=== PATIENT | male | born 1980 | race Caucasian/White ===

== ENCOUNTER 2023-12-12 05:04 | Inpatient (IN) ==
--- OUTSIDE RECORDS SUMMARY | 2023-12-12 05:11 | External Medical Summary | Continuity of Care Document ---
Author Name Unknown Organization [facility] Edyta Mendez [address] [facility] [address] [place] [phone] Care Team Providers Care Credit Adjuster Name Role Phone Carri Pacheco Primary Care Physician [phone] [id number]/23 [facility] [address] [facility] 30 [facility], [address]tr[address] [place] [phone] Encounter Diagnosis C7 cervical fracture(Discharge Diagnosis) - 06/24/23 Cervical stenosis of spine(Discharge Diagnosis) - 06/24/23 Arm weakness(Discharge Diagnosis) - 06/24/23 Discharge Disposition: Home or Self Care Attending Physician: SENG Morales Joshua P Allergies, Adverse Reactions, Alerts Substance Reaction Severity Status amoxicillin patient stated he was a baby does not kno w Active Immunizations Given and Recorded Vaccine Date Status Refusal Reason influenza virus vaccine, inactivated 09/22/21 Give n SARS-CoV-2 (COVID-19) mRNA BNT-162b2 vax 1 02/05/21 Recorded SARS-CoV-2 (COVID-19) mRNA BNT-162b2 vax 2 01/13/21 Recorded 1Result Comment: 2021-09-22: Historical information-source unspecified 2Result Comment: 2021-09-22: Historical information-source unspecified Medications Flexeril 10 mg oral tablet Start: 04/23/23 15:35:00 EDT, 1 tab, PO, tid, Disp# 21 tab, Refills: 0, PRN: as needed for spasm, Pharmacy: [facility] Start Date: 04/23/23 Status: Ordered oxyCODONE 5 mg oral tablet Start: 04/23/23 15:35:00 EDT, 1 tab, PO, q6h, Disp# 15 tab, Refills: 0, PRN: as needed for pain, Pharmacy: [facility] Start Date: 04/23/23 Stop Date: 04/28/23 Status: Ordered Mental Status 06/24/23 Barriers to Learning one year None evide nt Mandatory Health Literacy Documentation Yes Health Literacy Communication Barriers N ever Primary Language Hungarian Problem List Condition Confirmation Course Effective Dates Status Health St [facility] Informant Right ankle pain Confirmed Active Gout Confirmed Active Right knee pain Confirmed Active Diagnosis Diagnosis Type Effective Dates Health Status Cl inical Service Informant Cervical stenosis of spine Discharge Diagnosis 06/24/23 Non-Specified C7 cervical fracture Discharge Diagnosis 06/24/23 Non-Specified Arm weakness Discharge Diagnosis 06/24/23 Non-Specified Procedures Procedure Date Related Diagnosis Body Site Status LASIK 09/30/22 Completed Tear of anterior cruciate li gament of right knee 11/01/14 Completed Appendectomy Completed Bursectomy 1 Completed 1R knee Social History Social History Type Response Smoking Status Never smoked cigaret nilsa Sex Patient Care team information Care Team Personnel Name: MD Junior, Carri Olmedo Position: Physician Member Role: Primary Care Provider Address: Address: [address] [place] [address] [place]
--- OUTSIDE RECORDS SUMMARY | 2023-12-12 05:11 | External Medical Summary | Continuity of Care Document ---
Author Name Unknown Organization [id number] Address [address] [place] [phone] Care Team Providers Care Beck Tender Name Role Phone Carri Pacheco Primary Care Physician [phone] [id number] Date(s): 06/22/23 - 06/22/23 [facility] [address] [place] [id number] [facility] [address] [place] [address] Discharge Disposition: Home or Self Care Attending Physician: MD Pacheco Ravishankar E Referring Physician: MD Godwin Jesse E Allergies, Adverse Reactions, Alerts Substance Reaction Severity [...] 0, PRN: as needed for spasm, Pharmacy: [facility] Start Date: 04/23/23 Status: Ordered oxyCODONE 5 mg oral tablet Start: 04/23/23 15:35:00 EDT, 1 tab, PO, q6h, Disp# 15 tab, Refills: 0, PRN: as needed for pain, Pharmacy: [facility] Start Date: 04/23/23 Stop Date: 04/28/23 Status: Ordered Problem List Condition Confirmation Course Effective Dates Status Health St [facility] Informant Right ankle pain Confirmed Active Gout Confirmed Active Right knee pain Confirmed Active Procedures Procedure Date Related Diagnosis Body Site Status LASIK 09/30/22 Completed Tear of anterior cruciate li gament of right knee 11/01/14 Completed Appendectomy Completed Bursectomy 1 Completed 1R knee Social History Social History Type Response Smoking Status Never smoked cigaret nilsa Sex Patient Care team information Care Team Personnel Name: MD Junior, Carri Olmedo Position: Physician Member Role: Primary Care Provider Address: Address: [address] [place] [address], [place] [address] [place]
--- OUTSIDE RECORDS SUMMARY | 2023-12-12 05:11 | External Medical Summary | Continuity of Care Document ---
Author Name Unknown Organization [id number] Address [address] [place] [phone] Care Team Providers Care Bariatric Coordinator Name Role Phone Carri Pacheco Primary Care Physician [phone] [id number] Date(s[facility] - [facility]/22/23 [facility] [address] [place] [id number] [facility] [address] [place] [address] Discharge Disposition: Home or Self Care Attending [...] 0, PRN: as needed for spasm, Pharmacy: [facility] Start Date: 04/23/23 Status: Ordered oxyCODONE 5 mg oral tablet Start: 04/23/23 15:35:00 EDT, 1 tab, PO, q6h, Disp# 15 tab, Refills: 0, PRN: as needed for pain, Pharmacy: [facility] Start Date: 04/23/23 Stop Date: 04/28/23 Status: [...] Member Role: Primary Care Provider Address: Address: [address] [place] [address], [place] [address] [place]
[2023-12-12] MEDS: SODIUM CHLORIDE 0.9% 1,000 ML IV SCH ×2 (05:39→05:58)
[2023-12-12] MEDS ORDERED: VANCOMYCIN CONSULT ACTIVE PRN (05:53)
[2023-12-12] MEDS: KETOROLAC 30 MG/ML VIAL IV STA (05:57)
[2023-12-12] MEDS: ACETAMINOPHEN 1,000 MG/100 ML VIAL IV STA (05:57)
[2023-12-12 06:12] LABS: Appearance Urine Turbid (Clear); Bilirubin Urine Negative (Negative); Blood Urine 2+ (Negative); Color Urine Orange; Epithelial Cell Urine Auto >30 /lpf (0-5); Glucose Urine UA Negative (Negative); Ketones Urine Negative (Negative); Leukocyte Esterase Urine Negative (Negative); Nitrite Urine Negative (Negative); Protein Urine 2+ (Negative); RBC Urine Automated 0-4 /hpf (0-4); Urobilinogen Urine Negative (Negative)
[2023-12-12] MEDS: VANCOMYCIN HCL 2,000 MG in SODIUM CHLORIDE 0.9% 500 ML IV ONE (06:16)
[2023-12-12] MEDS: CEFEPIME 2,000 MG in SYRINGE 0 ML IV STA (06:16)
[2023-12-12 06:21] LABS: BUN Creatinine Ratio 21.3 (10-20); Bilirubin Direct 0.6 mg/dl (0-0.2); Bilirubin,Total 1.9 mg/dl (0.2-1.0); Creatinine Clr Calc Pharmacy 77.3 ml/min; Est GFR (African American) 65.2 ml/min; Est GFR (Non-African American) 56.2 ml/min; Magnesium 1.4 mg/dl (1.7-2.4); Potassium 3.5 mmol/L (3.5-5.1); Total Protein 7.5 gm/dl (6.0-8.3)
[2023-12-12 06:26] LABS: Troponin I High Sensitivity 16.3 pg/ml (0-20)
[2023-12-12 06:40] LABS: Hematocrit (blood only) 46.7 % (42.0-52.0); Hemoglobin 16.8 g/dl (14.0-18.0); Mean Corpuscular Hemoglobin 29.9 pg (25.0-34.0); Mean Corpuscular Volume 83.1 fL (80.0-100.0); Mean Platelet Volume 10.4 fL (9.4-12.4); Platelet Count 134 K/uL (130-400); RDW Coefficient of Variation 12.4 % (11.5-14.5); RDW Standard Deviation 37.8 fL (36.4-46.3); Red Blood Count 5.62 M/uL (4.70-6.10); White Blood Count 9.75 K/ul (4.8-10.8)
[2023-12-12] MEDS: OPTIRAY 320 500ml IV ONE (06:48)
[2023-12-12 06:58] LABS: Basophils # (auto) 0.03 K/uL (0.00-0.20); Basophils % (auto) 0.3 %; Echinocytes 1+; Eosinophils # (auto) 0.02 K/uL (0.00-0.50); Eosinophils % (auto) 0.2 %; Immature Granulocytes # (auto) 0.04 K/uL (0.01-0.20); Immature Granulocytes % (auto) 0.4 %; Lymphocytes # (auto) 0.24 K/uL (1.20-3.40); Lymphocytes % (auto) 2.5 %; Monocytes # (auto) 0.27 K/uL (0.11-0.59); Monocytes % (auto) 2.8 %; Neutrophils # (auto) 9.15 K/uL (1.40-6.50); Neutrophils % (auto) 93.8 %
[2023-12-12 07:02] LABS: Bacteria Urine Automated 1+ (Negative)
--- NOTE | 2023-12-12 07:04 | Emergency Department Note ---
History of Present Illness General Chief complaint: Fever Stated complaint: FEVER,SWELLING Time Seen by Provider: 12/12/23 05:50 History of Present Illness Maximum Pain Intensity: 10 This is a 43-year-old male presenting to the emergency department for evaluation of fever and left side armpit swelling for the past 2 days. The patient is usually healthy and does not take medication on a regular basis. He states that some of his kids have been ill with flulike symptoms, however he developed pain into his armpit. He noticed redness and swelling in this area, and the pain is increased to a 10/10. He has had a fever at home. Home Medications Medication Instructions Recorded Confirmed Type ondansetron 8 mg disintegrating 8 mg PO TID PRN Nausea And Vomiting 12/12/23 12/12/23 History tablet Allergies Allergy/AdvReac Type Severity Reaction Status Date / Time amoxicillin Allergy Unknown HAPPENED Verified 12/12/23 08:10 AN INFANT Penicillins Allergy Unknown HAPPENED Verified 12/12/23 08:10 AN INFANT Past Med/Surg History Medical History No pertinent past medical history No pertinent family history Surgical History No pertinent past surgical history Social History Smoking Status: Never smoker Preferred Language: Citizen Of [place] Feels Safe at Home: Yes Review of Systems A total of 10 systems reviewed and were otherwise negative Physical Exam Vital Signs Vital Signs - 24 hr 12/12/23 05:09 12/12/23 05:29 12/12/23 05:46 Temperature 36.9 C 38.6 C H Temperature Source Oral Oral Pulse Rate 132 H 115 H Pulse Rate [Finger] 118 H Pulse Rate from SpO2 Sensor Respiratory Rate 18 28 H Respiratory Effort / Characteristics Non-Labored Spontaneous Non-Labored Respiratory Depth Normal Normal Respiratory Pattern Regular Regular Blood Pressure 90/65 L Blood Pressure [Right Arm] 120/80 Blood Pressure Mean 73 Blood Pressure Mean [Right Arm] 93 Blood Pressure Position Sitting Pulse Oximetry 98 97 Oxygen Delivery Method Room Air Sepsis Recent Fever Within 48 Hours Yes Sepsis New/Unexplained Change in Mental Status N/A Sepsis Action Taken by Nursing Adv Provider Notified 12/12/23 05:46 12/12/23 07:05 12/12/23 07:15 Temperature Temperature Source Pulse Rate 110 H 105 H Pulse Rate [Finger] Pulse Rate from SpO2 Sensor 110 H 105 H Respiratory Rate 17 24 Respiratory Effort / Characteristics Respiratory Depth Respiratory Pattern Blood Pressure 113/71 121/77 Blood Pressure [Right Arm] Blood Pressure Mean 85 91 Blood Pressure Mean [Right Arm] Blood Pressure Position Pulse Oximetry 96 98 Oxygen Delivery Method Room Air Room Air Room Air Sepsis Recent Fever Within 48 Hours Sepsis New/Unexplained Change in Mental Status Sepsis Action Taken by Nursing 12/12/23 07:28 12/12/23 07:30 12/12/23 08:00 Temperature 37.5 C Temperature Source Oral Pulse Rate 103 H 98 H Pulse Rate [Finger] Pulse Rate from SpO2 Sensor 100 H 96 H Respiratory Rate 23 19 Respiratory Effort / Characteristics Respiratory Depth Respiratory Pattern Blood Pressure 110/71 106/58 L Blood Pressure [Right Arm] Blood Pressure Mean 84 74 Blood Pressure Mean [Right Arm] Blood Pressure Position Pulse Oximetry 96 96 Oxygen Delivery Method Room Air Room Air Sepsis Recent Fever Within 48 Hours Sepsis New/Unexplained Change in Mental Status Sepsis Action Taken by Nursing 12/12/23 08:21 12/12/23 08:30 12/12/23 09:35 Temperature Temperature Source Pulse Rate 100 H 97 H 114 H Pulse Rate [Finger] Pulse Rate from SpO2 Sensor 100 H 98 H 114 H Respiratory Rate 13 23 24 Respiratory Effort / Characteristics Respiratory Depth Respiratory Pattern Blood Pressure 111/71 96/72 L 103/74 Blood Pressure [Right Arm] Blood Pressure Mean 84 80 83 Blood Pressure Mean [Right Arm] Blood Pressure Position Pulse Oximetry 97 96 97 Oxygen Delivery Method Room Air Room Air Room Air Sepsis Recent Fever Within 48 Hours Sepsis New/Unexplained Change in Mental Status Sepsis Action Taken by Nursing 12/12/23 10:00 12/12/23 10:11 12/12/23 10:31 Temperature Temperature Source Pulse Rate 109 H 107 H 109 H Pulse Rate [Finger] Pulse Rate from SpO2 Sensor 109 H Respiratory Rate 28 H 21 Respiratory Effort / Characteristics Respiratory Depth Respiratory Pattern Blood Pressure 119/76 113/72 Blood Pressure [Right Arm] Blood Pressure Mean 90 85 Blood Pressure Mean [Right Arm] Blood Pressure Position Pulse Oximetry 98 98 Oxygen Delivery Method Room Air Room Air Sepsis Recent Fever Within 48 Hours Sepsis New/Unexplained Change in Mental Status Sepsis Action Taken by Nursing 12/12/23 10:45 12/12/23 11:02 12/12/23 11:59 Temperature 37.1 C 38.8 C H Temperature Source Oral Oral Pulse Rate Pulse Rate [Finger] 110 H Pulse Rate from SpO2 Sensor Respiratory Rate 18 Respiratory Effort / Characteristics Respiratory Depth Respiratory Pattern Blood Pressure Blood Pressure [Right Arm] 113/72 Blood Pressure Mean Blood Pressure Mean [Right Arm] 85 Blood Pressure Position Pulse Oximetry 98 Oxygen Delivery Method Sepsis Recent Fever Within 48 Hours Sepsis New/Unexplained Change in Mental Status Sepsis Action Taken by Nursing 12/12/23 13:00 12/12/23 13:55 Temperature 38.7 C H Temperature Source Oral Pulse Rate 123 H Pulse Rate [Finger] 128 H Pulse Rate from SpO2 Sensor Respiratory Rate 16 Respiratory Effort / Characteristics Respiratory Depth Respiratory Pattern Blood Pressure Blood Pressure [Right Arm] 97/70 L Blood Pressure Mean Blood Pressure Mean [Right Arm] 79 Blood Pressure Position Pulse Oximetry 96 Oxygen Delivery Method Sepsis Recent Fever Within 48 Hours Sepsis New/Unexplained Change in Mental Status Sepsis Action Taken by Nursing VITALS: Vitals are noted on the nurse's note and reviewed by myself. Vital signs with fever, tachycardia, and hypotension GENERAL: Well-developed, well-nourished, white male who appears ill on presentation. HEAD: Normocephalic atraumatic. EARS: External ear normal. External auditory canals clear, tympanic membranes pearly barnard without erythema or effusion bilaterally. EYES: Pupils equal round and reactive to light and accommodation. Conjunctivae without injection, sclerae without icterus. Extraocular movements intact. NOSE: Patent, turbinates without inflammation or discharge. MOUTH: Mucous membranes moist. Tonsils are not enlarged. Pharynx without erythema, blood, or exudate. Uvula midline. Airway patent. NECK: Supple without nuchal rigidity. No lymphadenopathy. No thyromegaly. Cervical spine is nontender. HEART: Tachycardic rate with regular rhythm. LUNGS: Clear to auscultation bilaterally without wheezes, rales or rhonchi. No retractions or accessory muscle use. CHEST WALL: There is an erythematous patch roughly 5 to 6 cm in diameter along the left side lateral chest wall into the axilla. No obvious palpable abscess identified. The area is warm on palpation. No crepitus. ABDOMEN: Positive normal bowel sounds x 4. Soft, nontender, without masses or organomegaly. No guarding or rebound tenderness. MUSCULOSKELETAL: No muscle atrophy, erythema, or edema noted. Full range of motion in all extremities. NEURO: Patient was alert and oriented to person place and time. CN II through XII grossly intact. Course Administered Medications Acetaminophen (Acetaminophen 325 Mg Tab) 650 mg PO [id number] KELLIE Stop: 01/11/24 18:59 Last Admin: 12/12/23 22:50 Dose: 650 mg Documented By: Admin: 12/12/23 18:09 Dose: 650 mg Documented By: RO Heparin Sodium (Porcine) (Heparin Sod 5,000 Unit/0.5 Ml Vial) 5,000 units SQ Q12 KELLIE Stop: 01/11/24 20:59 Last Admin: 12/12/23 22:50 Dose: 5,000 units Documented By: RICH Cefepime HCl 2,000 mg/ Syringe 20 mls @ 5 mls/min IV Q8H KELLIE; Protocol Stop: 12/19/23 16:59 Last Admin: 12/12/23 16:28 Dose: 5 mls/min Documented By: FIONA Clindamycin Phosphate (Cleocin/D5w) 600 mg in 50 mls @ 100 mls/hr IV Q8H KELLIE Stop: 12/19/23 18:29 Last Infusion: 12/12/23 18:43 Dose: Infused Documented By: Admin: 12/12/23 18:09 Dose: 100 mls/hr Documented By: RO Daptomycin 300 mg/ Syringe 6 mls @ 3 mls/min IV Q24H KELLIE; Protocol Stop: 12/19/23 17:59 Last Admin: 12/12/23 18:27 Dose: 3 mls/min Documented By: RO Parenteral Electrolytes (Plasma-Lyte A Ph 7.4) 1,000 mls @ 125 mls/hr IV .Q8H KELLIE Stop: 12/13/23 15:35 Last Admin: 12/12/23 21:15 Dose: 125 mls/hr Documented By: Infusion: 12/12/23 21:08 Dose: Infused Documented By: Admin: 12/12/23 16:27 Dose: 125 mls/hr Documented By: FIONA Discontinued Medications Cefepime HCl (Cefepime 2,000 Mg/20 Ml Vial) Confirm Administered Dose 2,000 mg .ROUTE .STK-MED ONE Stop: 12/12/23 16:27 Last Admin: 12/12/23 16:28 Dose: Not Given Documented By: FIONA Diphenhydramine HCl (Diphenhydramine 50 Mg/Ml Vial) 25 mg IV NOW STA Stop: 12/12/23 07:10 Last Admin: 12/12/23 07:12 Dose: 25 mg Documented By: DEANNA Sodium Chloride (Nss) 1,000 mls @ 999 mls/hr IV .Q1H1M KELLIE Stop: 12/12/23 06:30 Last Infusion: 12/12/23 06:25 Dose: Infused Documented By: Admin: 12/12/23 05:39 Dose: 999 mls/hr Documented By: JARAD Acetaminophen (Ofirmev) 1,000 mg in 100 mls @ 400 mls/hr IV NOW STA Stop: 12/12/23 06:04 Last Infusion: 12/12/23 08:02 Dose: Infused Documented By: Admin: 12/12/23 05:57 Dose: 400 mls/hr Documented By: JARAD Sodium Chloride (Nss) 1,000 mls @ 999 mls/hr IV .Q1H1M KELLIE Stop: 12/12/23 07:52 Last Infusion: 12/12/23 08:02 Dose: Infused Documented By: Admin: 12/12/23 06:25 Dose: 999 mls/hr Documented By: Infusion: 12/12/23 06:25 Dose: Infused Documented By: Admin: 12/12/23 05:58 Dose: 999 mls/hr Documented By: JARAD Vancomycin HCl 2,000 mg/ (Sodium Chloride) 540 mls @ 200 mls/hr IV NOW ONE Stop: 12/12/23 08:34 Last Infusion: 12/12/23 12:41 Dose: Infused Documented By: Infusion: 12/12/23 07:22 Dose: 100 mls/hr Documented By: Admin: 12/12/23 06:16 Dose: 200 mls/hr Documented By: JARAD Cefepime HCl 2,000 mg/ Syringe 20 mls @ 5 mls/min IV NOW STA; Protocol Stop: 12/12/23 05:56 Last Admin: 12/12/23 06:16 Dose: 5 mls/min Documented By: JARAD Magnesium Sulfate/Dextrose (Magnesium Sulfate / D5w) 1 gm in 100 mls @ 200 mls/hr IV Q30M [facility] Stop: 12/12/23 07:29 Last Infusion: 12/12/23 09:43 Dose: Infused Documented By: Admin: 12/12/23 08:01 Dose: 200 mls/hr Documented By: Infusion: 12/12/23 07:56 Dose: Infused Documented By: Admin: 12/12/23 07:26 Dose: 200 mls/hr Documented By: DEANNA Parenteral Electrolytes (Plasma-Lyte A Ph 7.4) 1,000 mls @ 999 mls/hr IV .Q1H1M ONE Stop: 12/12/23 07:28 Last Infusion: 12/12/23 10:47 Dose: Infused Documented By: Admin: 12/12/23 08:01 Dose: 999 mls/hr Documented By: DEANNA Clindamycin Phosphate (Cleocin/D5w) 600 mg in 50 mls @ 100 mls/hr IV NOW ONE Stop: 12/12/23 09:44 Last Infusion: 12/12/23 10:46 Dose: Infused Documented By: Admin: 12/12/23 09:31 Dose: 100 mls/hr Documented By: DEANNA Potassium Chloride/Sodium Chloride (Normal Saline W/20 Meq Kcl) 20 meq in 1,000 mls @ 125 mls/hr IV .Q8H [facility]; Protocol Stop: 12/12/23 22:14 Last Admin: 12/12/23 16:27 Dose: 125 mls/hr Documented By: FIONA Parenteral Electrolytes (Plasma-Lyte A Ph 7.4) 500 mls @ 999 mls/hr IV .Q31M ONE Stop: 12/12/23 15:26 Last Infusion: 12/12/23 17:26 Dose: Infused Documented By: Admin: 12/12/23 15:20 Dose: 999 mls/hr Documented By: RO Ioversol (Optiray 320 500ml) 93 ml IV ONCE ONE Stop: 12/12/23 06:51 Last Admin: 12/12/23 06:48 Dose: 93 ml Documented By: ALVAREZ Ketorolac Tromethamine (Ketorolac 30 Mg/Ml Vial) 30 mg IV NOW STA Stop: 12/12/23 05:51 Last Admin: 12/12/23 05:57 Dose: 30 mg Documented By: JARAD Ketorolac Tromethamine (Ketorolac Tromethamine 15 Mg/Ml Vial) 15 mg IV NOW ONE Stop: 12/12/23 12:09 Last Admin: 12/12/23 12:37 Dose: 15 mg Documented By: RO Medical Decision Making Differential Diagnosis Differential diagnosis includes: Etiologies such as sepsis, cellulitis, abscess, osteomyelitis, MRSA infection, DVT, necrotizing fasciitis, dermatitis, drug eruption, as well as others were entertained Laboratory Data 12/12/23 05:38 12/12/23 15:17 Lab Results 12/12/23 12/12/23 12/12/23 Range/Units 05:38 05:39 07:34 WBC 9.75 (4.8-10.8) K/ul RBC 5.62 (4.70-6.10) M/uL Hgb 16.8 (14.0-18.0) g/dl Hct 46.7 (42.0-52.0) % MCV 83.1 (80.0-100.0) fL MCH 29.9 (25.0-34.0) pg MCHC 36.0 (32.0-36.0) g/dL RDW Std Deviation 37.8 (36.4-46.3) fL RDW Coeff of Thony 12.4 (11.5-14.5) % Plt Count 134 (130-400) K/uL MPV 10.4 (9.4-12.4) fL Immature Gran % (Auto) 0.4 % Neut % (Auto) 93.8 % Lymph % (Auto) 2.5 % [place] % (Auto) 2.8 % Eos % (Auto) 0.2 % Baso % (Auto) 0.3 % Neut # (Auto) 9.15 H (1.40-6.50) K/uL Lymph # (Auto) 0.24 L (1.20-3.40) K/uL [place] # (Auto) 0.27 (0.11-0.59) K/uL Eos # (Auto) 0.02 (0.00-0.50) K/uL Baso # (Auto) 0.03 (0.00-0.20) K/uL Immature Gran # (Auto) 0.04 (0.01-0.20) K/uL Echinocytes 1+ Sodium 126 L (136-145) mmol/L Potassium 3.5 (3.5-5.1) mmol/L Chloride 90 L (98-107) mmol/L Carbon Dioxide 21 (21-32) mmol/L Anion Gap 15 H (3-11) BUN 32 H (6-23) mg/dl Creatinine 1.50 H (0.6-1.4) mg/dl Est Cr Clr Drug Dosing 77.3 ml/min Est GFR ( Amer) 65.2 ml/min Est GFR (Non-Af Amer) 56.2 ml/min BUN/Creatinine Ratio 21.3 H (10-20) Glucose 138 H (70-99(Fasting)) mg/dl Lactate 4.9 H* 3.2 H* (0.4-2.0) mmol/L Calcium 9.0 (8.6-10.3) mg/dl Magnesium 1.4 L (1.7-2.4) mg/dl Total Bilirubin 1.9 H (0.2-1.0) mg/dl Direct Bilirubin 0.6 H (0-0.2) mg/dl AST 18 (13-39) U/L ALT 26 (7-52) U/L Alkaline Phosphatase 53 (34-104) U/L Troponin I High Sens 16.3 (0-20) pg/ml Total Protein 7.5 (6.0-8.3) gm/dl Albumin 4.0 (3.4-5.0) gm/dl Procalcitonin 25.60 H (0-0.5) ng/ml Urine Color [place] Urine Appearance Turbid A (Clear) Urine pH 5.0 (4.5-7.5) Ur Specific [place] 1.030 (1.000-1.030) Urine Protein 2+ H (Negative) Urine Glucose (UA) Negative (Negative) Urine Ketones Negative (Negative) Urine Blood 2+ H (Negative) Urine Nitrite Negative (Negative) Urine Bilirubin Negative (Negative) Urine Urobilinogen Negative (Negative) Ur Leukocyte Esterase Negative (Negative) Urine WBC (Auto) 10-30 H (0-5) /hpf Urine RBC (Auto) 0-4 (0-4) /hpf U Hyaline Cast (Auto) 1-5 (0-5) /lpf U Epithel Cells (Auto) >30 H (0-5) /lpf Urine Bacteria (Auto) 1+ H (Negative) Ur Renal Epithelial Cell Not Reportable Granular Casts 1-5 H (0) /lpf Urine Yeast Not Reportable Adenovirus (PCR) Not Detected (NotDetected) B. pertussis DNA (PCR) Not Detected (NotDetected) B.parapertussis DNA PCR Not Detected (NotDetected) Lyme Disease Screen Negative (Negative) C. pneumoniae DNA (PCR) Not Detected (NotDetected) Coronavirus OC43 (PCR) Not Detected (NotDetected) Coronavirus HKU1 (PCR) Not Detected (NotDetected) Coronavirus 229E (PCR) Not Detected (NotDetected) SARS-CoV-2 (PCR) Not Detected (NotDetected) Coronavirus NL63 (PCR) Not Detected (NotDetected) Human Metapneumovir PCR Not Detected (NotDetected) Influenza Type A (PCR) Not Detected (NotDetected) Influenza Type B (PCR) Not Detected (NotDetected) M. pneumoniae (PCR) Not Detected (NotDetected) Parainfluenza 1 (PCR) Not Detected (NotDetected) Parainfluenza 2 (PCR) Not Detected (NotDetected) Parainfluenza 3 (PCR) Not Detected (NotDetected) Parainfluenza 4 (PCR) Not Detected (NotDetected) RSV (PCR) Not Detected (NotDetected) Entero/Rhino (PCR) Not Detected (NotDetected) Streptococcus sp PCR DETECTED A (NotDetected) Group A Strep (PCR) (NotDetected) S. pyogenes (PCR) DETECTED A (NotDetected) Bld Cult ID Panel PCR See PCR Comment (NotDetected) 12/12/23 Range/Units 09:29 WBC (4.8-10.8) K/ul RBC (4.70-6.10) M/uL Hgb (14.0-18.0) g/dl Hct (42.0-52.0) % MCV (80.0-100.0) fL MCH (25.0-34.0) pg MCHC (32.0-36.0) g/dL RDW Std Deviation (36.4-46.3) fL RDW Coeff of Thony (11.5-14.5) % Plt Count (130-400) K/uL MPV (9.4-12.4) fL Immature Gran % (Auto) % Neut % (Auto) % Lymph % (Auto) % [place] % (Auto) % Eos % (Auto) % Baso % (Auto) % Neut # (Auto) (1.40-6.50) K/uL Lymph # (Auto) (1.20-3.40) K/uL [place] # (Auto) (0.11-0.59) K/uL Eos # (Auto) (0.00-0.50) K/uL Baso # (Auto) (0.00-0.20) K/uL Immature Gran # (Auto) (0.01-0.20) K/uL Echinocytes Sodium (136-145) mmol/L Potassium (3.5-5.1) mmol/L Chloride (98-107) mmol/L Carbon Dioxide (21-32) mmol/L Anion Gap (3-11) BUN (6-23) mg/dl Creatinine (0.6-1.4) mg/dl Est Cr Clr Drug Dosing ml/min Est GFR ( Amer) ml/min Est GFR (Non-Af Amer) ml/min BUN/Creatinine Ratio (10-20) Glucose (70-99(Fasting)) mg/dl Lactate (0.4-2.0) mmol/L Calcium (8.6-10.3) mg/dl Magnesium (1.7-2.4) mg/dl Total Bilirubin (0.2-1.0) mg/dl Direct Bilirubin (0-0.2) mg/dl AST (13-39) U/L ALT (7-52) U/L Alkaline Phosphatase (34-104) U/L Troponin I High Sens (0-20) pg/ml Total Protein (6.0-8.3) gm/dl Albumin (3.4-5.0) gm/dl Procalcitonin (0-0.5) ng/ml Urine Color Urine Appearance (Clear) Urine pH (4.5-7.5) Ur Specific [place] (1.000-1.030) Urine Protein (Negative) Urine Glucose (UA) (Negative) Urine Ketones (Negative) Urine Blood (Negative) Urine Nitrite (Negative) Urine Bilirubin (Negative) Urine Urobilinogen (Negative) Ur Leukocyte Esterase (Negative) Urine WBC (Auto) (0-5) /hpf Urine RBC (Auto) (0-4) /hpf U Hyaline Cast (Auto) (0-5) /lpf U Epithel Cells (Auto) (0-5) /lpf Urine Bacteria (Auto) (Negative) Ur Renal Epithelial Cell Granular Casts (0) /lpf Urine Yeast Adenovirus (PCR) (NotDetected) B. pertussis DNA (PCR) (NotDetected) B.parapertussis DNA PCR (NotDetected) Lyme Disease Screen (Negative) C. pneumoniae DNA (PCR) (NotDetected) Coronavirus OC43 (PCR) (NotDetected) Coronavirus HKU1 (PCR) (NotDetected) Coronavirus 229E (PCR) (NotDetected) SARS-CoV-2 (PCR) (NotDetected) Coronavirus NL63 (PCR) (NotDetected) Human Metapneumovir PCR (NotDetected) Influenza Type A (PCR) (NotDetected) Influenza Type B (PCR) (NotDetected) M. pneumoniae (PCR) (NotDetected) Parainfluenza 1 (PCR) (NotDetected) Parainfluenza 2 (PCR) (NotDetected) Parainfluenza 3 (PCR) (NotDetected) Parainfluenza 4 (PCR) (NotDetected) RSV (PCR) (NotDetected) Entero/Rhino (PCR) (NotDetected) Streptococcus sp PCR (NotDetected) Group A Strep (PCR) NOT DETECTED (NotDetected) S. pyogenes (PCR) (NotDetected) Bld Cult ID Panel PCR (NotDetected) MDM Narrative Physical exam and history were performed. Nursing notes, EMR, and Medication List were personally reviewed. No social concerns were identified as barriers to patients care. Patient appears to have fever, tachycardia, and hypotension on presentation to the ER. He appears ill and may have a left side chest wall cellulitis. IV access was established and labs were obtained. Patient was hydrated with a sepsis fluid bolus based on actual body weight. He was started on vancomycin and cefepime here in the ER as he is penicillin allergic. Due to his possible infection he was sent to CT scan for further imaging of the chest wall. Case was discussed with my attending, who remained closely involved in patient care and decision making. Patient's blood work is as above and was reviewed. He does not have a significantly elevated white blood cell count or gross anemia. His lactic is markedly elevated at 4.9. Procalcitonin is also over 25. Magnesium is low. Transaminases are not diagnostic. Bio fire is negative. He was given additional electrolyte solution. Patient was reevaluated multiple times throughout the course of his stay. He does appear septic. I did give him Toradol and Tylenol here in the ER. He may have started to have some reaction to the vancomycin, and we did slow his rate and give him a dose of Benadryl. Overall the patient is not well for discharge. CT scan is pending, however with the patient's status I did not wish to delay involving the hospitalist team. The case was discussed with the hospitalist team for admission. They agreed to evaluate the patient here in the ER. Please see their dictation for further patient course, plan, and disposition. The chart was completed utilizing [employer] Voice Recognition Software. Grammatical errors, random word insertions, pronoun errors, and incomplete sentences are an occasional consequence of this system due to software limitations, ambient noise, and hardware issues. Any formal questions or concerns about the content, text, or information contained within the body of this dictation should be directly addressed to the provider for clarification. . Impression & Plan Sepsis Discharge Plan Visit Data Chief Complaint: Fever Stated Complaint: FEVER,SWELLING ED Provider: Agapito Baca ED Midlevel Provider: Gil Robles Discharge Problem: Sepsis Discharge Instructions Interventions: ED Discharge Assessment Last Done: 12/12/23 15:36
[2023-12-12] MEDS: diphenhydrAMINE 50 MG/ML VIAL IV STA (07:12)
[2023-12-12] MEDS: MAGNESIUM SULFATE / D5W 1 GM/100 ML BAG IV SCH (07:26)
[2023-12-12 07:45] LABS: Adenovirus PCR Not Detected (NotDetected); Bordetella parapertussis PCR Not Detected (NotDetected); Bordetella pertussis PCR Not Detected (NotDetected); Chlamydia pneumoniae PCR Not Detected (NotDetected); Coronavirus 229E PCR Not Detected (NotDetected); Coronavirus CoV-2 (COVID19)PCR Not Detected (NotDetected); Coronavirus HKU1 PCR Not Detected (NotDetected); Coronavirus NL63 PCR Not Detected (NotDetected); Coronavirus OC43PCR Not Detected (NotDetected); Human Metapneumovirus PCR Not Detected (NotDetected); Influenza A PCR Not Detected (NotDetected); Influenza B PCR Not Detected (NotDetected); Mycoplasma pneumoniae PCR Not Detected (NotDetected); Parainfluenza Virus 1 PCR Not Detected (NotDetected); Parainfluenza Virus 2 PCR Not Detected (NotDetected); Parainfluenza Virus 3 PCR Not Detected (NotDetected); Parainfluenza Virus 4 PCR Not Detected (NotDetected); Respiratory Syncytial VirusPCR Not Detected (NotDetected); Rhinovirus/Enterovirus PCR Not Detected (NotDetected)
[2023-12-12] MEDS: PLASMA-LYTE A 1,000 ML IV ONE (08:01)
--- NOTE | 2023-12-12 08:15 | CT Scan Report ---
CT OF THE CHEST WITH IV CONTRAST CLINICAL HISTORY: Left chest wall cellulitis into left axilla COMPARISON STUDY: Chest radiographs March 13, 2023 and December 12, 2023. TECHNIQUE: Following IV administration of 93 mL of Optiray, helical axial images of the chest were o btained. Sagittal and coronal reconstructions were viewed as well as maximal intensity projections o n an independent 3-D workstation. Automated exposure control was utilized for the study. A dose low ering technique was utilized adhering to the principles of ALARA. CT DOSE: 1053.98 mGy.cm FINDINGS: Note is made of extensive fluid and stranding within the left lower neck, supraclavicular region, left axillar and left chest wall. This extends into the left superior mediastinum. Multiple m ildly enlarged lymph nodes are probably reactive. A left level 4 cervical lymph node on image 17 of 2 73 measures 2 x 0.8 cm. A left axillary node measures 1.3 x 1.3 cm. There is asymmetric enlargement o f the left pectoralis major and minor muscles as well as the left shoulder and left lower cervical mu sculature. This also involves the lateral chest wall musculature. No soft tissue gas. No rim-enhancin g fluid collection is present. Size of the heart is normal. There is no pericardial effusion. Trace l eft pleural effusion is present. There is no consolidation to suggest pneumonia. No areas of bony linden truction are present. Visualized portions of the upper abdomen demonstrate mild splenomegaly. There i s possible hepatic steatosis. Mild symmetric bilateral perinephric stranding. IMPRESSION: 1. Extensive inflammation within the left lower neck, supraclavicular region, left axilla and chest w all, extending into the mediastinum. The etiology is not clear however the findings favor an extensi ve infectious process with cellulitis. Although no soft tissue gas, infectious fasciitis cannot be ex cluded. Associated asymmetric enlargement of multiple left-sided muscles, as described above, could r epresent an infectious myositis. No soft tissue gas. No rim-enhancing fluid collections. 2. Left lower cervical and axillary lymphadenopathy, likely reactive. 3. Trace left pleural effusion. 4. Mild splenomegaly. ACT 112: Negative or not required by law. Electronically signed by: Rubens Becker M.D. 12/12/2023 8:13 AM
--- NOTE | 2023-12-12 08:23 | XRay Report ---
XR chest 1V portable CLINICAL HISTORY: Sepsis COMPARISON STUDY: Chest radiograph March 13, 2023. FINDINGS: Lung volumes are normal. Lungs are clear. There is no pneumothorax or pleural effusion. Car diac size is normal. Mediastinal contours are normal. There is no evidence for pulmonary edema. Left lower cervical, axillary and chest wall soft tissue swelling is present. No soft tissue gas is identi fied. IMPRESSION: 1. No acute cardiopulmonary findings. 2. Nonspecific left lower cervical, axillary and chest wall soft tissue swelling. ACT 112: Negative or not required by law. Electronically signed by: Rubens Becker M.D. 12/12/2023 8:22 AM
--- NOTE | 2023-12-12 09:24 | History & Physical Report ---
Date of Service December 12, 2023 Assessment & Plan (1) Cellulitis of arm, left: Plan: 43 year old male admitted for cellulitis. Cellulitis: -Tmax 38.5, tachycardic, hypotensive on arrival. -Physical exam with cellulitis without fluctuance. -WBC 9.75 w/ increased neutrophil count. -Lactate 4.9, repeat 3.2. Procal 25.60, creat 1.50 (baseline unknown). -CT chest w/ evidence for cellulitis extending to myositis, w/o soft tissue gas. -Given Cefepime and vancomycin in ER with red man syndrome reaction. -Will switch to daptomycin q24h, continue cefepime 2g q8h, and add clindamycin 600mg q8h. -Received 1L NSS in ER, continue mIVF w/ NSS@125ml/hr. -Tylenol PRN for pain and fever, Zofran PRN nausea. -Will obtain echo for possible source as well as HIV. -Trend daily CBC and renal function. Infected Urinalysis: -U/A with protein, blood, WBC, Bacteria, epithelial cells. -No urinary symptoms, may be acute cystitis vs contaminant. -On broad spectrum abx coverage. -Can obtain repeat U/A in 4-5 days to check for resolution of proteinuria and hematuria. Hyponatremia: -Na 126 on arrival. -Patient with emesis [id number], likely related. -Will obtain urine Na, urine osm, serum osm with AM CMP. -On NSS@80ml/hr F/E/N/GI: Regular diet. DVT PPx: Heparin SQ q12h Code: Full Dispo:PCU History of Present Illness Chief Complaint: Left axilla pain Primary Care Provider: Stanislaw Pacheco MD Uri is a 43 year old male with no discernable past medical history coming in for left axilla pain x2 days. Patient states that he had developed soreness below the L armpit around 2 days ago and developed fevers up to 103 and 104 to go with it. He had nausea and vomiting during the first 24 hours as well as some diarrhea. He noticed he had some pain when taking a deep breath. Him and his went to urgent care yesterday but conservative treatment was advised. The area below the armpit became more red and swollen and so he decided to come to the ER to be evaluated. Their son had a recent upper respiratory infection with sore throat earlier in the week. Patient has not history of previous skin or soft tissue infection. Patient is not a smoker. Patient denies chest pain or urinary symptoms. Patient states he had an accident a year or so ago which caused a spinal compression fracture and he was treated nonsurgically at the time without issue. The pain does not go to the midline spine and is more focused at the left axilla and anterior chest. In the ER CBC unremarkable except for Neutrophil count of 9.15. CMP showed Na 126, creatinine 1.50, lactate of 4.9 followed by 3.2, T. bili 1.9, D bili 0.6, procal 25.60. UA with blood, protein, WBC, bacteria, epithelial cells. Viral PCR negative. CXR negative for cardiopulmonary findings, CT chest w/ extensive inflammation w/in L lower neck, supraclavicular region, L axilla and chest wall extending into mediastinum; etiology not clear, findings favor extensive infectious process with cellulitis; no soft tissue gas, infectious fasciitis cannot be excluded; associated asymmetric enlargement of multiple left sided muscles could represent infectious myositis. Allergies Allergy/AdvReac Type Severity Reaction Status Date / Time amoxicillin Allergy Unknown HAPPENED Verified 12/12/23 08:10 AN Penicillins Allergy Unknown HAPPENED Verified 12/12/23 08:10 AN Home Medications Medication Instructions Recorded Confirmed Type ondansetron 8 mg disintegrating 8 mg PO TID PRN Nausea And Vomiting 12/12/23 12/12/23 History tablet Past Med/Surg History Medical History No pertinent past medical history No pertinent family history Surgical History No pertinent past surgical history Social History Smoking Status: Never smoker Preferred Language: Slovenian Feels Safe at Home: Yes Review of Systems Review of Systems: As per HPI. Physical Exam Constitutional: WD/WN, vitals as above Eyes: PERRL, conjunctivae normal, anicteric sclerae ENMT: erythema of posterior oropharynx without swelling. Respiratory: normal respiratory effort, lungs clear to auscultation Cardiovascular: RRR, no murmur, no edema Chest (Breasts): Additional Comments: Normal appearance aside from erythema on anterior chest. Gastrointestinal (Abdomen): normal bowel sounds, soft, nontender, no hepatosplenomegaly Skin: Area of swelling and erythema without fluctuance of papules around 6-7cm in diameter at the L axilla. Pain elicited with palpation at the left axilla. scattered pinpoints of erythema on upper extremities and chest. Psychiatric: A+Ox3, euthymic affect Lymphatic: No increased cervical or axillary lymphadenopathy noted bilaterally. Results & Data Results & Data Vital Signs (Past 12 Hours) Vital Signs Temp Pulse Pulse Resp BP BP Pulse Ox 12/12/23 08:30 97 H 23 96/72 L 96 12/12/23 08:21 100 H 13 111/71 97 12/12/23 08:00 98 H 19 106/58 L 96 12/12/23 07:30 103 H 23 110/71 96 12/12/23 07:28 37.5 C 12/12/23 07:15 105 H 24 121/77 98 12/12/23 07:05 110 H 17 113/71 96 12/12/23 05:46 12/12/23 05:46 38.6 C H 118 H 28 H 120/80 97 12/12/23 05:29 115 H 12/12/23 05:09 36.9 C 132 H 18 90/65 L 98 O2 Del Method 12/12/23 08:30 Room Air 12/12/23 08:21 Room Air 12/12/23 08:00 Room Air 12/12/23 07:30 Room Air 12/12/23 07:28 12/12/23 07:15 Room Air 12/12/23 07:05 Room Air 12/12/23 05:46 Room Air 12/12/23 05:46 12/12/23 05:29 12/12/23 05:09 Room Air Supervising Physician Co-Signing Physician Notes Attending Physician Supervision Note: I independently interviewed and examined the patient and verified the de paz history and physical, reviewed labs and image studies and agree with findings and care plan noted above. left axilla pain x2 days. developed soreness below the L armpit 2 days ago and developed fevers up to 103 and 104. nausea and vomiting during the first 24 hours and some loose stools. Son had URI recently. No h/o trauma. vitals noted nad heent nc at mmm breathing unlabored no accessory muscles good effort skin no rashes no pallor or icterus neuro no focal deficits. in distress and worried, left shoulder/neck/left upper chest extending into the axilla area with fullness and redness. pain with any movement. Severe Sepsis d/t Infectious soft tissue infection, myositis and cellulitis left shoulder and arm- predisposing factor could be aggressive exercise. no h/o injury. not immunosuppressed. -s/p 3L IVF. Systolic BP improved but still tachycardic. Febrile, WBC normal. -started on cefepime and vancomycin in ED. Add clindamycin. -Follow cultures -Shouldn't have concern of compartment syndrome considering the location -surgical phone consult done with physician retail zone specialist - recommend continuing current treatment. -check TTE in am. consider KIMO once hemodynamically stable. MICHEAL - sec to Sepsis. IV hydration and management as above. Hypontremia - likely from acute infectious process Abnormal UA - cultures sent. Abx as above Low risk for DVT Resident Activity Tracking Resident Involvement: Resident Care Provided Care Provided: [facility]
[2023-12-12] MEDS: CLINDAMYCIN/D5W 600 MG/50 ML BAG IV ONE (09:31)
[2023-12-12] MEDS: KETOROLAC TROMETHAMINE 15 MG/ML VIAL IV ONE (12:37)
[2023-12-12] MEDS: PLASMA-LYTE A 500 ML IV ONE (15:20)
[2023-12-12] MEDS ORDERED: ACETAMINOPHEN 325 MG TAB PO PRN (15:36)
[2023-12-12] MEDS ORDERED: POLYETHYLENE (MIRALAX) 17 GM PACK PO PRN (15:36)
[2023-12-12 15:48] LABS: BUN Creatinine Ratio 22.2 (10-20); Calcium 7.7 mg/dl (8.6-10.3); Est GFR (African American) 80.4 ml/min; Est GFR (Non-African American) 69.4 ml/min; Potassium 3.5 mmol/L (3.5-5.1)
[2023-12-12] MEDS: NSS + 20MEQ KCL 20 MEQ/1,000 ML BAG IV SCH (16:27)
[2023-12-12] MEDS: PLASMA-LYTE A 1,000 ML IV SCH (16:27)
[2023-12-12] MEDS: CEFEPIME 2,000 MG in SYRINGE 0 ML IV SCH (16:28)
[2023-12-12] MEDS: CEFEPIME 2,000 MG/20 ML VIAL ONE (16:28)
--- NOTE | 2023-12-12 16:55 | Electrocardiogram Report ---
Test Reason : Blood Pressure : / mmHG Vent. Rate : 113 BPM Atrial Rate : 113 BPM P-R Int : 158 ms QRS Dur : 096 ms QT Int : 318 ms P-R-T Axes : 053 059 -34 degrees QTc Int : 436 ms Sinus tachycardia Possible Left atrial enlargement T wave abnormality, consider inferior ischemia Abnormal ECG No previous ECGs available Confirmed by Uri Gallegos ([id number]) on 12/12/2023 4:55:02 PM Referred By: REFERRED SELF Confirmed By:Elias Gallegos
[2023-12-12] MEDS: CLINDAMYCIN/D5W 600 MG/50 ML BAG IV SCH (18:09)
[2023-12-12] MEDS: ACETAMINOPHEN 325 MG TAB PO SCH (18:09)
[2023-12-12] MEDS: DAPTOmycin 300 MG in SYRINGE 0 ML IV SCH (18:27)
[2023-12-12 18:46] LABS: A calco-baum cmplx NotReported Not Detected (NotDetected); Bact fragilis Not Reported Not Detected (NotDetected); Blood Culture Id Panel See PCR Comment (NotDetected); C auris Not Reported Not Detected (NotDetected); Calbicans Not Reported Not Detected (NotDetected); Candida glabrata Not Reported Not Detected (NotDetected); Candida krusei Not Reported Not Detected (NotDetected); Cneoformans/gatti Not Reported Not Detected (NotDetected); Cparapsilosis Not Reported Not Detected (NotDetected); E cloacae compx Not Reported Not Detected (NotDetected); Efaecalis Not Reported Not Detected (NotDetected); Efaecium Not Reported Not Detected (NotDetected); Enterobacterales Not Reported Not Detected (NotDetected); Escherichia coli Not Reported Not Detected (NotDetected); H influenzae Not Reported Not Detected (NotDetected); K aerogenes Not Reported Not Detected (NotDetected); Koxytoca Not Reported Not Detected (NotDetected); Kpneumoniae grp Not Reported Not Detected (NotDetected); Lmonocyt Not Reported Not Detected (NotDetected); N meningitidis Not Reported Not Detected (NotDetected); P aeruginosa Not Reported Not Detected (NotDetected); Proteus spp Not Reported Not Detected (NotDetected); Salmonella spp Not Reported Not Detected (NotDetected); Smarcescens Not Reported Not Detected (NotDetected); Staph lugdunensis Not Reported Not Detected (NotDetected); Staph spp. Not Reported Not Detected (NotDetected); Staphaureus Not Reported Not Detected (NotDetected); Staphepi Not Reported Not Detected (NotDetected); Stenmaltophilia Not Reported Not Detected (NotDetected); Strep agal(GrpB) Not Reported Not Detected (NotDetected); Strep pneum Not Reported Not Detected (NotDetected); Strep pyog (GrpA) Not Reported DETECTED (NotDetected); Strep spp Not Reported DETECTED (NotDetected)
[2023-12-12 19:46] LABS: Streptococcus pyogenes (GrpA) DETECTED (NotDetected); Streptococcus spp DETECTED (NotDetected)
[2023-12-12] MEDS: HEPARIN SOD 5,000 UNIT/0.5 ML VIAL SQ SCH (22:50)
--- NOTE | 2023-12-13 06:53 | Hospitalist Progress Note ---
Date of Service December 13, 2023 Assessment & Plan (1) Cellulitis of arm, left: Plan: 43 year old male admitted for management of moderate to severe sepsis and likely lymphangitis. Lymphangitis: SIRs criteria - febrile, tachypneic, tachycardia, hypotension. CT chest with evidence of cellulitis vs lymphangitis. CT C-Spine without signs of abscess. Patient with red man reaction to vanc. Now on cefepime, daptomycin, and clindamycin. Blood cultures growing gram positive GAS. f/u blood cx sensitivities continue abx as is for now - cefepime, daptomycin, and clindamycin (started 12/12) continue fluid resuscitation and maintenance IVF @ 125mL/hr as patient with continued tachycardia Tylenol 650 mg scheduled Q4H HIV pending ECHO pending repeat blood cultures Infected Urinalysis: U/A with protein, blood, WBC, bacteria, epithelial cells. No urinary symptoms, may be acute cystitis vs contaminant. -On broad spectrum abx coverage. -Can obtain repeat U/A in 4-5 days to check for resolution of proteinuria and hematuria. Hyponatremia: Na 126 on arrival. Improving. Patient with emesis [id number], likely related. F/E/N/GI: Regular diet. DVT PPx: Heparin SQ q12h Code: Full Dispo: PCU Admission and Anticipated Discharge Date Admission Date: December 12, 2023 Supervising Physician Co-Signing Physician Notes I personally examined the patient and verified all de paz points of history and exam, discussed case, and agree with decision making with Dr Teixeira Feeling very fatigued. Left axilla pain probably slightly betterstill feels a good bit of pain but notes that his range of motion is improved. Pain across his chest as wella "twinge" does not seem to be worsening. Vitals noted, in general he is in no distress although he does appear quite fatigued. HEENT normocephalic atraumatic mucous membranes moist. Breathing is unlabored no accessory muscle use good effort. Skin shows erythema that appears to be somewhat deep in his axilla and down his left flank immediately distal to his axillafortunately no crepitus it is really not that tender and I can feel no discrete fluctuant areas. Severe sepsisstrepI suspect lymphangitis and subsequent secondary bacteremia is the main cause; have to assume infectious myositis, but may also be reactive inflammation given that the bulk of the lymphangitis is right next to the potentially involved musclesat this point the difference is largely immaterial given that we need to continue antibiotic coveragecontinue broad pending sensitivities. Echocardiogram reassuring, CT C-spine reassuring, follow-up blood cultures were sent this morning. Will ask infectious disease to see by tomorrow. No surgical interventions appear to be warranted. I suspect he will get better with antibiotics, supportive care, and time. MICHEAL - sec to Sepsis. Improving with IV fluids Hypontremia - improving DVT proph - heparin SQ otherwise as above Subjective Patient with continued fevers, arm swelling/pain, exhaustion. Has improved since prior to admission, but still feels poorly. Does have more range of motion in the left shoulder. Review of Systems 2 Review of Systems: as per HPI Physical Exam 2 Physical Exam: Gen: ill and fatigued appearing male with an elevated respiratory rate HEENT: AT NC MMM Resp: CTAB no wheezing, no increased work of breathing CV: tachycardic, no m/r/g clinically well perfused, no edema Abd: non-distended Skin area of swelling and erythema at the left axilla, left flank and left upper arm, tender to palpation in the axilla, decreased range of motion, generally reddened skin, swelling and pain in the left neck as well Psych: appropriate mood and affect Neuro: alert and oriented Results & Data Results & Data Laboratory Results 12/13/23 06:12 12/13/23 06:[address] OF THE CHEST WITH IV CONTRAST FINDINGS: Note is made of extensive fluid and stranding within the left lower neck, supraclavicular region, left axillar and left chest wall. This extends into the left superior mediastinum. Multiple mildly enlarged lymph nodes are probably reactive. A left level 4 cervical lymph node on image 17 of 273 measures 2 x 0.8 cm. A left axillary node measures 1.3 x 1.3 cm. There is asymmetric enlargement of the left pectoralis major and minor muscles as well as the left shoulder and left lower cervical musculature. This also involves the lateral chest wall musculature. No soft tissue gas. No rim-enhancing fluid collection is present. Size of the heart is normal. There is no pericardial effusion. Trace left pleural effusion is present. There is no consolidation to suggest pneumonia. No areas of bony destruction are present. Visualized portions of the upper abdomen demonstrate mild splenomegaly. There is possible hepatic steatosis. Mild symmetric bilateral perinephric stranding. IMPRESSION: 1. Extensive inflammation within the left lower neck, supraclavicular region, left axilla and chest wall, extending into the mediastinum. The etiology is not clear however the findings favor an extensive infectious process with cellulitis. Although no soft tissue gas, infectious fasciitis cannot be excluded. Associated asymmetric enlargement of multiple left-sided muscles, as described above, could represent an infectious myositis. No soft tissue gas. No rim-enhancing fluid collections. 2. Left lower cervical and axillary lymphadenopathy, likely reactive. 3. Trace left pleural effusion. 4. Mild splenomegaly. Chest X-Ray 12/13/23 11:19 FINDINGS: Left-sided chest wall soft tissue thickening again noted. This is similar to the prior study. There is a small left and trace right pleural effusion. These have slightly progressed. No pneumothorax. The heart is mildly enlarged. No focal lung consolidations to suggest a pneumonia. There is mild central pulmonary vascular congestion without overt edema. No acute fractures identified. IMPRESSION: 1. Left chest wall soft tissue swelling again noted 2. Mild cardiomegaly, mild congestive change, and bilateral pleural effusions have slightly progressed. Cervical Spine CT 12/13/23 11:30 FINDINGS: There is an old, healed left C7 transverse process fracture. No acute fractures. No subluxation. Prevertebral soft tissues and the C1-C2 interval are intact. No pneumothorax. Left lower neck soft tissue edema is again noted and better appreciated on the recent chest CT. No loculated fluid collections on this noncontrast study to suggest an abscess. The prevertebral soft tissues appear intact. Evaluation for an epidural abnormality is essentially nondiagnostic by CT. Mild left lower cervical lymphadenopathy is again noted. IMPRESSION: 1. No acute fractures within the cervical spine. 2. Redemonstration of the left lower neck soft tissue edema with mild left lower cervical lymphadenopathy. This is similar to the prior CT examination. This could represent an infectious or inflammatory process. 3. The prevertebral soft tissues are intact. 4. No CT evidence for discitis/osteomyelitis within the cervical spine. Resident Activity Tracking Resident Involvement: Resident Care Provided Care Provided: [facility]
[2023-12-13 07:40] LABS: Bilirubin,Total 1.3 mg/dl (0.2-1.0); Calcium 7.7 mg/dl (8.6-10.3); Creatinine Clr Calc Pharmacy 102.8 ml/min; Globulin 2.7 gm/dl (2.5-4.0)
[2023-12-13 07:47] LABS: Basophils # (auto) 0.01 K/uL (0.00-0.20); Basophils % (auto) 0.1 %; Dohle Bodies 1+; Echinocytes 1+; Eosinophils % (auto) 2.5 %; Hematocrit (blood only) 38.1 % (42.0-52.0); Hemoglobin 13.1 g/dl (14.0-18.0); Immature Granulocytes # (auto) 0.19 K/uL (0.01-0.20); Immature Granulocytes % (auto) 2.4 %; Lymphocytes % (auto) 2.5 %; Mean Corpuscular Hemoglobin 29.4 pg (25.0-34.0); Mean Corpuscular Hgb Conc 34.4 g/dL (32.0-36.0); Mean Corpuscular Volume 85.6 fL (80.0-100.0); Mean Platelet Volume 10.5 fL (9.4-12.4); Monocytes # (auto) 0.22 K/uL (0.11-0.59); Monocytes % (auto) 2.7 %; Neutrophils # (auto) 7.21 K/uL (1.40-6.50); Neutrophils % (auto) 89.8 %; Platelet Count 117 K/uL (130-400); Polychromasia 1+; RDW Coefficient of Variation 12.9 % (11.5-14.5); RDW Standard Deviation 39.9 fL (36.4-46.3); Red Blood Count 4.45 M/uL (4.70-6.10); White Blood Count 8.03 K/ul (4.8-10.8)
--- NOTE | 2023-12-13 12:28 | CT Scan Report ---
CERVICAL SPINE CT CT DOSE: HISTORY: Neck pain. Abnormal chest CT with lower neck inflammatory change. r/o abscess TECHNIQUE: Multiaxial CT images of the cervical spine were performed and reformatted in the sagittal and coronal plane without the use of contrast. A dose lowering technique was utilized adhering to th e principles of ALARA. COMPARISON: Cervical spine CT 03/13/2023. FINDINGS: There is an old, healed left C7 transverse process fracture. No acute fractures. No subluxa tion. Prevertebral soft tissues and the C1-C2 interval are intact. No pneumothorax. Left lower neck s oft tissue edema is again noted and better appreciated on the recent chest CT. No loculated fluid col lections on this noncontrast study to suggest an abscess. The prevertebral soft tissues appear intact . Evaluation for an epidural abnormality is essentially nondiagnostic by CT. Mild left lower cervical lymphadenopathy is again noted. IMPRESSION: 1. No acute fractures within the cervical spine. 2. Redemonstration of the left lower neck soft tissue edema with mild left lower cervical lymphadenop athy. This is similar to the prior CT examination. This could represent an infectious or inflammatory process. 3. The prevertebral soft tissues are intact. 4. No CT evidence for discitis/osteomyelitis within the cervical spine. ACT 112: Negative or not required by law. Electronically signed by: Keshawn Johnson M.D. 12/13/2023 12:26 PM
--- NOTE | 2023-12-13 14:14 | XRay Report ---
XR chest 2V PA/lateral HISTORY: Inspiratory chest pain. COMPARISON: Chest CT 12/12/2023. FINDINGS: Left-sided chest wall soft tissue thickening again noted. This is similar to the prior stud y. There is a small left and trace right pleural effusion. These have slightly progressed. No pneumot horax. The heart is mildly enlarged. No focal lung consolidations to suggest a pneumonia. There is mi ld central pulmonary vascular congestion without overt edema. No acute fractures identified. IMPRESSION: 1. Left chest wall soft tissue swelling again noted 2. Mild cardiomegaly, mild congestive change, and bilateral pleural effusions have slightly progresse d. ACT 112: Negative or not required by law. Electronically signed by: Keshawn Johnson M.D. 12/13/2023 2:12 PM
[2023-12-13] MEDS: LACTATED RINGER'S 1,000 ML IV ONE ×2 (15:08→18:10)
--- NOTE | 2023-12-13 16:53 | XCELERA ---
[id number]
[2023-12-13] MEDS: LACTATED RINGER'S 1,000 ML IV SCH (19:13)
--- NOTE | 2023-12-13 19:35 | Billing Data ---
Date of Service December 13, 2023 Coding Level of Care Code 21337 SUB INP/OBS CARE MIN
[2023-12-14 00:20] LABS: Albumin Level 2.8 gm/dl (3.4-5.0); BUN Creatinine Ratio 21.8 (10-20); Est GFR (African American) 94.8 ml/min; Est GFR (Non-African American) 81.8 ml/min; Potassium 3.6 mmol/L (3.5-5.1); Total Protein 5.5 gm/dl (6.0-8.3)
[2023-12-14] MEDS: KETOROLAC TROMETHAMINE 15 MG/ML VIAL IV PRN (02:38)
--- NOTE | 2023-12-14 06:32 | Hospitalist Progress Note ---
Date of Service December 14, 2023 Assessment & Plan (1) Cellulitis of arm, left: Plan: 43 year old male admitted for management of moderate to severe sepsis and likely lymphangitis. Lymphangitis; SIRS SIRs criteria - febrile, tachypneic, tachycardia, hypotension. CT chest with evidence of cellulitis vs lymphangitis. CT C-Spine without signs of abscess. Patient with red man reaction to vanc. Now on cefepime, daptomycin, and clindamycin. Blood cultures growing pansensitive gram positive GAS. Repeat cx NGTD x24H. TTE negative for vegetations. HIV negative. ID rec penicillin challenge - allergy consulted will do this on an outpatient basis and avoid penicillins for now. Repeat CT Chest largely unchanged. Surgery on board - rec repeat imaging later in the week, hold off on surgery for now. Blood culture 12/12 - GAS bacteremia, pansensitive Blood cultures 12/13 NGTD x 24H Antibiotics Cefepime, daptomycin, and clindamycin (anti-toxin) start 12/12 Added metronidazole 12/14 Continue maintenance IVF @ 125mL/hr Tylenol 650 mg scheduled Q4H Surg and ID on board - appreciate recs Allergy to f/u outpatient for penicillin challenge Infected Urinalysis: U/A with protein, blood, WBC, bacteria, epithelial cells. No urinary symptoms, may be acute cystitis vs contaminant. Current abx will cover regardless. Repeat UA outpatient as there was proteinuria and hematuria. Hyponatremia: Na 126 on arrival. Improving. Patient with emesis [id number], likely related. F/E/N/GI: Regular diet. DVT PPx: Heparin SQ q12h Code: Full Dispo: PCU Admission and Anticipated Discharge Date Admission Date: December 12, 2023 Supervising Physician Co-Signing Physician Notes I personally examined the patient and verified all de paz points of history and exam, discussed case, and agree with decision making with Dr Teixeira Feeling better overall. Still somewhat fatigued but improved. Appetite improving. Pain much better. Does have a bit more swelling down the side and back, chest and shoulder and armpit pain all better. Range of motion in his armpit has improved a good bit as well. Revisited 3 separate times today, continue to look somewhere between the same or progressively better throughout the day. Does have a little bit of a cough, no significant shortness of breath. Vitals noted, in general he is in no distress and mildly fatigued. HEENT normocephalic atraumatic mucous membranes moist. Breathing is unlabored no accessory muscle use good effort. Erythema far more patchy and dull than yesterday, it has expanded down his left flank some, but seems to be tracking along the fascial plane particularly given that it is more blotchy and less red. Nontender even to deep palpation, across his neck, shoulder,'s flank and chest. No crepitus. Neuro shows cranial nerves II through XII are grossly intact gross motor and sensory intact Severe sepsisstrepI suspect lymphangitis and subsequent secondary bacteremia is the main cause; have to assume infectious myositis, but may also be reactive inflammation given that the bulk of the lymphangitis is right next to the potentially involved muscles clinically does appear to be improving nicely. Mediastinitis seems to mostly be extension of lymphangitis at this point - ongoing abx. Obviously ongoing vigilance. His CT scan repeat today did show worsening of soft tissue edemabut given how reassuring his exam is, I suspect this is now reactive/residual inflammation tracking along fascial planes. His white count did go up some, but his procalcitonin has dropped precipitously (I also checked a CRP to be able to start to trend that as well). In discussion with radiology, his mediastinal inflammation appears unchanged/definitely not worse/nothing that appears to be a localized abscess. Discussed with general surgery and input appreciated as well. Infectious disease input appreciatedcontinue with broad antibiotics given that he is showing strep, but high possibility of polymicrobial, obviously continuing clindamycin for antitoxin effect as well. MICHEAL - sec to Sepsis. Improved. Hypontremia - ongoing improvement DVT proph - heparin SQ otherwise as above Subjective Patient with clinical improvement over the last 24 hours. Continued exhaustion and swelling. Does have some pain with deep inspiration and a developing cough. Redness has spread, but lessened. Review of Systems 2 Review of Systems: as per HPI Physical Exam 2 Physical Exam: Gen: fatigued appearing male in NAD HEENT: AT NC MMM Resp: CTAB no wheezing, no increased work of breathing, respiratory rate has slowed to a normal rate CV: RRR, no m/r/g clinically well perfused, no edema Abd: non-distended Skin area of swelling and erythema at the left axilla, left lateral abdomen, and left upper arm. Erythema has spread but decreased in tenderness and intensity, left neck pain and swelling has improved significantly Psych: appropriate mood and affect Neuro: alert and oriented Results & Data Results & Data Vital Signs (Past 12 Hours) Vital Signs Temp Pulse Pulse Resp BP Pulse Ox O2 Del Method 12/14/23 02:34 37.2 C 114 H 16 125/74 93 Room Air 12/13/23 23:01 103 H 12/13/23 23:00 37.1 C 102 H 16 118/73 94 Room Air 12/13/23 20:15 37.9 C H 12/13/23 19:44 38.3 C H 115 H 16 122/69 95 Room Air Laboratory Results 12/14/23 07:23 12/14/23 07:[address] 12/14/23 09:30 FINDINGS: Thyroid: Imaged portions of the thyroid gland are normal in size and attenuation. Thoracic aorta: The thoracic aorta is normal in caliber and demonstrates standard 3-vessel arch anatomy. No dissection is seen. Pulmonary vasculature: The pulmonary trunk is normal in caliber. There are no filling defects identified in the central pulmonary vessels to indicate pulmonary embolus. Note that this examination was not protocoled for evaluation of the pulmonary arteries. Heart: The heart is normal in size and without pericardial effusion. Lungs and pleural spaces: Evaluation of the lung parenchyma is significantly degraded by motion artifact. There is a small left pleural effusion with dependent consolidation. This has increased from previous. A trace right pleural effusion is new from 12/12/2023. There is dependent atelectasis in the right lung base. The upper lobe lung parenchyma appears clear. The trachea and central airways are patent. Lower neck: There are numerous prominent left supraclavicular nodes which measure up to 11 mm in short axis. Mediastinum: There is mild infiltration throughout the mediastinum, greatest superiorly and in the prevascular space. There are prominent subcentimeter mediastinal lymph nodes. Angelina: Clear. Axillae: There are mildly enlarged left axillary and subpectoral lymph nodes which measure up to 12 mm in short axis. No right axillary lymphadenopathy is identified. Upper abdomen: A small hiatal hernia is noted. The liver appears steatotic. Skeletal structures: No lytic or blastic bony lesions are seen. Soft tissues: Again seen is significant superficial and deep inflammation and fluid involving the soft tissues in the left lower neck, the left chest wall, and extending into the left flank/upper abdomen. This has modestly increased from previous, as there is now mild inflammation in the right anterior upper chest wall which was not seen on 12/12/2023. No soft tissue gas is identified. There is no organized fluid collection to suggest abscess. There is mild edema within the pectoralis and chest wall musculature suggesting myositis. The left axillary vessels appear patent. IMPRESSION: 1. Significantly motion compromised examination. 2. Again seen is extensive inflammatory change and fluid within the superficial and deep soft tissues of the left lower neck, axilla, chest wall, and left flank. This has somewhat increased from 12/12/2023, with inflammatory change now seen in the right anterior/upper chest wall. This is pathologically indeterminant, and almost certainly infectious in etiology. This likely represents cellulitis. A fasciitis is not excluded. No soft tissue gas is seen and no organized/drainable fluid collection is identified. 3. Inflammation extends into the mediastinum, likely representing mediastinitis. There is also myositis of the left chest wall musculature. 4. Mildly enlarged left supraclavicular, axillary, and mediastinal lymph nodes are likely reactive. 5. Left larger than right pleural effusions with dependent consolidation. These have increased in size from previous. 6. Mild splenomegaly. 7. Additional findings as above. Resident Activity Tracking Resident Involvement: Resident Care Provided Care Provided: Adult [facility] Medicine
[2023-12-14 08:02] LABS: Hematocrit (blood only) 32.7 % (42.0-52.0); Hemoglobin 11.8 g/dl (14.0-18.0); Mean Corpuscular Hemoglobin 29.9 pg (25.0-34.0); Mean Corpuscular Hgb Conc 36.1 g/dL (32.0-36.0); Mean Corpuscular Volume 82.8 fL (80.0-100.0); Mean Platelet Volume 10.2 fL (9.4-12.4); Platelet Count 131 K/uL (130-400); RDW Coefficient of Variation 12.8 % (11.5-14.5); RDW Standard Deviation 38.8 fL (36.4-46.3); Red Blood Count 3.95 M/uL (4.70-6.10); White Blood Count 14.92 K/ul (4.8-10.8)
[2023-12-14 08:03] LABS: Basophils # (auto) 0.11 K/uL (0.00-0.20); Basophils % (auto) 0.7 %; Dohle Bodies 3+; Eosinophils # (auto) 0.41 K/uL (0.00-0.50); Eosinophils % (auto) 2.7 %; Immature Granulocytes # (auto) 1.22 K/uL (0.01-0.20); Immature Granulocytes % (auto) 8.2 %; Lymphocytes # (auto) 0.84 K/uL (1.20-3.40); Lymphocytes % (auto) 5.6 %; Monocytes # (auto) 0.53 K/uL (0.11-0.59); Monocytes % (auto) 3.6 %; Neutrophils # (auto) 11.81 K/uL (1.40-6.50); Neutrophils % (auto) 79.2 %; Toxic Granulation 2+; Toxic Vacuolation 2+
[2023-12-14 08:15] LABS: Albumin Level 2.6 gm/dl (3.4-5.0); BUN Creatinine Ratio 22.7 (10-20); Bilirubin,Total 1.2 mg/dl (0.2-1.0); Calcium 7.9 mg/dl (8.6-10.3); Creatinine Clr Calc Pharmacy 156.7 ml/min; Est GFR (African American) 130.2 ml/min; Est GFR (Non-African American) 112.4 ml/min; Globulin 2.7 gm/dl (2.5-4.0); Potassium 3.1 mmol/L (3.5-5.1); Total Protein 5.3 gm/dl (6.0-8.3)
--- NOTE | 2023-12-14 10:08 | Infectious Disease Consult ---
Date of Consultation December 14, 2023 Assessment & Plan (1) Group A streptococcal infection: (2) Necrotizing fasciitis due to Streptococcus pyogenes: (3) Acute mediastinitis: (4) Streptococcal bacteremia: Plan Uri Barrientos is a 43-year-old man with no significant PMH who presents to [facility] on 12/12/23 with left axillary pain, redness, swelling, and fevers, with CT chest showing extensive inflammation in L neck, supraclavicular region, L axilla, chest wall, and with extension into mediastinum. Found to have GAS bacteremia. ID is consulted for L axillary and chest wall SSTI c/f NSTI, mediastinitis, and GAS bacteremia. Imaging is highly concerning for invasive GAS infection, SSTI with c/f necrotizing soft tissue infection (NSTI). CT also concerning given extension into mediastinum, consistent with mediastinitis. Also with GAS bacteremia, thus far repeat BCx from 12/13 are NGTD and 12/13 TTE without evidence of valvular vegetations. Appears to have started in L axillary region, rather than pharyngeal source although spread into mediastinum is similar to deep neck space infection; concern that necrotizing mediastinitis can rapidly spread. Pt reports that his L trunk/flank area is becoming more red and indurated. Would recommend repeat CT imaging to reevaluate mediastinum, chest wall, L trunk, and reevaluate pleural effusions from CXR. Patient also with worsening cough and increasing leukocytosis. Pt with hypotension to 80s/50s in the ED though improved with resuscitation. Also with signs of multiorgan involvement including MICHEAL, worsening plt count, and mildly elevated bilirubin. Together, these could indicative a component of possible GAS-related toxic shock syndrome. Also with pyuria and mild perinephric stranding b/l on CT, UA also with granular casts. Although GAS likely driving pathogen, given spreading infection for now, would continue broad therapy with daptomycin, cefepime, metronidazole, and clindamycin (anti-toxin). Of note, pts penicillin reaction (rash when baby) is unlikely to be severe and pt very likely to tolerate penicillin per PEN-FAST. Will discuss with pharmacy about possible penicillin challenge, perhaps can change to linezolid/Unasyn in coming days to target GAS while maintaining anti-toxin effect. ID Problem List: 1.L axillary and L chest wall SSTI c/f NSTI, mediastinitis 2.GAS bacteremia with c/f GAS-related toxic shock syndrome 3.Acute kidney injury Recommendations: - Continue broad-spectrum antimicrobial therapy with daptomycin, cefepime, and clindamycin (anti-toxin). Will add metronidazole. ---Will discuss with pharmacy about possible penicillin challenge, perhaps can change to linezolid/Unasyn in coming days to target GAS while maintaining anti- toxin effect - Would involve surgery given c/f NSTI and mediastinitis - Would recommend repeat CT imaging to reevaluate mediastinum, chest wall, L trunk, and reevaluate pleural effusions from CXR. If any increased effusions and worsening mediastinitis would consider thoracentesis and/or thoracic surgery evaluation. - Have demarcated area on L trunk/flank to monitor carefully for spread. ID will continue to follow. Juanita Nicholson MD, S Infectious Diseases [facility] direct line: [phone] Consultation Information Consultation was provided via telemedicine using two-way real-time interactive telecommunication between the patient and the telemedicine provider. For the duration of the visit, the provider was performing the assessment from a different facility than the patient. This includesuse of bluetooth stethoscope forauscultationperformed by the telepresenter that the telemedicine provider can hear if described in the physical exam. Pediatric Pathologist contact information: Please call [facility] Call Center . (Phone Number For Physician Use Only) After establishing a telemedicine visit, patient was: Patient was verified with two unique identifiers, Patient/authorized rep acknowledged consent and understanding and Gave permission to continue telehealth session Time Spent with Patient: Initial => 75 min History of Present Illness Reason for Consultation: L axillary and chest wall SSTI c/f NSTI, mediastinitis, and GAS bacteremia. Attending Physician: Pato Kline DO History of Present Illness Uri Barrientos is a 43-year-old man with no significant PMH who presents to [facility] on 12/12/23 with left axillary pain, redness, swelling, and fevers, with CT chest showing extensive inflammation in L neck, supraclavicular region, L axilla, chest wall, and with extension into mediastinum. Found to have GAS bacteremia. ID is consulted for L axillary and chest wall SSTI c/f NSTI, mediastinitis, and GAS bacteremia. Patient developed soreness below the L armpit around 12/09 which progressed to swelling of the neck, armpit, and pec area on 12/10 and Sat 12/11. He had nausea and vomiting during the first 24 hours as well as some diarrhea. He noticed he had some pain when taking deep breaths. Him and his went to urgent care on 12/11 (tested for mono, flu, Covid) and no abx were started. He later developed fevers up to 103F-104F. The area below the armpit became more red and swollen, to the point he was unable to move his arm and so he decided to come to the [facility] ED on 12/12 to be evaluated. The pt also reported that he had an accident a year or so ago which caused a spinal compression fracture and he was treated nonsurgically at the time without issue. The pain does not go to the mid line spine and is more focused at the left axilla and anterior chest. Of note, a few days before, the pt developed a cut on his L medial index finger when he opened a can. He reports this was a superficial and clean cut. He reports that his tetanus booster is up to date as he works in construction (chart review: Tdap 03/2023). The patient then cleaned the gutters out on 12/09 and got a lot of dirt in the cut in the L finger. He said then L finger then became very infected looking with a swelling and a lot of pus, so he started soaking the L finger and cleaning it. He reports the L finger since resolved. Pt without recent pharyngitis symptoms, has not been recently sick. No joint pain. Pt with hx of ACL repair in R knee and has hardware in the knee; no other hardware/valves. Their son had a recent upper respiratory infection with sore throat earlier in the week, which self-resolved in ~2 days. He reports a reaction to penicillin, reported to be a rash when he was a baby. N o other known abx allergies though reports sensitive skin to soap/lotion. In the ED, febrile to TMax 38.8. Hypotensive to 80s/50s which improved to 110s/70s. WBC 9.75. Na 126 Cr 1.50 lactate 4.9 -> 3.2, tbili 1.9, dibili 0.6. UA with 10-30 WBCs, 0-4 RBCs, >30 epis, 1-[address] chest w/ extensive inflammation w/in L lower neck, supraclavicular region, L axilla and chest wall extending into mediastinum; etiology not clear, findings favor extensive infectious process with cellulitis; no soft tissue gas, infectious fasciitis cannot be excluded; associated asymmetric enlargement of multiple left sided muscles could represent infectious myositis. Initially received IV vancomycin and became red (felt to be red man vancomycin infusion reaction), changed to daptomycin, and also received cefepime and clindamycin. At the time of evaluation, pt reports that his L trunk/flank area is becoming more red and indurated. Still with some redness of his face/skin (he thinks could be from vancomycin still) but also more red on his bilateral palms. Started having more chest discomfort resulting in shallow breathing, and began having a cough yesterday evening. Allergies Allergy/AdvReac Type Severity Reaction Status Date / Time amoxicillin Allergy Unknown HAPPENED Verified 12/12/23 08:10 AN Penicillins Allergy Unknown HAPPENED Verified 12/12/23 08:10 AN Home Medications Medication Instructions Recorded Confirmed Type ondansetron 8 mg disintegrating 8 mg PO TID PRN Nausea And Vomiting 12/12/23 12/12/23 History tablet Patient History Medical History No pertinent past medical history No pertinent family history Surgical History No pertinent past surgical history Social History Smoking Status: Never smoker Do You Dip or Chew Tobacco: No; Hx Alcohol Use: No Hx Substance Use: No Preferred Language: Yoruba Communication Ability: Effective Spin Tank Tender Required: No Beliefs That Will Affect Care: None Current Living Situation: Spouse Other Information That Helps Us Care for You: No Feels Safe at Home: Yes Safety Concerns: Feels Safe At This Time Assistive Devices: Glasses Physical Exam Physical Exam: Exam obtained with aid of in-person telepresenter. General: Well-appearing, no acute distress HEENT: Conjunctivae non-injected, sclerae anicteric, MMM, OP clear. Tongue slightly red. CV: RRR, faint systolic murmur Resp: CTAB; no wheezes, rales, or rhonchi. Respirations nonlabored though pt reports L chest discomfort with deep breathing. Abd: Soft, nontender, nondistended. Normal bowel sounds throughout. No masses or organomegaly. Back: No tenderness to palpation along spine or back of neck Ext: Warm and well-perfused, no edema. No joint warmth or effusions noted. L 2nd finger medial aspect with small healing puncture wound, no swelling or erythema, full ROM. Erythema of bilateral palms without desquamation. Skin: Diffuse blotchy erythema of L neck, L trapezius muscles, L shoulder, L axilla, and large confluent erythema on L trunk extending from axilla all the way down and spreading into flanks; warm, tender, and indurated. Few petechial macules on R thigh and ankles. Neuro: Alert & interactive. Grossly non-focal. Psych: Pleasant, appropriate. Results & Data Vital Signs (Past 12 Hours) Vital Signs Temp Pulse Pulse Resp BP Pulse Ox O2 Del Method 12/14/23 07:55 Room Air 12/14/23 07:37 36.7 C 93 H 17 117/73 96 Room Air 12/14/23 02:34 37.2 C 114 H 16 125/74 93 Room Air 12/13/23 23:01 103 H 12/13/23 23:00 37.1 C 102 H 16 118/73 94 Room Air Diagnostic Findings Diagnostics: 12/13 TTE: Normal LV size and function, no WMA. No significant valvular abnormalities. 12/13/23 CT C-spine 1. No acute fractures within the cervical spine. 2. Redemonstration of the left lower neck soft tissue edema with mild left lower cervical lymphadenopathy. This is similar to the prior CT examination. This could represent an infectious or inflammatory process. 3. The prevertebral soft tissues are intact. 4. No CT evidence for discitis/osteomyelitis within the cervical spine. 12/12 CXR 1. Left chest wall soft tissue swelling again noted 2. Mild cardiomegaly, mild congestive change, and bilateral pleural effusions have slightly progressed. 12/12/23 CT Chest FINDINGS: Note is made of extensive fluid and stranding within the left lower neck, supraclavicular region, left axillar and left chest wall. This extends into the left superior mediastinum. Multiple mildly enlarged lymph nodes are probably reactive. A left level 4 cervical lymph node on image 17 of 273 measures 2 x 0.8 cm. A left axillary node measures 1.3 x 1.3 cm. There is asymmetric enlargement of the left pectoralis major and minor muscles as well as the left shoulder and left lower cervical musculature. This also involves the lateral chest wall musculature. No soft tissue gas. No rim-enhancing fluid collection is present. Size of the heart is normal. There is no pericardial effusion. Trace left pleural effusion is present. There is no consolidation to suggest pneumonia. No areas of bony destruction are present. Visualized portions of the upper abdomen demonstrate mild splenomegaly. There is possible hepatic steatosis. Mild symmetric bilateral perinephric stranding. 1. Extensive inflammation within the left lower neck, supraclavicular region, left axilla and chest wall, extending into the mediastinum. The etiology is not clear however the findings favor an extensive infectious process with cellulitis. Although no soft tissue gas, infectious fasciitis cannot be excluded. Associated asymmetric enlargement of multiple left-sided muscles, as described above, could represent an infectious myositis. No soft tissue gas. No rim-enhancing fluid collections. 2. Left lower cervical and axillary lymphadenopathy, likely reactive. 3. Trace left pleural effusion. 4.Mild splenomegaly. Micro Summary: 12/13 HIV pending 12/13 BCx x2: NGTD 12/12 UCx: <1k 12/12 BCx x2: 4/4 Group A Strep 12/12 respiratory biofire panel neg 12/12 Lyme screen neg 12/12 UA: 10-30 WBCs, 0-4 RBcs, >30 epis, 1-5 granular casts. Antibiotic Summary: daptomycin (12/12 present) cefepime (12/12 present) clindamycin (12/12 present) prior vancomycin (12/12)
[2023-12-14] MEDS: OPTIRAY 320 500ml IV ONE (10:18)
[2023-12-14] MEDS: metroNIDAZOLE 500 MG/100 ML BAG IV SCH (10:33)
--- NOTE | 2023-12-14 11:09 | CT Scan Report ---
CT SCAN OF THE CHEST WITH IV CONTRAST CLINICAL HISTORY: Mediastinitis. COMPARISON STUDY: Chest CT due 12/12/2023. Chest x-ray dated 12/13/2023 appear TECHNIQUE: Following the IV administration of 90 cc of Optiray 320, CT scan of the thorax was perform ed from the thoracic inlet to the upper abdomen. Images are reviewed in the axial, sagittal, and mame nal planes. IV contrast was administered without complication. A dose lowering technique was utilize d adhering to the principles of ALARA. The examination is significantly compromised by motion artifac t. CT DOSE: 926.73 mGy.cm FINDINGS: Thyroid: Imaged portions of the thyroid gland are normal in size and attenuation. Thoracic aorta: The thoracic aorta is normal in caliber and demonstrates standard 3-vessel arch anato my. No dissection is seen. Pulmonary vasculature: The pulmonary trunk is normal in caliber. There are no filling defects identif ied in the central pulmonary vessels to indicate pulmonary embolus. Note that this examination was no t protocoled for evaluation of the pulmonary arteries. Heart: The heart is normal in size and without pericardial effusion. Lungs and pleural spaces: Evaluation of the lung parenchyma is significantly degraded by motion artif act. There is a small left pleural effusion with dependent consolidation. This has increased from pre vious. A trace right pleural effusion is new from 12/12/2023. There is dependent atelectasis in the [facility] lung base. The upper lobe lung parenchyma appears clear. The trachea and central airways are waterman nt. Lower neck: There are numerous prominent left supraclavicular nodes which measure up to 11 mm in shor t axis. Mediastinum: There is mild infiltration throughout the mediastinum, greatest superiorly and in the pr evascular space. There are prominent subcentimeter mediastinal lymph nodes. Angelina: Clear. Axillae: There are mildly enlarged left axillary and subpectoral lymph nodes which measure up to 12 m m in short axis. No right axillary lymphadenopathy is identified. Upper abdomen: A small hiatal hernia is noted. The liver appears steatotic. Skeletal structures: No lytic or blastic bony lesions are seen. Soft tissues: Again seen is significant superficial and deep inflammation and fluid involving the sof t tissues in the left lower neck, the left chest wall, and extending into the left flank/upper abdome n. This has modestly increased from previous, as there is now mild inflammation in the right anterior upper chest wall which was not seen on 12/12/2023. No soft tissue gas is identified. There is no orga nized fluid collection to suggest abscess. There is mild edema within the pectoralis and chest wall m usculature suggesting myositis. The left axillary vessels appear patent. IMPRESSION: 1. Significantly motion compromised examination. 2. Again seen is extensive inflammatory change and fluid within the superficial and deep soft tissues of the left lower neck, axilla, chest wall, and left flank. This has somewhat increased from 12/12/19 24, with inflammatory change now seen in the right anterior/upper chest wall. This is pathologically indeterminant, and almost certainly infectious in etiology. This likely represents cellulitis. A fasc iitis is not excluded. No soft tissue gas is seen and no organized/drainable fluid collection is [place] ntified. 3. Inflammation extends into the mediastinum, likely representing mediastinitis. There is also myosit is of the left chest wall musculature. 4. Mildly enlarged left supraclavicular, axillary, and mediastinal lymph nodes are likely reactive. 5. Left larger than right pleural effusions with dependent consolidation. These have increased in siz e from previous. 6. Mild splenomegaly. 7. Additional findings as above. ACT 112: Negative or not required by law. Electronically signed by: Tito Figueroa M.D. 12/14/2023 11:07 AM
[2023-12-14] MEDS: POTASSIUM CHLORIDE CRTAB 20 MEQ TABCR PO STA (11:51)
[2023-12-14 14:14] LABS: C Reactive Protein 23.51 mg/dl (0-0.5)
[2023-12-14] MEDS: CEFEPIME 2,000 MG in SYRINGE 0 ML IV SCH (14:26)
--- NOTE | 2023-12-14 15:27 | Surgery Consultation ---
Date of Consultation December 14, 2023 Assessment & Plan (1) Streptococcal bacteremia: Clinically improving which is clearly supporting her pain. There are no precautions to drain or tissue to debride. I will continue with the current regimen and consider reimaging on . will monitor closely for any d etioration. (2) Acute mediastinitis: (3) Cellulitis of arm, left: History of Present Illness Attending Physician: Pato Kline DO History of Present Illness 43-year-old soft tissue infection. Began earlier in the week and sometimes cold. His left index finger complete. This is chronic. He was seen in urgent center and had some testing done and sent home. He subsequent developed worsening left axillary and upper extremity pain with erythema as well as a high fever. He has had imaging which shows extensive soft tissue cellulitis as well as mediastinitis. There is no gas-forming organisms or fluid collections at this point. First time today he is starting to feel better. He has less pain and better range of motion in his left upper extremity. Allergies Allergy/AdvReac Type Severity Reaction Status Date / Time amoxicillin Allergy Unknown HAPPENED Verified 12/12/23 08:10 AN Penicillins Allergy Unknown HAPPENED Verified 12/12/23 08:10 AN INFANT Home Medications Medication Instructions Recorded Confirmed Type ondansetron 8 mg disintegrating 8 mg PO TID PRN Nausea And Vomiting 12/12/23 12/12/23 History tablet Patient History Medical History No pertinent past medical history No pertinent family history Surgical History No pertinent past surgical history Social History Smoking Status: Never smoker Do You Dip or Chew Tobacco: No; Hx Alcohol Use: No Hx Substance Use: No Preferred Language: [place] Citizen Communication Ability: Effective Study Manager Required: No Beliefs That Will Affect Care: None Current Living Situation: Spouse Other Information That Helps Us Care for You: No Feels Safe at Home: Yes Safety Concerns: Feels Safe At This Time Assistive Devices: Glasses Physical Exam Constitutional: WD/WN, vitals as above no acute distress and not ill appearing Eyes: PERRL, conjunctivae normal, anicteric sclerae EOM intact bilaterally ENMT: external ear and nose normal, oropharynx normal Ears: no hearing impairment Neck: trachea midline, no thyromegaly Respiratory: normal respiratory effort; no respiratory distress and does not use accessory muscles Cardiovascular: Rate/Rhythm: regular rate and regular rhythm Gastrointestinal (Abdomen): normal bowel sounds, soft, nontender, no hepatosplenomegaly Skin: Diffuse erythema from his left flank up to his axilla left upper extremity his chest wall and up into the base of his neck. It is warm to the touch. There is no fluctuance. Psychiatric: Orientation: alert, oriented x 3 and cooperative Results & Data Vital Signs (Past 12 Hours) Vital Signs Temp Pulse Pulse Resp BP Pulse Ox O2 Del Method 12/14/23 14:34 37.8 C H 111 H 22 132/75 95 Room Air 12/14/23 13:34 97 H 12/14/23 10:51 37.2 C 102 H 20 119/76 98 Room Air 12/14/23 07:55 Room Air 12/14/23 07:37 36.7 C 93 H 17 117/73 96 Room Air PG Care Time/CCT Total # of Minutes Spent Total Time Spent with Patient: Total time spent is greater than 50% in coordination of care (as documented) at patient's floor/unit and/or counseling patient: Coding Level of Care Code 03907 IN/OBS CONSULT LVL 3,45M Diagnoses Streptococcal bacteremia R78.81; B95.5 Acute mediastinitis J98.51 Cellulitis of arm, left L03.114
--- NOTE | 2023-12-14 17:32 | Allergy & Immunology Consult ---
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 Unfortunately, the details of this possible reaction are entirely unclear though it appears the patient was hospitalized around the time of his reaction. For this reason, given the lack of clarity of what the patient's reaction might have been as well as the potential severity of his previous reaction (having been in a healthcare setting) and his current tenuous health status, it was explained that a more conservative approach to the evaluation of a possible penicillin allergy would be warranted (even though it is the natural history tendency for penicillin allergy to be outgrown, presuming the true presence of an IgE mediated allergic reaction to penicillin to begin with). From an Allergy/Immunology standpoint, the patient should continue on his existing antibiotic coverage to treat his current infection until he is better. His penicillin allergy status will be assessed with skin testing and subsequent challenge on an outpatient basis. -Deferring patient's penicillin allergy evaluation for an outpatient basis (given patient's unclear, though potentially severe, past reaction history and current tenuous health status) -Will arrange for outpatient follow-up in around 1-2 months for further penicillin allergy evaluation -Continue previously tolerated acceptable antibiotic coverage and other management as clinically indicated History of Present Illness Reason for Consultation: evaluate penicillin allergy status Attending Physician: Pato Kline, History of Present Illness The patient is a 43-year-old man who is currently inpatient for continued management of left arm cellulitis, necrotizing fasciitis, bacteremia, and mediastinitis. The patient explains that he was in his usual health until around 5 days ago or so when he started to develop fever and left arm/axillary pain and redness. He eventually presented to the Emergency Room on 12/12/23 at which point he was admitted for IV antibiotic therapy. In the early stages of his hospitalization he was treated with vancomycin and reportedly developed "red man" syndrome. His vancomycin has since been discontinued (although it was discussed at the time of consultation that "red man" syndrome does not count as an IgE mediated drug allergy, but rather an infusion reaction which simply requires a slow rate of infusion +/- pretreatment with acetaminophen and H1- blocking antihistamine medications). Nevertheless, thus far he has been managed with broad-spectrum antibiotics, and after input from Infectious Disease he has been continued on a regimen of daptomycin, cefepime, metronidazole, and clindamycin. However, it is Infectious Disease's hope that his antibiotic coverage can be narrowed further to linezolid and Unasyn if possible. However, the patient has a penicillin allergy status (thus prompting consultation of Allergy/Immunology). Unfortunately, the patient explains that his penicillin allergy history occurred when he was an infant and hospitalized for some unclear reason. He is not sure of what infection he might have received a penicillin antibiotic for, and is entirely unclear what his symptoms and subsequent management might have been. His parents were reportedly advised to say that he is allergic to penicillin, and the patient has also continued to endorse this penicillin allergy status ever since. Allergies Allergy/AdvReac Type Severity Reaction Status Date / Time amoxicillin Allergy Unknown HAPPENED Verified 12/12/23 08:10 AN INFANT Penicillins Allergy Unknown HAPPENED Verified 12/12/23 08:10 AN Home Medications Medication Instructions Recorded Confirmed Type ondansetron 8 mg disintegrating 8 mg PO TID PRN Nausea And Vomiting 12/12/23 12/12/23 History tablet Patient History Medical History (Updated 12/14/23 @ 17:46 by Silas Garcia MD) Penicillin allergy No pertinent past medical history No pertinent family history Surgical History No pertinent past surgical history Social History Smoking Status: Never smoker Do You Dip or Chew Tobacco: No; Hx Alcohol Use: No Hx Substance Use: No Preferred Language: Armenian Communication Ability: Effective Custom Designer Required: No Beliefs That Will Affect Care: None Current Living Situation: Spouse Other Information That Helps Us Care for You: No Feels Safe at Home: Yes Safety Concerns: Feels Safe At This Time Assistive Devices: Glasses Review of Systems Review of Systems: I reviewed the history of the following medical systems: constitutional, eyes, ears/nose/mouth/throat, respiratory, cardiovascular, gastrointestinal, genitourinary, musculoskeletal, integumentary, neurologic, psychiatric, endocrinologic, hematologic/lymphatic, and allergic/immunologic. Positive and/or significant negative findings are as above, otherwise, ROS was normal. Physical Exam Physical Exam: General: NAD, well-appearing man resting in hospital bed, pleasant and cooperative, engaged in interview and exam HEENT: NC/AT, MMM, no tonsillar swelling/erythema, no conjunctival injection, no nasal discharge Neck: supple, FROM, no LAD Cardiac: normal S1 and S2, RRR, no M/R/G, brisk cap refill < 2 seconds Lungs: CTAB, no W/R/R, normal work of breathing Abdomen: normal BS, soft, NT/ND, no hepatosplenomegaly, no masses Extremities: 3+ pulses, no gross deformities, no cyanosis/edema Neuro: no focal deficits, appropriate muscle strength and tone Skin: diffuse blotchy patch of erythema involving the left side of the patient's trunk/torso and extending to the left arm, otherwise clean/dry/intact Results & Data Vital Signs (Past 12 Hours) Vital Signs Temp Pulse Pulse Resp BP Pulse Ox O2 Del Method 12/14/23 16:33 97 H 12/14/23 15:53 37.1 C 12/14/23 14:34 37.8 C H 111 H 22 132/75 95 Room Air 12/14/23 13:34 97 H 12/14/23 10:51 37.2 C 102 H 20 119/76 98 Room Air 12/14/23 07:55 Room Air 12/14/23 07:37 36.7 C 93 H 17 117/73 96 Room Air [place] [address] IN/OBS CONSULT LVL 4,60M Patient Type New History Detailed Exam Detailed Medical Decision Making Moderate Complexity Diagnoses Penicillin allergy Z88.0
--- NOTE | 2023-12-14 18:26 | Billing Data ---
Date of Service December 14, 2023 Coding Level of Care Code 27423 SUB INP/OBS CARE MIN
--- NOTE | 2023-12-15 06:48 | Hospitalist Progress Note ---
Date of Service December 15, 2023 Assessment & Plan (1) Cellulitis of arm, left: Plan: 43 year old male admitted for management of moderate to severe sepsis and lymphangitis with ?mediastinitis ?myositis. Lymphangitis; SIRS SIRs criteria - febrile, tachypneic, tachycardia, hypotension. CT chest with evidence of cellulitis vs lymphangitis vs . CT C-Spine without signs of abscess. Patient with red man reaction to vanc. Blood cultures growing pansensitive gram positive GAS. Repeat cx NGTD x48H. TTE negative for vegetations. HIV negative. ID rec penicillin challenge - allergy consulted will do this on an outpatient basis and avoid penicillins for now. Repeat CT Chest largely unchanged. Surgery on board - rec repeat imaging later in the week, hold off on surgery for now. Patient continues to make obvious clinical improvement. Most likely delayed leukocytosis and appropriate lymphatic drainage to clear the infection presenting as spreading erythema. Spreading erythema, increasing leukocytosis, and increased pleural effusion could be indicative of exudative effusion. Patient with third spacing likely from fluid resuscitation. Would d/c mIVF. Third spacing would likely self resolve, but will tap pleural effusion to r/o developing empyema/exudative effusion. Patient afebrile on scheduled Tylenol - transition to PRN and monitor for fever. Blood culture 12/12 - GAS bacteremia, pansensitive Blood cultures 12/13 NGTD x 48H Urine cx 12/12 NGTD Sputum culture 12/15 - pending Antibiotics cefepime, daptomycin, and clindamycin (anti-toxin) 12/12 - 12/15 added metronidazole 12/14 start linezolid and ceftriaxone 12/15 Thoracentesis today - f/u fluid studies Tylenol 650 mg PRN - monitor for fevers ABX adjusted as above Surg and ID on board - appreciate recs Allergy to f/u outpatient for penicillin challenge Infected Urinalysis: U/A with protein, blood, WBC, bacteria, epithelial cells. No urinary symptoms, may be acute cystitis vs contaminant. Current abx will cover regardless. Repeat UA outpatient as there was proteinuria and hematuria. Hyponatremia: Na 126 on arrival. Improving. Patient with emesis [id number], likely related. F/E/N/GI: Regular diet. DVT PPx: Heparin SQ q12h Code: Full Dispo: PCU Admission and Anticipated Discharge Date Admission Date: December 12, 2023 Supervising Physician Co-Signing Physician Notes I personally examined the patient and verified all de paz points of history and exam, discussed case, and agree with decision making with Dr Teixeira A little bit of vomiting todaynotes that there was 2 episodes, coughing and then he notes whenever he coughs a lot he gags and then vomits. His breathing feels a bit heavier. Infectious disease and pulmonary as well as surgery input appreciated. Extensive discussion and update with patient and family, answered all questions to the best my ability and to their satisfaction. Vitals noted, in general he is in no distress and mildly fatigued. HEENT normocephalic atraumatic mucous membranes moist. Lungs show faint but coarse rhonchi bilaterally and diminished breath sounds bibasilar. Erythema appears to be clearing and tracking along fascial planes, the edema is a little bit worsestill not tender no crepitus, no tenderness in his axilla no tenderness in his neck or supraclavicular region. Severe sepsisstrepI suspect lymphangitis and subsequent secondary bacteremia is the main cause; have to assume infectious myositis, but may also be reactive inflammation given that the bulk of the lymphangitis is right next to the potentially involved muscles clinically does appear to be improving nicely. Mediastinitis seems to mostly be extension of lymphangitis at this point - ongoing abx. Obviously ongoing vigilance. Continue antibiotics. I suspect his pulmonary findings are from volume overload from the fluid management required for his septic hemodynamics earlier in his hospital stayhe is now stable enough to tolerate a dose of Lasix, although also time and mobility should help with that. Agree with infectious disease that a thoracentesis is warranted to ensure that the effusions are transudative from fluid overload not exudative from strep. MICHEAL - sec to Sepsis. Improved. Hypontremia - ongoing improvement DVT proph - heparin SQ otherwise as above Subjective Seen at bedside this AM. Reports feeling significantly better. Re-evaluated later in the morning. Patient with post-tussive emesis, which was physically exhausting. Overall range of motion and pain improving. Deep breaths less painful. Continued cough. Review of Systems 2 Review of Systems: as per HPI Physical Exam 2 Physical Exam: Gen: fatigued but improved appearing male in NAD HEENT: AT NC MMM Resp: CTAB no wheezing, no increased work of breathing, respiratory rate has slowed to a normal rate CV: RRR, no m/r/g clinically well perfused, no edema Abd: non-distended Skin area of swelling and erythema at the left axilla, left lateral abdomen into the groin/stomach, and left upper arm. Erythema has spread - tracking in a lymphatic pattern. Pain nearly gone. Range of motion significantly improved. Previous left neck pain/swelling has resolved, swelling more consistent with third spacing Psych: appropriate mood and affect Neuro: alert and oriented Results & Data Results & Data Vital Signs (Past 12 Hours) Vital Signs Temp Pulse Pulse Resp BP BP Pulse Ox 12/15/23 02:38 37.2 C 81 20 118/69 95 12/15/23 00:00 93 H 12/14/23 23:25 37.2 C 84 21 125/70 95 12/14/23 20:15 12/14/23 19:31 37.5 C 104 H 20 130/78 95 O2 Del Method 12/15/23 02:38 Room Air 12/15/23 00:00 12/14/23 23:25 Room Air 12/14/23 20:15 Room Air 12/14/23 19:31 Room Air Laboratory Results 12/15/23 05:55 12/15/23 05:55 Resident Activity Tracking Resident Involvement: Resident Care Provided Care Provided: Adult Hospital Medicine
[2023-12-15 07:16] LABS: Basophils # (auto) 0.02 K/uL (0.00-0.20); Basophils % (auto) 0.1 %; Dohle Bodies 2+; Eosinophils # (auto) 0.54 K/uL (0.00-0.50); Eosinophils % (auto) 2.1 %; Hematocrit (blood only) 34.2 % (42.0-52.0); Hemoglobin 11.8 g/dl (14.0-18.0); Immature Granulocytes # (auto) 1.27 K/uL (0.01-0.20); Lymphocytes # (auto) 2.05 K/uL (1.20-3.40); Lymphocytes % (auto) 8.1 %; Mean Corpuscular Hemoglobin 29.6 pg (25.0-34.0); Mean Corpuscular Hgb Conc 34.5 g/dL (32.0-36.0); Mean Corpuscular Volume 85.7 fL (80.0-100.0); Mean Platelet Volume 10.3 fL (9.4-12.4); Monocytes # (auto) 1.23 K/uL (0.11-0.59); Monocytes % (auto) 4.8 %; Neutrophils # (auto) 20.28 K/uL (1.40-6.50); Neutrophils % (auto) 79.9 %; Platelet Count 180 K/uL (130-400); RDW Standard Deviation 40.6 fL (36.4-46.3); Red Blood Count 3.99 M/uL (4.70-6.10); Target Cells 1+; Toxic Granulation 2+; White Blood Count 25.39 K/ul (4.8-10.8)
[2023-12-15 07:18] LABS: Albumin Globulin Ratio 0.9 (0.9-2); Albumin Level 2.6 gm/dl (3.4-5.0); BUN Creatinine Ratio 25.7 (10-20); Bilirubin,Total 1.2 mg/dl (0.2-1.0); C Reactive Protein 14.93 mg/dl (0-0.5); Calcium 7.8 mg/dl (8.6-10.3); Creatinine Clr Calc Pharmacy 169.9 ml/min; Est GFR (Non-African American) 115.6 ml/min; Globulin 2.9 gm/dl (2.5-4.0); Potassium 2.8 mmol/L (3.5-5.1); Total Protein 5.5 gm/dl (6.0-8.3)
[2023-12-15] MEDS: POTASSIUM CHLORIDE / WTR 10 MEQ/100 ML PLCT IV SCH (08:03)
[2023-12-15] MEDS: POTASSIUM CHLORIDE CRTAB 20 MEQ TABCR PO STA ×2 (08:15→14:58)
--- NOTE | 2023-12-15 10:10 | Surgery Progress Note ---
Date of Service December 15, 2023 Assessment & Plan (1) Acute mediastinitis: Plan: Patient feeling a little bit better than yesterday WBC did bump to 25. vitals been stable, temp 100F at 2pm yesterday, afebrile since Erythema stable to maybe mildly improving continues on IV abx, Infectious disease is following closely as well possible re-imaging in the near future as above. continues to slowly improve. he has no new complaints. afebrile but wbc increased today. he is having thoracentesis today which I think is good. if evidence of empyema might need transferred to tertiary facility with thoracic surgery. clinically stable. will continue to follow while here. (2) Streptococcal bacteremia: Admission and Anticipated Discharge Date Admission Date: December 12, 2023 Subjective patient reports some mild improvement. can move his L arm a little more than he previously could. no fevers/chills, CP or SOB. has been coughing a bit. Physical Exam Physical Exam: awake/alert Respiratory: normal respiratory effort Skin: L sided erythema from base of L neck/some L chest wall, down axilla and flank Results & Data Vital Signs (Past 12 Hours) Vital Signs Temp Pulse Pulse Resp BP BP Pulse Ox 12/15/23 07:45 12/15/23 07:26 99.3 F 82 17 129/80 97 12/15/23 02:38 99.0 F 81 20 118/69 95 12/15/23 00:00 93 H 12/14/23 23:25 99.0 F 84 21 125/70 95 O2 Del Method 12/15/23 07:45 Room Air 12/15/23 07:26 Room Air 12/15/23 02:38 Room Air 12/15/23 00:00 12/14/23 23:25 Room Air PG Care Time/CCT Total # of Minutes Spent Total Time Spent with Patient: Total time spent is greater than 50% in coordination of care (as documented) at patient's floor/unit and/or counseling patient: Coding Level of Care Code 27929 SUB INP/OBS CARE 11/25MIN Diagnoses Acute mediastinitis J98.51 Streptococcal bacteremia R78.81; B95.5
[2023-12-15] MEDS: ONDANSETRON INJ 2 MG/ML 2 ML VIAL IV PRN (10:52)
--- NOTE | 2023-12-15 10:56 | Infectious Disease Progress Nt ---
Date of Service December 15, 2023 Assessment & Plan (1) Group A streptococcal infection: (2) Necrotizing fasciitis due to Streptococcus pyogenes: (3) Acute mediastinitis: (4) Streptococcal bacteremia: Plan Uri Barrientos is a 43-year-old man with no significant PMH who presents to [facility] on 12/12/23 with left axillary pain, redness, swelling, and fevers, with CT chest showing extensive inflammation in L neck, supraclavicular region, L axilla, chest wall, and with extension into mediastinum. Found to have GAS bacteremia. ID is consulted for L axillary and chest wall SSTI and necrotizing fasciitis, mediastinitis, and GAS bacteremia. 12/14 CT showing increased pleural effusions and somewhat increasing spread of infection through chest wall, as well as mediastinitis. With increasing leukocytosis to 25 on 12/15 and continued spread of erythema into L inguinal region, L trunk, and L flank. With invasive GAS infection c/w necrotizing soft tissue infection (NSTI), and CT showing mediastinitis and pleural effusions. Appears to have started in L axillary region, rather than pharyngeal source although spread into mediastinum is similar to deep neck space infection with concern that necrotizing mediastinitis can rapidly spread. Appreciate surgery following closely. Regarding pleural effusions, consider thoracentesis for drainage. If pursuing, would send for cell count, chemistries, protein/LDH, and bacterial/fungal cx. Low threshold for repeat CT imaging, would consider doing this in the coming 1-2 days. If continued worsening, consideration of thoracic surgery evaluation, transfer to tertiary care. Also with GAS bacteremia, thus far repeat BCx from 12/13 are NGTD and 12/13 TTE without evidence of valvular vegetations. Original port of entry may be a puncture wound of his L 2nd finger (which became purulent, and has since healed) Pt with hypotension to 80s/50s in the ED though improved with resuscitation. Also with signs of multiorgan involvement including MICHEAL, worsening plt count, and mildly elevated bilirubin. Together, these could indicative a component of possible GAS-related toxic shock syndrome. Also with pyuria and mild perinephric stranding b/l on CT, UA also with granular casts. Although GAS likely driving pathogen, with mediastinitis component and spreading infection will remain slightly broader for time being. Discussed with ID pharmacy. Will change to linezolid (maintain GAS anti-toxin effect), ceftriaxone, and metronidazole. If improving in coming days, can consider changing to cefazolin to target GAS (or Unasyn if able to do graded trial with allergy)Of note, pts penicillin reaction (rash when baby) is unlikely to be severe and pt very likely to tolerate penicillin per PEN-FAST score of 0-1per allergy evaluation will defer PCN testing and evaluation to outpatient setting. ID Problem List: 1.L axillary and L chest wall SSTI c/f necrostizing fasciitis, mediastinitis 2.GAS bacteremia with c/f GAS-related toxic shock syndrome 3.Acute kidney injury Recommendations: - Change to linezolid (antitoxin) 600 mg PO BID, ceftriaxone 2g IV q24h, and metronidazole 500 mg IV TID - If improving in coming days, consider changing to cefazolin to target GAS (or Unasyn if able to do graded trial with allergy) - Appreciate surgery involvement - Consider thoracentesis for drainage of pleural effusions. If pursuing, would send for cell count, chemistries, protein/LDH, and bacterial/fungal cx - Low threshold for repeat CT imaging, would consider doing this in the coming 1-2 days. If continued worsening, consideration of thoracic surgery evaluation, transfer to tertiary care. - Have demarcated area on L trunk/flank to monitor carefully for spread, re- marked on 12/15 - Appreciate allergy evaluation. Pts PEN-FAST score is 0-1 which is reassuring. ID will continue to follow. Juanita Nicholson MD, MHS Infectious Diseases [facility] ID Connect direct line: [phone] Admission and Anticipated Discharge Date Admission Date: December 12, 2023 Subjective Subsequent visit was provided via telemedicine using two-way real-time interactive telecommunication between the patient and the telemedicine provider. For the duration of the visit, the provider was performing the assessment from a different facility than the patient. This includesuse of bluetooth stethoscope forauscultationperformed by the telepresenter that the telemedicine provider can hear if described in the physical exam. Site Inspector contact information: Please call [facility] Call Center . (Phone Number For Physician Use Only) After establishing a telemedicine visit, patient was: Patient was verified with two unique identifiers, Patient/authorized rep acknowledged consent and understanding and Gave permission to continue telehealth session Time Spent with Patient: Subsequent => 35 min - Repeat 12/14 CT with increasing pleural effusions and somewhat increased inflammation of deep soft tissues, mediastinitis - T37.8 last night. Afebrile this am, WBC increased to 25 - Overall, pt reports that he feels better. Less pain in axillary region. Still having a productive cough, says that it is less painful to take deep breaths and that he is able to more effectively cough up sputum. However, still having more spread of L-sided erythema around trunks, inguinal region, and flank. Physical Exam Physical Exam: Exam obtained with aid of in-person telepresenter. General: Well-appearing, no acute distress HEENT: Conjunctivae non-injected, sclerae anicteric, MMM, OP clear Resp: Respirations nonlabored, pt reports improving chest discomfort with deep breaths. Abd: Soft, nontender, nondistended. Back: No tenderness to palpation along spine Ext: Warm and well-perfused, no edema. No joint warmth or effusions noted. L 2nd finger medial aspect with small healing puncture wound, no swelling or erythema, full ROM. Improving erythema of bilateral palms without desquamation. Skin: Diffuse blotchy erythema of L neck, L trapezius, L axilla, and large confluent erythema on L trunk extending from axilla down to inguinal region and into L flank. Spreading beyond demarcated line that was drawn yesterday, with increased spread in the trunk and flank regions, and into the inguinal region. Few erythematous macules on L upper back. Neuro: Alert & interactive. Grossly non-focal. Psych: Pleasant, appropriate. Results & Data Vital Signs (Past 12 Hours) Vital Signs Temp Pulse Pulse Resp BP BP Pulse Ox 12/15/23 10:38 87 12/15/23 07:45 12/15/23 07:26 37.4 C 82 17 129/80 97 12/15/23 02:38 37.2 C 81 20 118/69 95 12/15/23 00:00 93 H 12/14/23 23:25 37.2 C 84 21 125/70 95 O2 Del Method 12/15/23 10:38 12/15/23 07:45 Room Air 12/15/23 07:26 Room Air 12/15/23 02:38 Room Air 12/15/23 00:00 12/14/23 23:25 Room Air
[2023-12-15] MEDS: LINEZOLID 600 MG TAB PO SCH (12:51)
[2023-12-15] MEDS: ACETAMINOPHEN 325 MG TAB PO PRN (12:59)
--- NOTE | 2023-12-15 13:38 | Pulmonary Consultation ---
Date of Consultation December 15, 2023 Assessment & Plan (1) Pleural effusion: (2) Acute mediastinitis: (3) Streptococcal bacteremia: Plan IMPRESSION: 43-year-old male with no significant past medical history who was admitted with group A strep bacteremia in the setting of cellulitis of the LEFT axilla. Findings with pleural effusion in the setting of mediastinitis prompted pulmonary consultation for thoracentesis and evaluation. RECOMMENDATIONS: 1. Pleural Effusion - LEFT greater than right pleural effusion. Certainly a degree of this can be contributed to his volume status as he is currently +15L. Regardless, would agree with proceeding with thoracentesis with fluid interrogation secondary to underlying concerns of mediastinitis. Discussed procedure with patient and . Can be performed by interventional radiology. Appreciate their help with this. 2. Acute mediastinitis - With prior cough as well as some retching vomiting prior to admission. Continue with antibiotic guided management per infectious disease. 3. Streptococcal bacteremia - Second round of blood cultures have seemed to be negative at this point which is encouraging. Continue with antibiotic directed therapy per infectious disease management. Thank you for allowing us to participate in the care of this pleasant patient. Supervising Physician Co-Signing Physician Notes I saw and evaluated the patient with Quintin Jarvis PA-C and agree with findings and plan as documented in the note. 43-year-old male was admitted to the hospital for cellulitis, was found to have group A strep with mediastinitis and necrotizing fasciitis Pulmonary consulted for right-sided pleural effusion At the time of examination patient's was in the room He has been using incentive spirometry. He usually coughs when he takes deep breath in. He walks around with mild shortness of breath. Denies any chest pain, no chest tightness, no wheezing at that time. He was saturating 99% on room air at rest while sitting. Denies any pleuritic chest pain right now Constitutional: No acute distress HEENT: EOMI, PERRLA Respiratory system: Decreased air entry on the right side, no wheeze, rhonchi, mild crackles bilateral lower lobes CVS: S1-S2 positive, no murmurs or gallops, tachycardia Abdomen: Soft, nontender, nondistended, positive bowel sounds x4 Extremities: +2 pulses bilaterally radialis/ dorsalis pedis, no cyanosis, +2 pitting edema bilateral lower extremity Neuro: Awake alert oriented x3 Psych: Normal mood and affect G/U: No Krause Skin: Erythema appreciated around the left axilla, as well as the left abdomen groin and upper arm Plan: Patient is +14 L since coming to the hospital. He does have pitting edema bilateral lower extremity On the CT chest done 12/14/2023 there is small to moderate amount of left-sided pleural effusion with some dependent compressive atelectasis. Given the patient is still spiking fever, history of fasciitis (no subcu gas on the CAT scan) as well as mediastinitis. I think it is reasonable for patient to have thoracentesis done to make sure the fluid is not infected. I do think the probability of fluid overload being the cause of effusion is high. I would recommend aggressive diuresis to keep the patient negative balance. Case was discussed with primary team. Please note the above document was generated using voice recognition software. It may contain grammatical, syntax or spelling errors.Any formal questions or concerns about the content, text or information contained within the body of this dictation should be directly addressed to the provider for clarification. History of Present Illness Reason for Consultation: B/l Pleural effusions Requesting Physician: Dr. Brown Attending Physician: Pato Kline DO History of Present Illness Patient is a 43-year-old male with no significant past medical history who presented to the emergency department on 12/12 with febrile illness in the setting of cellulitis to the LEFT axilla. Patient was found to be bacteremic and had been placed on a combination of broad-spectrum antibiotics which has been directed therapy by infectious disease. During evaluation and chest CT, the patient was noted to have bilateral pleural effusions. Given his bacteremia and ongoing fevers with recent episodes of coughing and vomiting, pulmonary medicine was consulted for thoracentesis for evaluation and interrogation of pleural fluid. Allergies Allergy/AdvReac Type Severity Reaction Status Date / Time amoxicillin Allergy Unknown HAPPENED Verified 12/15/23 11:07 AN Penicillins Allergy Unknown HAPPENED Verified 12/12/23 08:10 AN INFANT vancomycin AdvReac [place] Verified 12/15/23 11:15 Home Medications Medication Instructions Recorded Confirmed Type ondansetron 8 mg disintegrating 8 mg PO TID PRN Nausea And Vomiting 12/12/23 12/12/23 History tablet Patient History Medical History (Updated 12/15/23 @ 15:02 by Quintin Jarvis PA-C) Penicillin allergy No pertinent past medical history No pertinent family history Surgical History No pertinent past surgical history Social History Smoking Status: Never smoker Do You Dip or Chew Tobacco: No; Hx Alcohol Use: No Hx Substance Use: No Preferred Language: Palestinian Communication Ability: Effective Slab Conditioner Supervisor Required: No Beliefs That Will Affect Care: None Current Living Situation: Spouse Feels Safe at Home: Yes Assistive Devices: Glasses Review of Systems 2 Review of Systems: A complete 10 point review of systems was reviewed with the patient with pertinent positives and negatives as per history of present illness. All else were negative. Physical Exam 2 Physical Exam: VITAL SIGNS - Vital signs and nursing notes were reviewed. GENERAL - 43-year-old male appearing his stated age who is in no acute distress. Communicates well with provider and answers questions appropriately. SKIN - Without rashes or lesions. NOSE - Midline and without cyanosis. MOUTH/OROPHARYNX - Without perioral cyanosis. NECK - Neck with FROM. LUNGS - Chest wall evaluation demonstrates a normal chest wall A:P diameter. Auscultation reveals clear breath sounds bilaterally. CARDIAC - RRR with S1/S2. No murmur, rubs, or gallops appreciated. ABDOMEN - Abdominal inspection demonstrates a flat abdomen. BS normoactive all four quadrants. No tenderness, palpable masses, or ascites noted. EXTREMITIES - Nail clubbing not present. No peripheral cyanosis. No pretibial edema present. +3/5 radial palpated throughout. PSYCH - A&Ox3 and cooperates fully with examiner. Pt is very pleasant and interacts well with examiner. Results & Data Results & Data Vital Signs (Past 12 Hours) Vital Signs Temp Pulse Pulse Resp BP BP Pulse Ox 12/15/23 13:00 37.9 C H 91 H 17 124/79 95 12/15/23 10:38 87 12/15/23 07:45 12/15/23 07:26 37.4 C 82 17 129/80 97 12/15/23 02:38 37.2 C 81 20 118/69 95 O2 Del Method 12/15/23 13:00 Room Air 12/15/23 10:38 02/14/24 07:45 Room Air 12/15/23 07:26 Room Air 12/15/23 02:38 Room Air Laboratory Results 12/15/23 05:55 12/15/23 05:55 PG Care Time/CCT Total # of Minutes Spent Total Time Spent with Patient: Total time spent is greater than 50% in coordination of care (as documented) at patient's floor/unit and/or counseling patient: Coding Level of Care Code 12591 INT INP/OBS CARE 3/75MIN Diagnoses Pleural effusion J90 Acute mediastinitis J98.51 Streptococcal bacteremia R78.81; B95.5
[2023-12-15] MEDS: cefTRIAXone SODIUM 2,000 MG in DEXTROSE 5 % MINI-B 50 ML IV SCH (14:53)
[2023-12-15] MEDS: FUROSEMIDE INJ 20 MG/2 ML VIAL IV ONE (14:57)
--- NOTE | 2023-12-15 15:24 | Billing Data ---
Date of Service December 15, 2023 Coding Level of Care Code 03560 SUB INP/OBS CARE 3MIN
--- NOTE | 2023-12-16 06:54 | Hospitalist Progress Note ---
Date of Service December 16, 2023 Assessment & Plan (1) Cellulitis of arm, left: Plan: 43 year old male admitted for management of moderate to severe sepsis and lymphangitis with ?mediastinitis ?myositis. Lymphangitis; SIRS SIRs criteria - febrile, tachypneic, tachycardia, hypotension. CT chest with evidence of cellulitis vs lymphangitis vs mediastinitis vs myositis. CT C-Spine without signs of abscess. Patient with red man reaction to vanc. Blood cultures growing pansensitive gram positive GAS. Repeat cx NGTD x48H. TTE negative for vegetations. HIV negative. Repeat CT Chest largely unchanged. Surgery on board - rec repeat imaging later in the week, hold off on surgery for now. Patient continues to make obvious clinical improvement. Most likely delayed leukocytosis and appropriate lymphatic drainage to clear the infection presenting as spreading erythema. Spreading erythema, increasing leukocytosis, and increased pleural effusion could be indicative of exudative effusion. Patient with third spacing likely from fluid resuscitation. Tap consistent with exudative fluid without signs of empyema or fibrosis. Discussed case with Dr. Wong - continue with abx only. Patient afebrile x 24 hours without antipyretics. Blood culture 12/12 - GAS bacteremia, pansensitive Blood cultures 12/13 NGTD x 48H Urine cx 12/12 NGTD Sputum culture 12/15 - pending Antibiotics cefepime, daptomycin, and clindamycin (anti-toxin) 12/12 - 12/15 added metronidazole 12/14 linezolid and ceftriaxone 12/15 Thoracentesis with exudative fluid no indication for CT placement or VATS, continue with current treatment plan Tylenol 650 mg PRN - monitor for fevers ABX adjusted as above Surg, Pulm, and and ID on board - appreciate recs Allergy to f/u outpatient for penicillin challenge Infected Urinalysis: U/A with protein, blood, WBC, bacteria, epithelial cells. No urinary symptoms, may be acute cystitis vs contaminant. Current abx will cover regardless. Repeat UA outpatient as there was proteinuria and hematuria. Hyponatremia: Na 126 on arrival. Improving. Patient with emesis x24 hours prior to admission - likely related. F/E/N/GI: Regular diet. DVT PPx: Heparin SQ q12h Code: Full Dispo: PCU Admission and Anticipated Discharge Date Admission Date: December 12, 2023 Supervising Physician Co-Signing Physician Notes I personally examined the patient and verified all de paz points of history and exam, discussed case, and agree with decision making with Dr Teixeira Overall feeling better. Nausea is betterappetite poor but no nausea or vomiting. Hiccups are very annoying. Otherwise he is feeling overall better and is starting to get up and move around more. Vitals noted, in general he is in no distress and mildly fatigued. HEENT normocephalic atraumatic mucous membranes moist. Redness in his skin is largely resolving. Normal gait. Severe sepsisstrepI suspect lymphangitis and subsequent secondary bacteremia is the main cause; have to assume infectious myositis, but may also be reactive inflammation given that the bulk of the lymphangitis is right next to the potentially involved muscles clinically does appear to be improving nicely. Mediastinitis seems to mostly be extension of lymphangitis at this point - ongoing abx. Obviously ongoing vigilance. thoracentesis showed exudative fluid, but radiology noted they felt they had a successful drainage, and in discussion with surgery and pulmonary, no further treatment would be needed. Repeat CT chest likely tomorrow versus the next day to ensure no other new loculations etc. have formed, but he looks like he is improving nicely. While I had an extensive discussion with the patient about IV antibiotics, later discussion with infectious disease yields high probability of a successful p.o. regimen. She would like us to revisit penicillin allergy with allergy/immunology now that the patient is more stable. MICHEAL - sec to Sepsis. Improved. Hypontremia - ongoing improvement DVT proph - heparin SQ otherwise as above Subjective Seen today while seated in the chair. Patient able to walk to the chair himself. Overall feeling better. Did have some nausea with coughing this morning. No vomiting. No fevers. Review of Systems 2 Review of Systems: as per HPI Physical Exam 2 Physical Exam: Gen: fatigued but improved appearing male in NAD HEENT: AT NC MMM Resp: no increased work of breathing, respiratory rate has slowed to a normal rate CV: clinically well perfused, no edema Abd: non-distended Psych: appropriate mood and affect Neuro: alert and oriented Results & Data Results & Data Vital Signs (Past 12 Hours) Vital Signs Temp Pulse Pulse Pulse Resp BP BP 12/16/23 02:42 36.9 C 77 16 126/75 02/15/24 00:00 86 12/15/23 23:21 36.7 C 92 H 13 140/81 12/15/23 19:40 12/15/23 19:12 37.1 C 74 20 133/82 Pulse Ox O2 Del Method 12/16/23 02:42 97 Room Air 12/16/23 00:00 12/15/23 23:21 95 Room Air 12/15/23 19:40 Room Air 12/15/23 19:12 97 Room Air Laboratory Results 12/16/23 07:53 12/16/23 07:53 Resident Activity Tracking Resident Involvement: Resident Care Provided Care Provided: Adult Hospital Medicine
--- NOTE | 2023-12-16 08:29 | Pulmonology Progress Note ---
Date of Service December 16, 2023 Assessment & Plan (1) Pleural effusion: (2) Acute mediastinitis: (3) Streptococcal bacteremia: Plan IMPRESSION: 43-year-old male with no significant past medical history who was admitted with group A strep bacteremia in the setting of cellulitis of the LEFT axilla. Findings with pleural effusion in the setting of mediastinitis prompted pulmonary consultation for thoracentesis and evaluation. RECOMMENDATIONS: 1. Pleural Effusion - LEFT greater than right pleural effusion. Certainly a degree of this can be contributed to his volume status as he is currently +15L. Regardless, would agree with proceeding with thoracentesis with fluid interrogation secondary to underlying concerns of mediastinitis. To be performed by interventional radiology today. Appreciate their help with this. Will review pleural fluid results after completion. 2. Acute mediastinitis - With prior cough as well as some retching vomiting prior to admission. Continue with antibiotic guided management per infectious disease. 3. Streptococcal bacteremia - Second round of blood cultures have seemed to be negative at this point which is encouraging. Continue with antibiotic directed therapy per infectious disease management. Thank you for allowing us to participate in the care of this pleasant patient. Admission and Anticipated Discharge Date Admission Date: December 12, 2023 Supervising Physician Co-Signing Physician Notes I saw and evaluated the patient with Quintin Jarvis PA-C and agree with findings and plan as documented in the note. 43-year-old male was admitted to the hospital for cellulitis, was found to have group A strep with mediastinitis and necrotizing fasciitis Pulmonary consulted for right-sided pleural effusion At the time of examination patient had just returned back from thoracentesis. Approximately 300 mL was removed as per patient's understanding. Patient's was also in the room. He was complaining of hiccups and pain whenever he is having hiccups from likely mediastinitis. Did complain of some pain when he takes deep breaths. Denied any headache, no nausea or vomiting Constitutional: No acute distress HEENT: EOMI, PERRLA Respiratory system: Decreased air entry on the right side, no wheeze, rhonchi, mild crackles bilateral lower lobes CVS: S1-S2 positive, no murmurs or gallops, tachycardia Abdomen: Soft, nontender, nondistended, positive bowel sounds x4 Extremities: +2 pulses bilaterally radialis/ dorsalis pedis, no cyanosis, +2 pitting edema bilateral lower extremity Neuro: Awake alert oriented x3 Psych: Normal mood and affect G/U: No Krause Skin: Erythema appreciated around the left axilla, as well as the left abdomen groin and upper arm, no crepitus Plan: In/out: -2 L Would recommend to continue with diuresis. S/p thoracentesis, follow-up culture and cytology Antibiotics as per infectious disease. Will benefit from incentive spirometry Pain management as per primary team, a dose of Maalox for hiccups. If still does not help then prochlorperazine could be thought of No further recommendation from pulmonary perspective, will sign off Please call directly with any questions Please note the above document was generated using voice recognition software. It may contain grammatical, syntax or spelling errors.Any formal questions or concerns about the content, text or information contained within the body of this dictation should be directly addressed to the provider for clarification. Subjective Patient seen and evaluated at bedside. He complains of hiccups throughout the night. He still has a poor appetite. No complaints of respiratory issues otherwise though. Remained afebrile for most of the night. Review of Systems Review of Systems: Unchanged from prior. Physical Exam Physical Exam: VITAL SIGNS - Vital signs and nursing notes were reviewed. GENERAL - 43-year-old male appearing his stated age who is in no acute distress. Communicates well with provider and answers questions appropriately. LUNGS - Chest wall evaluation demonstrates a normal chest wall A:P diameter. Auscultation reveals clear breath sounds bilaterally. CARDIAC - RRR with S1/S2. No murmur, rubs, or gallops appreciated. ABDOMEN - Abdominal inspection demonstrates a flat abdomen. BS normoactive all four quadrants. No tenderness, palpable masses, or ascites noted. EXTREMITIES - Nail clubbing not present. No peripheral cyanosis. No pretibial edema present. +3/5 radial palpated throughout. PSYCH - A&Ox3 and cooperates fully with examiner. Pt is very pleasant and interacts well with examiner. Results & Data Results & Data Vital Signs (Past 12 Hours) Vital Signs Temp Pulse Pulse Pulse Resp BP Pulse Ox 12/16/23 08:14 37.0 C 95 H 16 147/79 H 95 12/16/23 02:42 36.9 C 77 16 126/75 97 12/16/23 00:00 86 12/15/23 23:21 36.7 C 92 H 13 140/81 95 O2 Del Method 12/16/23 08:14 Room Air 12/16/23 02:42 Room Air 12/16/23 00:00 12/15/23 23:21 Room Air PG Care Time/CCT Total # of Minutes Spent Total Time Spent with Patient: Total time spent is greater than 50% in coordination of care (as documented) at patient's floor/unit and/or counseling patient: Coding Level of Care Code 17331 SUB INP/OBS CARE 2/35MIN Diagnoses Pleural effusion J90 Acute mediastinitis J98.51 Streptococcal bacteremia R78.81; B95.5
[2023-12-16 08:34] LABS: Albumin Globulin Ratio 0.9 (0.9-2); Albumin Level 2.8 gm/dl (3.4-5.0); BUN Creatinine Ratio 21.1 (10-20); Bilirubin,Total 0.8 mg/dl (0.2-1.0); Calcium 7.9 mg/dl (8.6-10.3); Creatinine Clr Calc Pharmacy 167.1 ml/min; Est GFR (African American) 133.2 ml/min; Est GFR (Non-African American) 114.9 ml/min; Potassium 3.5 mmol/L (3.5-5.1); Total Protein 5.8 gm/dl (6.0-8.3)
[2023-12-16 08:41] LABS: INR 1.2 (0.9-1.1); Prothrombin Time 12.8 Seconds (9.0-12.0)
[2023-12-16 08:47] LABS: Hemoglobin 12.3 g/dl (14.0-18.0); Mean Corpuscular Hemoglobin 29.3 pg (25.0-34.0); Mean Corpuscular Hgb Conc 34.2 g/dL (32.0-36.0); Mean Corpuscular Volume 85.7 fL (80.0-100.0); Platelet Count 233 K/uL (130-400); RDW Coefficient of Variation 13.5 % (11.5-14.5); RDW Standard Deviation 42.4 fL (36.4-46.3); White Blood Count 37.18 K/ul (4.8-10.8)
[2023-12-16 08:52] LABS: Basophils # (auto) 0.03 K/uL (0.00-0.20); Basophils % (auto) 0.1 %; Dohle Bodies 2+; Eosinophils # (auto) 0.81 K/uL (0.00-0.50); Eosinophils % (auto) 2.2 %; Immature Granulocytes # (auto) 2.24 K/uL (0.01-0.20); Lymphocytes # (auto) 3.69 K/uL (1.20-3.40); Lymphocytes % (auto) 9.9 %; Monocytes # (auto) 1.74 K/uL (0.11-0.59); Monocytes % (auto) 4.7 %; Neutrophils # (auto) 28.67 K/uL (1.40-6.50); Neutrophils % (auto) 77.1 %; Toxic Granulation 2+
[2023-12-16] MEDS ORDERED: FAMOTIDINE 200 MG/20 ML VIAL IV SCH (09:00)
[2023-12-16] MEDS: POTASSIUM CHLORIDE CRTAB 20 MEQ TABCR PO STA (10:12)
[2023-12-16] MEDS: FAMOTIDINE 20 MG in SYRINGE 3 ML IV SCH (10:20)
[2023-12-16] MEDS: PANTOprazole 40 MG TAB PO SCH (10:21)
--- NOTE | 2023-12-16 10:53 | Infectious Disease Progress Nt ---
Date of Service December 16, 2023 Assessment & Plan (1) Group A streptococcal infection: (2) Necrotizing fasciitis due to Streptococcus pyogenes: (3) Acute mediastinitis: (4) Streptococcal bacteremia: Plan Uri Barrientos is a 43-year-old man with no significant PMH who presents to [facility] on 12/12/23 with left axillary pain, redness, swelling, and fevers, with CT chest showing extensive inflammation in L neck, supraclavicular region, L axilla, chest wall, and with extension into mediastinum. Found to have GAS bacteremia. ID is consulted for L axillary and chest wall SSTI and necrotizing fasciitis, mediastinitis, and GAS bacteremia. 12/14 CT showing increased pleural effusions and somewhat increasing spread of infection through chest wall, as well as mediastinitis. With spreading erythema on 12/15, and rising leukocytosis to 37 on 12/16. With invasive GAS infection c/w necrotizing soft tissue infection (NSTI), and CT showing mediastinitis and pleural effusions. Appears to have started in L axillary region, rather than pharyngeal source although spread into mediastinum is similar to deep neck space infection with concern that necrotizing mediastinitis can rapidly spread. Appreciate surgery following closely. Continues to have rising leukocytosis. Recommend thoracentesis for drainage. If pursuing, would send for cell count, chemistries, protein/LDH, pH, and bacterial/fungal cx. Also would repeat CT imaging. If continued worsening, or if empyema is found, consideration of thoracic surgery evaluation, including potential transfer to tertiary care. Also with GAS bacteremia, thus far repeat BCx from 12/13 are NGTD and 12/13 TTE without evidence of valvular vegetations. Original port of entry may be a puncture wound of his L 2nd finger (was cut on a can, pt later cleaned gutters, finger developed a boil which drained purulent fluid and has since healed. Pt with Tdap 03/2023). Pt with hypotension to 80s/50s in the ED though improved with resuscitation. Also with signs of multiorgan involvement including MICHEAL, worsening plt count, and mildly elevated bilirubin. Together, these could indicative a component of possible GAS-related toxic shock syndrome. Also with pyuria and mild perinephric stranding b/l on CT, UA also with granular casts. Also with desquamation from his tongue, as well as desquamation from the head of his penis, which may be manifestations of Strep TSS. Although GAS likely driving pathogen, with mediastinitis component and thus can remain slightly broader for time being. Discussed with ID pharmacy. Will change to linezolid (maintain GAS anti-toxin effect), ceftriaxone, and metronidazole. No esophageal/GI involvement to suggest empiric yeast coverage for mediastinitis especially given known GAS infection. If improving in coming days, can consider changing to cefazolin to target GAS (or Unasyn if able to do graded trial with allergy)Of note, pts penicillin reaction (rash when baby) is unlikely to be severe and pt very likely to tolerate penicillin per PEN-FAST score of 0-1per allergy evaluation will defer PCN testing and evaluation to outpatient setting. ID Problem List: 1.L axillary and L chest wall SSTI c/f necrotizing fasciitis, mediastinitis 2.GAS bacteremia with c/f GAS-related toxic shock syndrome 3.Acute kidney injury Recommendations: - Continue linezolid (antitoxin) 600 mg PO BID, ceftriaxone 2g IV q24h, and metronidazole 500 mg IV TID ---- If improving in coming days, consider changing to cefazolin to target GAS (or Unasyn if able to do graded trial with allergy. Pts PEN-FAST score is 0-1 which is reassuring.) - Recommend thoracentesis for drainage of pleural effusions. If pursuing, would send for pleural fluid cell count, chemistries, protein/LDH, pH and bacterial/fungal cx - Recommend repeat CT imaging - If continued worsening, or empyema, consideration of thoracic surgery evaluation, and potentially transfer to tertiary care. - Appreciate surgery involvement Admission and Anticipated Discharge Date Admission Date: December 12, 2023 Subjective Subsequent visit was provided via telemedicine using two-way real-time interactive telecommunication between the patient and the telemedicine provider. For the duration of the visit, the provider was performing the assessment from a different facility than the patient. This includesuse of bluetooth stethoscope forauscultationperformed by the telepresenter that the telemedicine provider can hear if described in the physical exam. Wire [facility]her contact information: Please call [facility] . (Phone Number For Physician Use Only) After establishing a telemedicine visit, patient was: Patient was verified with two unique identifiers, Patient/authorized rep acknowledged consent and understanding and Gave permission to continue telehealth session Time Spent with Patient: Subsequent => 35 min - Afebrile this am, WBC increasing to 37 - Plan for thoracentesis today - Yesterday with some desquamation on the head of his penis. Also with white plaquing on tongue earlier this admission, tongue now feels very sensitive - Still having a cough but thinks his chest feels more comfortable than before with deep breathing. Also having prolonged hiccups (for a few hours) Physical Exam Physical Exam: Exam obtained with aid of in-person telepresenter. General: Well-appearing, no acute distress HEENT: Conjunctivae non-injected, sclerae anicteric, MMM, OP clear. Tongue red with slight swelling. Resp: Respirations nonlabored, pt reports improving chest discomfort with deep breaths. Abd: Soft, nontender, nondistended. Back: No tenderness to palpation along spine Ext: Warm and well-perfused, no edema. No joint warmth or effusions noted. L 2nd finger medial aspect with small healing puncture wound, no swelling or erythema, full ROM. Improving erythema of bilateral palms without desquamation. Skin: Improving erythema of L neck, L trapezius, L axilla, and large confluent erythema on L trunk extending from axilla down to inguinal region and into L flank. Does not appear to have spread compared with yesterday. Few erythematous macules on L upper back. Desquamated skin on the head of the penis. Neuro: Alert & interactive. Grossly non-focal. Psych: Pleasant, appropriate. Results & Data Vital Signs (Past 12 Hours) Vital Signs Temp Pulse Pulse Pulse Resp BP Pulse Ox 12/16/23 08:14 37.0 C 95 H 16 147/79 H 95 12/16/23 02:42 36.9 C 77 16 126/75 97 12/16/23 00:00 86 12/15/23 23:21 36.7 C 92 H 13 140/81 95 O2 Del Method 12/16/23 08:14 Room Air 12/16/23 02:42 Room Air 12/16/23 00:00 12/15/23 23:21 Room Air Diagnostic Findings Diagnostics: 12/14 CT chest 1. Significantly motion compromised examination. 2. Again seen is extensive inflammatory change and fluid within the superficial and deep soft tissues of the left lower neck, axilla, chest wall, and left flank. This has somewhat increased from 12/12/2023, with inflammatory change now seen in the right anterior/upper chest wall. This is pathologically indeterminant, and almost certainly infectious in etiology. This likely represents cellulitis. A fasciitis is not excluded. No soft tissue gas is seen and no organized/drainable fluid collection is identified. 3. Inflammation extends into the mediastinum, likely representing mediastinitis. There is also myositis of the left chest wall musculature. 4. Mildly enlarged left supraclavicular, axillary, and mediastinal lymph nodes are likely reactive. 5. Left larger than right pleural effusions with dependent consolidation. These have increased in size from previous. 6. Mild splenomegaly. 6.Additional findings as above. 12/13 TTE: Normal LV size and function, no WMA. No significant valvular abnormalities. 12/13/23 CT C-spine 1. No acute fractures within the cervical spine. 2. Redemonstration of the left lower neck soft tissue edema with mild left lower cervical lymphadenopathy. This is similar to the prior CT examination. This could represent an infectious or inflammatory process. 3. The prevertebral soft tissues are intact. 4. No CT evidence for discitis/osteomyelitis within the cervical spine. 12/12/23 CT Chest FINDINGS: Note is made of extensive fluid and stranding within the left lower neck, supraclavicular region, left axillar and left chest wall. This extends into the left superior mediastinum. Multiple mildly enlarged lymph nodes are probably reactive. A left level 4 cervical lymph node on image 17 of 273 measures 2 x 0.8 cm. A left axillary node measures 1.3 x 1.3 cm. There is asymmetric enlargement of the left pectoralis major and minor muscles as well as the left shoulder and left lower cervical musculature. This also involves the lateral chest wall musculature. No soft tissue gas. No rim-enhancing fluid collection is present. Size of the heart is normal. There is no pericardial eff usion. Trace left pleural effusion is present. There is no consolidation to suggest pneumonia. No areas of bony destruction are present. Visualized portions of the upper abdomen demonstrate mild splenomegaly. There is possible hepatic steatosis. Mild symmetric bilateral perinephric stranding. 1. Extensive inflammation within the left lower neck, supraclavicular region, left axilla and chest wall, extending into the mediastinum. The etiology is not clear however the findings favor an extensive infectious process with cellulitis. Although no soft tissue gas, infectious fasciitis cannot be exc luded. Associated asymmetric enlargement of multiple left-sided muscles, as described above, could represent an infectious myositis. No soft tissue gas. No rim-enhancing fluid collections. 2. Left lower cervical and axillary lymphadenopathy, likely reactive. 3. Trace left pleural effusion. 1.Mild splenomegaly. Micro Summary: 12/15 SpCx: prelim light normal tiffany; stainrare epis, many polys, mod yeast 12/13 HIV: neg 12/13 BCx x2: NGTD 12/12 UCx: <1k 12/12 BCx x2: 4/4 Group A Strep 12/12 respiratory biofire panel neg 12/12 Lyme screen neg 12/12 UA: 10-30 WBCs, 0-4 RBcs, >30 epis, 1-5 granular casts. Antibiotic Summary: linezolid (12/15 present) ceftriaxone (12/15 present) metronidazole (12/14 present) prior daptomycin (12/12 12/14) cefepime (12/12 12/15) clindamycin (12/12 12/15) vancomycin (12/12)
--- NOTE | 2023-12-16 12:28 | XRay Report ---
XR chest 1V not portable CLINICAL HISTORY: s/p left thora COMPARISON STUDY: Chest CT December 14, 2023. FINDINGS: There is no pneumothorax following left thoracentesis. No significant residual pleural effu lenore is identified. Basilar opacities again noted. No evidence for pulmonary edema. Cardiomediastinal silhouette is stable. IMPRESSION: 1. No pneumothorax following left thoracentesis. No residual pleural effusion identified. 2. Persistent left basilar opacity which could reflect consolidation or atelectasis. ACT 112: Negative or not required by law. Electronically signed by: Rubens Becker M.D. 12/16/2023 12:24 PM
[2023-12-16] MEDS: HYDROmorphone INJ 0.5 MG/0.5 ML SYR IV STA (12:48)
[2023-12-16] MEDS: FUROSEMIDE 40 MG/4 ML VIAL IV ONE (12:49)
[2023-12-16 13:21] LABS: Amylase Pleural Fluid < 10 U/L
[2023-12-16 13:27] LABS: Glucose Pleural Fluid 93 mg/dl; LDH Pleural Fluid 481 U/L; Total Protein Pleural Fluid < 3.0 gm/dl
[2023-12-16 13:32] LABS: Appearance Pleural Fluid Cloudy; Color Pleural Fluid Red; RBC Pleural Fluid Auto 62000 /uL; Source Pleural Fluid Left Lung; WBC Pleural Fluid Auto 14128 /uL
[2023-12-16 14:12] LABS: Lymphocytes, Fluid 4 %; Mono,Macrophage,Mesothelial 5 %; Neutrophils, Fluid 91 %
--- NOTE | 2023-12-16 15:06 | Ultrasound Report ---
Ultrasound-guided left thoracentesis INDICATION: Small left pleural effusion COMPARISON: CT chest 12/14/2023 PROCEDURE: Procedure and risks were explained. Informed consent was obtained. A final timeout was com pleted. The left posterior thorax was prepped and draped in sterile fashion. 1% buffered lidocaine wa s utilized for skin anesthesia. Utilizing ultrasound guidance, a 5 Indonesian safety centesis catheter was advanced into the small left p leural effusion. Ultrasound images were obtained. Approximately 300 mL of cloudy johana-colored fluid was removed and sent to the lab for analysis. The catheter was removed and Band-Aid applied. The trevor ent tolerated the procedure well. Vital signs will be monitored on the floor and a chest x-ray will b e obtained post procedure. IMPRESSION: Ultrasound-guided left thoracentesis as detailed above. Performed, dictated, and signed by Manas Frank PA-C; to be co-signed by Dr. Rubens Becker. Electronically signed by: Rubens Becker M.D. 12/16/2023 5:59 PM
--- NOTE | 2023-12-16 16:01 | Surgery Progress Note ---
Date of Service December 16, 2023 Assessment & Plan (1) Acute mediastinitis: Plan: Continues to improve. No surgical issues at this point in time. We will follow along peripherally. Please call if we can be of assistance (2) Sepsis: Admission and Anticipated Discharge Date Admission Date: December 12, 2023 Subjective Patient seen. He had thoracentesis today. He is having some hiccups but otherwise is feeling better and better each day. Physical Exam Constitutional: WD/WN, vitals as above no acute distress and not ill appearing Eyes: PERRL, conjunctivae normal, anicteric sclerae EOM intact bilaterally ENMT: external ear and nose normal, oropharynx normal Ears: no hearing impairment Neck: trachea midline, no thyromegaly Respiratory: normal respiratory effort; no respiratory distress and does not use accessory muscles Cardiovascular: Rate/Rhythm: regular rate and regular rhythm Gastrointestinal (Abdomen): normal bowel sounds, soft, nontender, no hepatosplenomegaly Skin: Decreased redness to the left arm flank and abdomen. Still some blanching but remarkably better today Psychiatric: Orientation: alert, oriented x 3 and cooperative Results & Data Vital Signs (Past 12 Hours) Vital Signs Temp Pulse Resp BP Pulse Ox O2 Del Method 12/16/23 11:23 37.0 C 99 H 16 142/83 H 96 Room Air 12/16/23 08:14 37.0 C 95 H 16 147/79 H 95 Room Air PG Care Time/CCT Total # of Minutes Spent Total Time Spent with Patient: Total time spent is greater than 50% in coordination of care (as documented) at patient's floor/unit and/or counseling patient: Coding Level of Care Code 17134 SUB INP/OBS CARE 25MIN Diagnoses Acute mediastinitis J98.51 Sepsis A41.9
[2023-12-16] MEDS: ALUMINUM/MAGNESIUM SUSP 30 ML UDC PO STA (16:49)
--- NOTE | 2023-12-16 18:09 | Billing Data ---
Date of Service December 16, 2023 Coding Level of Care Code 51107 SUB INP/OBS CARE 3MIN
[2023-12-16] MEDS: ALUMINUM/MAGNESIUM SUSP 30 ML UDC ONE (20:17)
[2023-12-16] MEDS: PROCHLORPERAZINE 5 MG in SYRINGE 4 ML IV ONE (21:14)
[2023-12-17 07:17] LABS: Basophils # (auto) 0.04 K/uL (0.00-0.20); Basophils % (auto) 0.1 %; Dohle Bodies 1+; Eosinophils # (auto) 0.76 K/uL (0.00-0.50); Eosinophils % (auto) 2.5 %; Hematocrit (blood only) 34.2 % (42.0-52.0); Hemoglobin 11.5 g/dl (14.0-18.0); Immature Granulocytes # (auto) 2.48 K/uL (0.01-0.20); Immature Granulocytes % (auto) 8.3 %; Lymphocytes # (auto) 3.52 K/uL (1.20-3.40); Lymphocytes % (auto) 11.8 %; Mean Corpuscular Hemoglobin 29.3 pg (25.0-34.0); Mean Corpuscular Hgb Conc 33.6 g/dL (32.0-36.0); Mean Platelet Volume 9.6 fL (9.4-12.4); Monocytes # (auto) 1.46 K/uL (0.11-0.59); Monocytes % (auto) 4.9 %; Neutrophils # (auto) 21.68 K/uL (1.40-6.50); Neutrophils % (auto) 72.4 %; Platelet Count 273 K/uL (130-400); Polychromasia 1+; RDW Coefficient of Variation 13.9 % (11.5-14.5); RDW Standard Deviation 43.9 fL (36.4-46.3); Red Blood Count 3.93 M/uL (4.70-6.10); Toxic Granulation 3+; White Blood Count 29.94 K/ul (4.8-10.8)
[2023-12-17 07:24] LABS: Albumin Level 2.7 gm/dl (3.4-5.0); BUN Creatinine Ratio 23.2 (10-20); Bilirubin,Total 0.6 mg/dl (0.2-1.0); C Reactive Protein 5.57 mg/dl (0-0.5); Calcium 7.7 mg/dl (8.6-10.3); Est GFR (African American) 134.8 ml/min; Est GFR (Non-African American) 116.3 ml/min; Globulin 2.7 gm/dl (2.5-4.0); Potassium 3.7 mmol/L (3.5-5.1); Total Protein 5.4 gm/dl (6.0-8.3)
--- NOTE | 2023-12-17 11:53 | CT Scan Report ---
CT SCAN OF THE CHEST WITHOUT IV CONTRAST CLINICAL HISTORY: Mediastinitis. COMPARISON STUDY: Chest CT scans dated 12/14/2023 and 12/12/2023 TECHNIQUE: Unenhanced CT scan of the thorax was performed from the thoracic inlet to the upper abdome n. Images are reviewed in the axial, sagittal, and coronal planes. IV contrast was not administered f or this examination. Note that the examination is significant with suboptimal without IV contrast. A dose lowering technique was utilized adhering to the principles of ALARA. The examination is modestl y degraded by motion artifact. CT DOSE: 875.17 mGy.cm FINDINGS: Thyroid: Imaged portions of the thyroid gland are normal in size and attenuation. Thoracic aorta: The thoracic aorta is normal in caliber and demonstrates standard 3-vessel arch anato my. Heart: The heart is normal in size and without pericardial effusion. Lungs and pleural spaces: Evaluation of the lung parenchyma is modestly degraded by motion artifact. A small left pleural effusion with left basilar consolidation is not significantly changed from 2023. A trace right pleural effusion persists. The upper lobe lung parenchyma appears clear. The trac hea and central airways are patent. Lower neck: There are numerous prominent left supraclavicular nodes which measure up to 10 mm in shor t axis. Mediastinum: There is mild infiltration throughout the mediastinum, greatest superiorly and in the pr evascular space. There are prominent subcentimeter mediastinal lymph nodes, and these findings are si milar to previous. Angelina: Not well assessed A contra. Axillae: There are mildly enlarged left axillary and subpectoral lymph nodes which measure up to 13 m m in short axis. No right axillary lymphadenopathy is identified. Upper abdomen: A small hiatal hernia is noted. The liver appears steatotic. The spleen is mildly enla rged measuring 14 cm in length. Skeletal structures: No lytic or blastic bony lesions are seen. Soft tissues: Again seen is significant superficial and deep inflammation and fluid involving the sof t tissues in the left lower neck, the left chest wall, and extending into the left flank/upper abdome n. This appears most improved as compared to 12/14/2023. No soft tissue gas is identified. There is no organized fluid collection to suggest abscess identified on this unenhanced examination. There is mi ld edema within the pectoralis and chest wall musculature suggesting myositis. The left axillary vess els appear patent. IMPRESSION: 1. Suboptimal examination without IV contrast. 2. Again seen is extensive inflammatory change and fluid within the superficial and deep soft tissues of the left lower neck, axilla, chest wall, and left flank. This has modestly improved as compared t o 12/14/2023. This is pathologically indeterminant, and almost certainly infectious in etiology. This likely represents cellulitis. A fasciitis is not excluded. No soft tissue gas is seen and no organiz ed/drainable fluid collection is identified on this unenhanced examination. 3. Inflammation extends into the mediastinum, likely representing mediastinitis. There is also myosit is of the left chest wall musculature. 4. Mildly enlarged left supraclavicular, axillary, and mediastinal lymph nodes are likely reactive an d similar to previous. 5. Left larger than right pleural effusions with dependent consolidation. These have not appreciably changed. 6. Mild splenomegaly. 7. Additional findings as above. ACT 112: Negative or not required by law. Electronically signed by: Tito Figueroa M.D. 12/17/2023 11:52 AM
--- NOTE | 2023-12-17 13:44 | Hospitalist Progress Note ---
Date of Service December 17, 2023 Assessment & Plan (1) Cellulitis of arm, left: Plan: 43 year old male admitted for management of moderate to severe sepsis and lymphangitis with ?mediastinitis ?myositis. Lymphangitis; SIRS SIRs criteria - febrile, tachypneic, tachycardia, hypotension. CT chest with evidence of cellulitis vs lymphangitis vs mediastinitis vs myositis. CT C-Spine without signs of abscess. Patient with red man reaction to vanc. Blood cultures growing pansensitive gram positive GAS. Repeat cx NGTD x48H. TTE negative for vegetations. HIV negative. Surgery on board Patient continues to make obvious clinical improvement. Most likely delayed leukocytosis (which is now downtrending) and appropriate lymphatic drainage to clear the infection presenting as spreading erythema. Spreading erythema and increased pleural effusion could be indicative of exudative effusion. Patient with third spacing likely from fluid resuscitation. Tap consistent with exudative fluid without signs of empyema or fibrosis. Discussed case with Dr. Wong - continue with abx only. Patient did have fever today but suspect may be in part due to atelectasis status post thoracentesis yesterday. Continue to monitor. Blood culture 12/12 - GAS bacteremia, pansensitive Blood cultures 12/13 NGTD x 48H Urine cx 12/12 NGTD Sputum culture 12/15 - Stacey albicans Pleural Fluid 12/16- NGTD Previous antibiotics: cefepime, daptomycin, and clindamycin (anti-toxin) 12/12 - 12/15 Current antibiotics: Rocephin 2 g every 24 hours(12/14), linezolid 600 mg p.o. twice daily(12/15), Flagyl 500 mg every 8 hours IV (12/15) Will discuss outpatient oral antibiotic regimen with ID, it seems that patient is recovering well enough that D/C is a real possibilty in the next day or so assuming continued improvement. Thoracentesis with exudative fluid no indication for CT placement or VATS, continue with current treatment plan Tylenol 650 mg PRN - monitor for fevers ABX adjusted as above Surg, Pulm, and and ID on board - appreciate recs Allergy to f/u outpatient for penicillin challenge Infected Urinalysis: U/A with protein, blood, WBC, bacteria, epithelial cells. No urinary symptoms, may be acute cystitis vs contaminant. Current abx will cover regardless. Repeat UA outpatient as there was proteinuria and hematuria. Hyponatremia (resolved): Na 126 on arrival. Improving. Patient with emesis x24 hours prior to admission - likely related. Now 135. F/E/N/GI: Regular diet. DVT PPx: Heparin SQ q12h Code: Full Dispo: PCU Admission and Anticipated Discharge Date Admission Date: December 12, 2023 Supervising Physician Co-Signing Physician Notes I personally examined the patient and verified all de paz points of history and exam, discussed case, and agree with decision making with Dr Teixeira Overall feeling better. Nausea is betterappetite poor but no nausea or vomiting. Hiccups are very annoying. Otherwise he is feeling overall better and is starting to get up and move around more. Vitals noted, in general he is in no distress and mildly fatigued. HEENT normocephalic atraumatic mucous membranes moist. Redness in his skin is largely resolving. Normal gait. Severe sepsisstrepI suspect lymphangitis and subsequent secondary bacteremia is the main cause; have to assume infectious myositis, but may also be reactive inflammation given that the bulk of the lymphangitis is right next to the pot entially involved muscles clinically does appear to be improving nicely. Mediastinitis seems to mostly be extension of lymphangitis at this point - ongoing abx. Overall showing improvement. Reaccumulation of fluid on CT chest seems most likely to be reactive, he did spike a fever thoughand certainly if the fevers persist we may need to pursue repeat thoracentesis. At the same time his white count, CRP, Pro-Andrés are all improving and his clinical picture otherwise is improving. If he goes 24 hours afebrile, hopefully home on cefpodoxime and metronidazole (metronidazole for a total (IV plus p.o.) of 14 days), cefpodoxime for probably at least a months. Close follow-up. Obviously continue to monitor in the hospital until he is 24 hours afebrile or if his fevers continue to spike, a further source is found. MICHEAL - sec to Sepsis. Improved. Hypontremia - ongoing improvement DVT proph - heparin SQ otherwise as above Subjective Patient seen at bedside this morning. No acute events reported overnight. Continues to feel improvement overall with symptoms. Had thoracentesis yesterday with some sequential hiccuping afterwards but seems to have improved with Protonix/Pepcid. Eating and drinking without difficulty. No other complaints at this time. Review of Systems 2 Review of Systems: as per HPI Physical Exam Physical Exam: Gen: fatigued but improved appearing male in NAD HEENT: AT NC MMM Resp: no increased work of breathing, respiratory rate has slowed to a normal rate CV: clinically well perfused, no edema Abd: non-distended Psych: appropriate mood and affect Neuro: alert and oriented Results & Data Results & Data Vital Signs (Past 12 Hours) Vital Signs Temp Pulse Pulse Resp BP Pulse Ox O2 Del Method 12/17/23 12:38 38.7 C H 98 H 16 151/87 H 96 Room Air 12/17/23 09:00 Room Air 12/17/23 09:00 94 H 12/17/23 07:45 37.5 C 98 H 17 142/89 H 95 Room Air 12/17/23 02:37 37.0 C 87 20 130/78 95 Room Air
--- NOTE | 2023-12-17 15:54 | Infectious Disease Progress Nt ---
Date of Service December 17, 2023 Assessment & Plan (1) Group A streptococcal infection: (2) Necrotizing fasciitis due to Streptococcus pyogenes: (3) Acute mediastinitis: (4) Streptococcal bacteremia: Plan Uri Barrientos is a 43-year-old man with no significant PMH who presents to [facility] on 12/12/23 with left axillary pain, redness, swelling, and fevers, with CT chest showing extensive inflammation in L neck, supraclavicular region, L axilla, chest wall, and with extension into mediastinum. Found to have GAS bacteremia. ID is consulted for L axillary and chest wall SSTI and necrotizing fasciitis, mediastinitis, and GAS bacteremia. 12/14 CT showing increased pleural effusions and somewhat increasing spread of infection through chest wall, myositis, and mediastinitis. S/p L-sided thoracentesis on 12/16 yielding exudative fluid. Repeat CT on 12/17 with overall improved soft tissue infection but continued mediastinitis and myositis, small pleural effusions. Pt again febrile on 12/17. With invasive GAS infection, including with SSTI, myositis, and necrotizing soft tissue infection (NSTI) of the L chest and trunk, as well as mediastinitis and pleural effusions. Appears to have started in L axillary region, rather than pharyngeal source although spread into mediastinum is similar to deep neck space infection with concern that necrotizing mediastinitis can rapidly spread. Appreciate surgery following closely. 12/16 L thoracentesis: pH 7.41, exudative, LDH 481 (serum 288, ULN 244), total protein <3, glucose 93, amylase <10. 14k WBC (91% neutrophils, 4% lymphs, 5% mesos/macros/monos), 62k rbc, red/cloudy. If pt continuing to have persistent fevers or without improvement in leukocytosis, then low threshold for repeat thoracentesis, and low threshold for repeat chest imaging. If continued worsening clinically or on imaging, or empyema, consideration of thoracic surgery evaluation, and potentially transfer to tertiary care. Also with GAS bacteremia, thus far repeat BCx from 12/13 are NGTD and 12/13 TTE without evidence of valvular vegetations. Original port of entry may be a puncture wound of his L 2nd finger (was cut on a can, pt later cleaned gutters, finger developed a boil which drained purulent fluid and has since healed. Pt with Tdap 03/2023). Pt with hypotension to 80s/50s in the ED though improved with resuscitation. Also with signs of multiorgan involvement including MICHEAL, worsening plt count, and mildly elevated bilirubin. Together, these could indicative a component of possible GAS-related toxic shock syndrome. Also with pyuria and mild perinephric stranding b/l on CT, UA also with granular casts. Also with desquamation from his tongue, as well as desquamation from the head of his penis, which may be manifestations of Strep TSS. Although GAS likely driving pathogen, with mediastinitis component and thus can remain slightly broader for time being. Discussed with ID pharmacy. Would continue linezolid (maintain GAS anti-toxin effect), ceftriaxone, and metronidazole. No esophageal/GI involvement to suggest empiric yeast coverage for mediastinitis especially given known GAS infection. 12/15 SpCx with Stacey but would not treat this, as this is likely colonization; no evidence of deeper yeast involvement. If full resolution of fevers and significant improvement of leukocytosis, then may consider a cautious transition to high-dose PO cefpodoxime for a tentative minimum 4-week course. Of note, pts penicillin reaction (rash when baby) is unlikely to be severe and pt very likely to tolerate penicillin per PEN-FAST score of 0-1per allergy evaluation will defer PCN testing and evaluation to outpatient setting. ID Problem List: 1.L axillary and L chest wall SSTI c/f necrotizing fasciitis, mediastinitis 2.GAS bacteremia with c/f GAS-related toxic shock syndrome 3.Acute kidney injury Recommendations: - Continue linezolid (antitoxin) 600 mg PO BID, ceftriaxone 2g IV q24h, and metronidazole 500 mg IV TID. Would favor continuing IV abx for at least 1 week. If fevers resolve, then can stop linezolid but continue ceftriaxone and metronidazole. - If pt continuing to have persistent fevers or without improvement in leukocyt osis, then low threshold for repeat thoracentesis, and low threshold for repeat chest imaging. If continued worsening clinically or on imaging, or empyema, consideration of thoracic surgery evaluation, and potentially transfer to tertiary care. - If continued improvement in the coming days including full resolution of fevers and significant improvement of leukocytosis, and will be discharging, then: ---- Change abx to cefpodoxime 400 mg PO BID to complete a tentative 4-week minimum course (12/1201/08/24), with low threshold to extend duration ---- Would recommend close follow-up with PCP, and consider weekly labs, and a CT chest in ~2 weeks, with consideration of CT chest in ~4 weeks prior to tentative EOT. ----Close return precautions counseling to return for worsening fevers, chest pain, or any concerning new symptoms. Low threshold to return to hospital and restart IV abx if having worsening labs or radiographic findings. - Appreciate surgery involvement - Pt to follow with allergy for outpatient PCN testing - F/u 12/16 pleural fluid Cx ID will continue to follow, but does not monitor the chart or round over the weekend; covering physician can be contacted at [phone] ([facility]) for telephonic consultation if needed. Dr. Evelin Frank will resume care of the ID service on Wednesday. Juanita Nicholson MD, S Infectious Diseases Admission and Anticipated Discharge Date Admission Date: December 12, 2023 Subjective Subsequent visit was provided via telemedicine using two-way real-time interactive telecommunication between the patient and the telemedicine provider. For the duration of the visit, the provider was performing the assessment from a different facility than the patient. This includesuse of bluetooth stethoscope forauscultationperformed by the telepresenter that the telemedicine provider can hear if described in the physical exam. Compensation And Benefits Advisor contact information: Please call [facility] [phone]. (Phone Number For Physician Use Only) After establishing a telemedicine visit, patient was: Patient was verified with two unique identifiers, Patient/authorized rep acknowledged consent and understanding and Gave permission to continue telehealth session Time Spent with Patient: Subsequent => 55 min - Afebrile, this AM, WBC slightly improved to 30 - Underwent L thoracentesis yesterday: pH 7.41, exudative, LDH 481 (serum 288, ULN 244), total protein <3, glucose 93, amylase <10. 14k WBC (91% neutrophils, 4% lymphs, 5% mesos/macros/monos), 62k rbc, red/cloudy. TGs and cholesterol pending. Pleural fluid Cx: pending; Gram stain: many polys, no organisms. - CT chest from 12/17 with slightly improved soft tissue swelling, continuing to show small L pleural effusion, myositis and mediastinitis - In afternoon, fever to T38.7 Physical Exam Physical Exam: Exam obtained with aid of in-person telepresenter. General: Well-appearing, no acute distress HEENT: Conjunctivae non-injected, sclerae anicteric, MMM, OP clear. Resp: Respirations nonlabored. Abd: Soft, nontender, nondistended. Ext: No joint warmth or effusions noted. L 2nd finger medial aspect with small healing puncture wound, no swelling or erythema, full ROM. Improving erythema of bilateral palms without desquamation. Skin: Improving erythema of L neck, L trapezius, L axilla, and large confluent erythema on L trunk extending from axilla down to inguinal region and into L flank. Does not appear to have spread. Few erythematous macules on L upper back. Neuro: Alert & interactive. Grossly non-focal. Psych: Pleasant, appropriate. Results & Data Vital Signs (Past 12 Hours) Vital Signs Temp Pulse Pulse Resp BP Pulse Ox O2 Del Method 12/17/23 15:23 37.8 C H 109 H 18 133/83 94 Room Air 12/17/23 12:38 38.7 C H 98 H 16 151/87 H 96 Room Air 12/17/23 09:00 Room Air 12/17/23 09:00 94 H 12/17/23 07:45 37.5 C 98 H 17 142/89 H 95 Room Air Diagnostic Findings Diagnostics: 12/17 CT Chest 1. Suboptimal examination without IV contrast. 2. Again seen is extensive inflammatory change and fluid within the superficial and deep soft tissues of the left lower neck, axilla, chest wall, and left flank. This has modestly improved as compared to 12/14/2023. This is pathologically indeterminant, and almost certainly infectious in etiology. This likely represents cellulitis. A fasciitis is not excluded. No soft tissue gas is seen and no organized/drainable fluid collection is identified on this unenhanced examination. 3. Inflammation extends into the mediastinum, likely representing mediastinitis. There is also myositis of the left chest wall musculature. 4. Mildly enlarged left supraclavicular, axillary, and mediastinal lymph nodes are likely reactive and similar to previous. 5. Left larger than right pleural effusions with dependent consolidation. These have not appreciably changed. 6. Mild splenomegaly. 7. Additional findings as above. 12/16 CXR 2.No pneumothorax following left thoracentesis. No residual pleural effusion identified. 3.Persistent left basilar opacity which could reflect consolidation or atelecta sis. 12/14 CT chest 1. Significantly motion compromised examination. 2. Again seen is extensive inflammatory change and fluid within the superficial and deep soft tissues of the left lower neck, axilla, chest wall, and left flank. This has somewhat increased from 12/12/2023, with inflammatory change now seen in the right anterior/upper chest wall. This is pathologically indeterminant, and almost certainly infectious in etiology. This likely represents cellulitis. A fasciitis is not excluded. No soft tissue gas is seen and no organized/drainable fluid collection is identified. 3. Inflammation extends into the mediastinum, likely representing mediastinitis. There is also myositis of the left chest wall musculature. 4. Mildly enlarged left supraclavicular, axillary, and mediastinal lymph nodes are likely reactive. 5. Left larger than right pleural effusions with dependent consolidation. These have increased in size from previous. 6. Mild splenomegaly. 5.Additional findings as above. 12/13 TTE: Normal LV size and function, no WMA. No significant valvular abnormalities. 12/13/23 CT C-spine 1. No acute fractures within the cervical spine. 2. Redemonstration of the left lower neck soft tissue edema with mild left lower cervical lymphadenopathy. This is similar to the prior CT examination. This could represent an infectious or inflammatory process. 3. The prevertebral soft tissues are intact. 4. No CT evidence for discitis/osteomyelitis within the cervical spine. 12/12/23 CT Chest FINDINGS: Note is made of extensive fluid and stranding within the left lower neck, supraclavicular region, left axillar and left chest wall. This extends into the left superior mediastinum. Multiple mildly enlarged lymph nodes are probably reactive. A left level 4 cervical lymph node on image 17 of 273 measures 2 x 0.8 cm. A left axillary node measures 1.3 x 1.3 cm. There is asymmetric enlargement of the left pectoralis major and minor muscles as well as the left shoulder and left lower cervical musculature. This also involves the lateral chest wall musculature. No soft tissue gas. No rim-enhancing fluid collection is present. Size of the heart is normal. There is no pericardial effusion. Trace left pleural effusion is present. There is no consolidation to suggest pneumonia. No areas of bony destruction are present. Visualized portions of the upper abdomen demonstrate mild splenomegaly. There is possible hepatic steatosis. Mild symmetric bilateral perinephric stranding. 1. Extensive inflammation within the left lower neck, supraclavicular region, left axilla and chest wall, extending into the mediastinum. The etiology is not clear however the findings favor an extensive infectious process with cellulitis. Although no soft tissue gas, infectious fasciitis cannot be exclude d. Associated asymmetric enlargement of multiple left-sided muscles, as described above, could represent an infectious myositis. No soft tissue gas. No rim-enhancing fluid collections. 2. Left lower cervical and axillary lymphadenopathy, likely reactive. 3. Trace left pleural effusion. 1.Mild splenomegaly. Micro Summary: 2/15 L thoracentesis: pH 7.41, exudative, LDH 481 (serum 288, ULN 244), total protein <3, glucose 93, amylase <10. 14k WBC (91% neutrophils, 4% lymphs, 5% mesos/macros/monos), 62k rbc, red/cloudy. TGs and cholesterol pending. - Pleural fluid Cx: pending; Gram stain: many polys, no organisms. 12/15 SpCx: prelim light normal tiffany, C. albicans/dubliniensis; stainrare epis, many polys, mod yeast 12/13 HIV: neg 12/13 BCx x2: NGTD 12/12 UCx: <1k 12/12 BCx x2: 4/4 Group A Strep 12/12 respiratory biofire panel neg 12/12 Lyme screen neg 12/12 UA: 10-30 WBCs, 0-4 RBcs, >30 epis, 1-5 granular casts. Antibiotic Summary: linezolid (12/15 present) ceftriaxone (12/15 present) metronidazole (12/14 present) prior daptomycin (12/12 12/14) cefepime (12/12 12/15) clindamycin (12/12 12/15) vancomycin (12/12)
--- NOTE | 2023-12-17 18:28 | Billing Data ---
Date of Service December 17, 2023 Coding Level of Care Code 72593 SUB INP/OBS CARE MIN
--- NOTE | 2023-12-17 18:28 | Billing Data ---
Date of Service December 17, 2023 Coding Level of Care Code 95729 SUB INP/OBS CARE MIN
[2023-12-17] MEDS: FUROSEMIDE INJ 20 MG/2 ML VIAL IV ONE (19:54)
--- NOTE | 2023-12-18 08:49 | Hospitalist Progress Note ---
Date of Service December 18, 2023 Assessment & Plan (1) Cellulitis of arm, left: Plan: 43 year old male admitted for management of moderate to severe sepsis and lymphangitis with ?mediastinitis ?myositis. Sepsis secondary to lymphangitis/myositis with bacteremia -CT chest with evidence of cellulitis vs lymphangitis vs mediastinitis vs myositis -CT C-Spine without signs of abscess -Blood cultures growing pansensitive gram positive GAS. Repeat BCx NGTD x48h -UCx NGTD -Sputum Cx 12/15 growing no albicans -Thoracentesis 12/16 -Pleural Cx NGTD -Exudative fluid w/o signs of empyema -TTE negative for vegetations -Antibiotic regimen -Previous abx- cefepime, daptomycin, and clindamycin (anti-toxin) 12/12 - 12/15 -Currently Rocephin 2g IV daily (12/14), linezolid 600 mg BID (12/15), Flagyl 500 mg IV TID (12/15) -Tylenol PRN fever -Noted increase in leukocytosis 27 -> 33, CRP 5 -> 9 and 2x fevers in <12 hours overnight. Likely indicates worsening infection with suspected source as cellulitis/lymphangitis containing possible abscess -Repeat imaging to be ordered- US vs CT, will discuss with radiology. May need surgical intervention for source control -Repeat BCx ordered. If positive, will need KIMO for endocarditis evaluation -Deferring pseudomonal coverage for now Infected Urinalysis U/A with protein, blood, WBC, bacteria, epithelial cells. No urinary symptoms, may be acute cystitis vs contaminant. Current abx will cover regardless Hyponatremia -Na 126 on arrival -Improved to 135 and now down to 131 -Monitor BMP F/E/N/GI: Regular diet. DVT PPx: Heparin SQ q12h Code: Full Dispo: PCU Admission and Anticipated Discharge Date Admission Date: December 12, 2023 Supervising Physician Co-Signing Physician Notes I personally examined the patient and verified all de paz points of history and exam, discussed case, and agree with decision making with Dr Alvarado left armpit a little bit more swollen and painful. Left shoulder/area above his shoulder in between his neck good bit more full a good bit more swollen and painful. Had more fevers. Vitals noted, in general he is awake and alert pleasant no distress. HEENT normocephalic atraumatic mucous membranes moist. He has a new significantly larger fullness sort of in his left supraclavicular region, almost where his lateral portion of the trapezius muscle runs, its mildly erythematous it is not very hot, it is reasonably tender. His left axilla is also about as firm as yesterday, may be slightly more firm, but is more tender, and somewhat tender across his lateral upper chest wall. There is no fluctuance or crepitus anywhere and no discretely palpable fluid collection. Severe sepsisstrepI suspect lymphangitis and subsequent secondary bacteremia is the main cause; have to assume infectious myositis, but may also be reactive inflammation given that the bulk of the lymphangitis is right next to the potentially involved muscles clinically does appear to be improving nicely. Mediastinitis seems to mostly be extension of lymphangitis at this point - ongoing abx. Was showing improvement. Fortunately clinically still very stable, but his fever curve, white count, and CRP are now headed back in the wrong direction. It does not appear that he has a new problem, I am much more suspicious of "fall out" from the strep infection that may require source controlmain differential for this being the soft tissue that is more full and tender in his left supraclavicular/axillary region, but certainly also have to be suspicious of his pleural fluid, far less likely but repeating blood cultures to ensure there is no late findings more consistent with endocarditis (which thus far he has not shown evidence of), and of course vigilance for any other areas that could have become a secondary site of infectionbut he shows no other new symptoms. Discussed with radiology and general surgeryGeneral surgery evaluated, ultrasound ordered. Continue current antibiotics for now. MICHEAL - sec to Sepsis. Improved. Hypontremia - ongoing improvement DVT proph - heparin SQ otherwise as above Subjective Acute events overnight- none. Pt examined at bedside. Did have fevers to 38.0 C and 38.1 C at 8 PM last night and around 8 AM this morning for which he received Tylenol and they resolved. Reports feeling better aside from some moderate L chest/axillary pain and neck/supraclavicular pain. He notes these areas are more tender than before. Review of Systems Review of Systems: as per HPI Physical Exam Physical Exam: Gen: well appearing male in NAD HEENT: AT OR MMM Resp: CTAB, no increased work of breathing, no crackles or wheezes CV: RRR, normal S1 and S2, clinically well perfused, no edema Abd: non-distended, nontender Psych: appropriate mood and affect Neuro: alert and oriented MSK: indurated skin with faint erythema of L axilla + lateral border of L pectoral muscle, also seen along L SCM to deltoid along supraclavicular space. Areas are warm to touch, edematous and tender. Results & Data Results & Data Vital Signs (Past 12 Hours) Vital Signs Temp Pulse Pulse Pulse Resp BP Pulse Ox 12/18/23 07:21 38.0 C H 99 H 17 127/83 95 12/18/23 02:55 37.2 C 95 H 18 133/86 96 12/18/23 00:46 37.1 C 94 H 18 115/79 95 12/17/23 23:00 37 C 79 18 109/67 92 12/17/23 22:07 12/17/23 22:05 98 H O2 Del Method 12/18/23 07:21 Room Air 12/18/23 02:55 Room Air 12/18/23 00:46 Room Air 12/17/23 23:00 Room Air 12/17/23 22:07 Room Air 12/17/23 22:05 Resident Activity Tracking Resident Involvement: Resident Care Provided Care Provided: Adult Hospital Medicine
[2023-12-18 09:56] LABS: Hematocrit (blood only) 34.1 % (42.0-52.0); Hemoglobin 11.4 g/dl (14.0-18.0); Mean Corpuscular Hgb Conc 33.4 g/dL (32.0-36.0); Mean Corpuscular Volume 86.8 fL (80.0-100.0); Mean Platelet Volume 9.6 fL (9.4-12.4); Platelet Count 330 K/uL (130-400); Red Blood Count 3.93 M/uL (4.70-6.10); White Blood Count 32.94 K/ul (4.8-10.8)
[2023-12-18 10:07] LABS: Albumin Globulin Ratio 0.9 (0.9-2); Albumin Level 2.7 gm/dl (3.4-5.0); BUN Creatinine Ratio 20.8 (10-20); Bilirubin,Total 0.6 mg/dl (0.2-1.0); C Reactive Protein 9.38 mg/dl (0-0.5); Calcium 7.5 mg/dl (8.6-10.3); Creatinine Clr Calc Pharmacy 161.4 ml/min; Est GFR (African American) 132.4 ml/min; Est GFR (Non-African American) 114.3 ml/min; Potassium 3.6 mmol/L (3.5-5.1); Total Protein 5.7 gm/dl (6.0-8.3)
[2023-12-18 10:15] LABS: Basophils # (auto) 0.05 K/uL (0.00-0.20); Basophils % (auto) 0.2 %; Eosinophils # (auto) 0.18 K/uL (0.00-0.50); Eosinophils % (auto) 0.5 %; Immature Granulocytes # (auto) 2.81 K/uL (0.01-0.20); Immature Granulocytes % (auto) 8.5 %; Lymphocytes # (auto) 2.57 K/uL (1.20-3.40); Lymphocytes % (auto) 7.8 %; Monocytes % (auto) 5.5 %; Neutrophils # (auto) 25.53 K/uL (1.40-6.50); Neutrophils % (auto) 77.5 %; Polychromasia 1+; Toxic Granulation 1+
--- NOTE | 2023-12-18 14:43 | Billing Data ---
Date of Service December 18, 2023 Coding Level of Care Code 63868 SUB INP/OBS CARE MIN
--- NOTE | 2023-12-18 15:09 | Surgery Progress Note ---
Date of Service December 18, 2023 Assessment & Plan (1) Group A streptococcal infection: Plan: . He appears to have developed a severe group A strep infection with bacteremia, mediastinitis, and extensive cellulitis. While the cellulitis does appear to be improving, he now has increasing swelling in his left supraclavicular and left anterior axillary line regions. Yesterday CT scan did not show any evidence of gas producing organisms. There was no drainable fluid. Clinically there is no evidence of crepitus. As the erythema is overall improving, I do not think that this is necrotizing fasciitis. Given the extensive amount of cellulitic change, we discussed that it would be difficult to know where to make an incision where we did plan on some type of operative intervention. For the left supraclavicular and left axillary fullness, I would recommend an ultrasound to be done in order to ensure that there is no drainable fluid and that what is being felt is adenopathy. Should there be drainable fluid, then he and I can discuss incision and drainage. This was discussed with Dr. Kline. Thank you Admission and Anticipated Discharge Date Admission Date: December 12, 2023 Subjective We were asked to see this 43-year-old gentleman who has been admitted with cellulitis and mediastinitis from group a strep. He was improving significantly but overnight has noted and slight increase in leukocytosis. In addition to this, he has developed more left supraclavicular swelling and some muscle soreness or tightness with movements. He did have a CT scan on December 17 which showed extensive inflammation of the muscle layer. There was subcutaneous edema consistent with cellulitis. There was no evidence of any gas. Within the muscle or above the muscle. There was no evidence of any drainable fluid. It did show adenopathy in the supraclavicular and axillary regions. He notes that his trunk cellulitis does appear to be slowly improving. The redness has lessened significantly since admission. He was about to be discharged yesterday but then developed these slightly increased symptoms. Physical Exam Constitutional: WD/WN, vitals as above Skin: no drainable fluid, no crepitus. Left flank cellulitis/ erythema is fading and receding from the drawn lines. Left supraclavicular fullness with a 4 cm rounded area, ? enlarged node. 2-3 cm of firmness along the left anterior axillary line - no fluctuance. Neurologic: awake; no focal motor deficits Psychiatric: A+Ox3, euthymic affect Results & Data Vital Signs (Past 12 Hours) Vital Signs Temp Pulse Pulse Resp BP Pulse Ox O2 Del Method 12/18/23 12:55 36.9 C 97 H 18 120/72 97 Room Air 12/18/23 10:00 Room Air 12/18/23 07:21 38.0 C H 99 H 17 127/83 95 Room Air Laboratory Results blood cultures had grown group A strep Diagnostic Findings CT SCAN OF THE CHEST WITHOUT IV CONTRAST CLINICAL HISTORY: Mediastinitis. COMPARISON STUDY: Chest CT scans dated 12/14/2023 and 12/12/2023 TECHNIQUE: Unenhanced CT scan of the thorax was performed from the thoracic inlet to the upper abdomen. Images are reviewed in the axial, sagittal, and coronal planes. IV contrast was not administered for this examination. Note that the examination is significant with suboptimal without IV contrast. A dose lowering technique was utilized adhering to the principles of ALARA. The examination is modestly degraded by motion artifact. CT DOSE: 875.17 mGy.cm FINDINGS: Thyroid: Imaged portions of the thyroid gland are normal in size and attenuation. Thoracic aorta: The thoracic aorta is normal in caliber and demonstrates standard 3-vessel arch anatomy. Heart: The heart is normal in size and without pericardial effusion. Lungs and pleural spaces: Evaluation of the lung parenchyma is modestly degraded by motion artifact. A small left pleural effusion with left basilar consolidation is not significantly changed from 12/16/2023. A trace right pleural effusion persists. The upper lobe lung parenchyma appears clear. The trachea and central airways are patent. Lower neck: There are numerous prominent left supraclavicular nodes which measure up to 10 mm in short axis. Mediastinum: There is mild infiltration throughout the mediastinum, greatest superiorly and in the prevascular space. There are prominent subcentimeter mediastinal lymph nodes, and these findings are similar to previous. Angelina: Not well assessed A contra. Axillae: There are mildly enlarged left axillary and subpectoral lymph nodes which measure up to 13 mm in short axis. No right axillary lymphadenopathy is identified. Upper abdomen: A small hiatal hernia is noted. The liver appears steatotic. The spleen is mildly enlarged measuring 14 cm in length. Skeletal structures: No lytic or blastic bony lesions are seen. Soft tissues: Again seen is significant superficial and deep inflammation and fluid involving the soft tissues in the left lower neck, the left chest wall, and extending into the left flank/upper abdomen. This appears most improved as compared to 12/14/2023. No soft tissue gas is identified. There is no organized fluid collection to suggest abscess identified on this unenhanced examination. There is mild edema within the pectoralis and chest wall musculature suggesting myositis. The left axillary vessels appear patent. IMPRESSION: 1. Suboptimal examination without IV contrast. 2. Again seen is extensive inflammatory change and fluid within the superficial and deep soft tissues of the left lower neck, axilla, chest wall, and left flank. This has modestly improved as compared to 12/14/2023. This is pathologically indeterminant, and almost certainly infectious in etiology. This likely represents cellulitis. A fasciitis is not excluded. No soft tissue gas is seen and no organized/drainable fluid collection is identified on this unenhanced examination. 3. Inflammation extends into the mediastinum, likely representing mediastinitis. There is also myositis of the left chest wall musculature. 4. Mildly enlarged left supraclavicular, axillary, and mediastinal lymph nodes are likely reactive and similar to previous. 5. Left larger than right pleural effusions with dependent consolidation. These have not appreciably changed. 6. Mild splenomegaly. 7. Additional findings as above.
--- NOTE | 2023-12-18 15:10 | Ultrasound Report ---
US axilla LT HISTORY: 43 years-old Male sepsis, swelling acute pain and swelling of the left axilla COMPARISON: Chest CT 12/17/2023 TECHNIQUE: Multiple real-time sonographic images of the left axilla soft tissues were obtained assess ing grayscale appearance and color flow FINDINGS/IMPRESSION: There is persistent intramuscular, subcutaneous and deep tissue edema within the left axilla. No drai nable fluid collections and no pathologically enlarged lymph nodes identified by ultrasound. ACT 112: Negative or not required by law. The above report was generated using voice recognition software. It may contain grammatical, syntax o r spelling errors. Electronically signed by: Milo Davis M.D. 12/18/2023 3:09 PM
--- NOTE | 2023-12-18 15:23 | Ultrasound Report ---
US soft tissue neck HISTORY: 43 years-old Male supraclavicular region dx sepsis, swelling acute left-sided chest pain COMPARISON: Axillary ultrasound the same day, chest CT 12/17/2023 TECHNIQUE: Multiple real-time sonographic images of the left axillary supraclavicular tissues were ob tained assessing grayscale appearance and color flow. FINDINGS/IMPRESSION: There is persistent extensive subcutaneous, and deep tissue edema within the imaged tissues of the le ft chest/supraclavicular tissues along with supraclavicular lymphadenopathy measuring up to 1.4 x 0.8 x 1.1 cm. No drainable fluid collections. ACT 112: Negative or not required by law. The above report was generated using voice recognition software. It may contain grammatical, syntax o r spelling errors. Electronically signed by: Milo Davis M.D. 12/18/2023 3:22 PM
[2023-12-18] MEDS: CEFEPIME 2,000 MG in SYRINGE 0 ML IV SCH (16:22)
--- NOTE | 2023-12-18 17:18 | Billing Data ---
Date of Service December 18, 2023 Coding Level of Care Code 21199 SUB INP/OBS CARE MIN
[2023-12-19 05:51] LABS: Hematocrit (blood only) 31.8 % (42.0-52.0); Hemoglobin 10.9 g/dl (14.0-18.0); Mean Corpuscular Hemoglobin 29.6 pg (25.0-34.0); Mean Corpuscular Hgb Conc 34.3 g/dL (32.0-36.0); Mean Corpuscular Volume 86.4 fL (80.0-100.0); Mean Platelet Volume 9.5 fL (9.4-12.4); Platelet Count 363 K/uL (130-400); RDW Coefficient of Variation 14.1 % (11.5-14.5); RDW Standard Deviation 43.9 fL (36.4-46.3); Red Blood Count 3.68 M/uL (4.70-6.10); White Blood Count 28.71 K/ul (4.8-10.8)
[2023-12-19 05:54] LABS: Albumin Globulin Ratio 0.8 (0.9-2); Albumin Level 2.7 gm/dl (3.4-5.0); BUN Creatinine Ratio 16.7 (10-20); Bilirubin,Total 0.6 mg/dl (0.2-1.0); C Reactive Protein 10.01 mg/dl (0-0.5); Calcium 7.6 mg/dl (8.6-10.3); Creatinine Clr Calc Pharmacy 161.4 ml/min; Est GFR (African American) 132.4 ml/min; Est GFR (Non-African American) 114.3 ml/min; Globulin 3.2 gm/dl (2.5-4.0); Potassium 4.4 mmol/L (3.5-5.1); Total Protein 5.9 gm/dl (6.0-8.3)
[2023-12-19 06:37] LABS: Basophils # (auto) 0.15 K/uL (0.00-0.20); Basophils % (auto) 0.5 %; Eosinophils # (auto) 0.19 K/uL (0.00-0.50); Eosinophils % (auto) 0.7 %; Immature Granulocytes # (auto) 2.53 K/uL (0.01-0.20); Immature Granulocytes % (auto) 8.8 %; Lymphocytes # (auto) 2.51 K/uL (1.20-3.40); Lymphocytes % (auto) 8.7 %; Monocytes # (auto) 1.68 K/uL (0.11-0.59); Monocytes % (auto) 5.9 %; Neutrophils # (auto) 21.65 K/uL (1.40-6.50); Neutrophils % (auto) 75.4 %; Polychromasia 1+
--- NOTE | 2023-12-19 09:32 | Hospitalist Progress Note ---
Date of Service December 19, 2023 Assessment & Plan (1) Cellulitis of arm, left: Plan: 43 year old male admitted for management of moderate to severe sepsis and lymphangitis with ?mediastinitis ?myositis. Sepsis secondary to lymphangitis/myositis with GAS bacteremia -CT chest with evidence of cellulitis vs lymphangitis vs mediastinitis vs myositis -CT C-Spine without signs of abscess -Blood cultures growing pansensitive gram positive GAS. Repeat BCx NGTD x48h -UCx NGTD -Sputum Cx 12/15 growing no albicans -Thoracentesis 12/16 -Pleural Cx NGTD -Exudative fluid w/o signs of empyema -TTE negative for vegetations -Antibiotic regimen -Previous abx- cefepime, daptomycin, and clindamycin (anti-toxin) 12/12 - 12/15 -Rocephin (12/14) expanded to cefepime (12/18), linezolid 600 mg BID (12/15), Flagyl 500 mg IV TID (12/15) -Tylenol PRN fever -Noted WBC rise 27 -> 33 -> 28, CRP 5 -> 9 -> 10 over past 48 hours including 2x fevers in <12 hours overnight on 12/18 -Repeat US 12/18- L axillary intramuscular/subcutaneous/deep tissue edema w/o drainable collection or LAD -Repeat US 12/18- L supraclavicular subcutaneous/deep tissue edema with LAD 1.4 x 0.8 x 1.1 cm -Repeat BCx from 12/18 pending. If positive, will need KIMO for endocarditis evaluation -General surgery consulted and following- no surgical intervention planned as of present -Ceftriaxone expanded to cefepime after US findings resulted -Peripheral smear pending to evaluate for malignancy given supraclavicular LAD -Afebrile since 4 PM on 12/18 -Will need ID input on 12/20 regarding antibiotics for discharge- may need p seudomonal coverage given his tenuous/unclear course, awaiting recommendations Acute watery diarrhea -Noted onset on 12/18 -While more likely to be antibiotic associated diarrhea, will obtain C. difficile testing Infected Urinalysis U/A with protein, blood, WBC, bacteria, epithelial cells. No urinary symptoms, may be acute cystitis vs contaminant. Current abx will cover regardless Hyponatremia -Na 126 on arrival -Initially improved but now decreasing once again, Na 131 today -Encourage continued solute intake + oral hydration -Monitor BMP F/E/N/GI: Regular diet. DVT PPx: Heparin SQ q12h Code: Full Dispo: PCU Admission and Anticipated Discharge Date Admission Date: December 12, 2023 Supervising Physician Co-Signing Physician Notes I personally examined the patient and verified all de paz points of history and exam, discussed case, and agree with decision making with Dr Alvarado Feeling better again. No fevers since yesterday. Left supraclavicular swelling has improved a lot, armpit about the same but definitely not worse. Answered all questions the best my ability and to his/'s satisfaction. Vitals noted, in general he is awake and alert pleasant no distress. HEENT normocephalic atraumatic mucous membranes moist. Breathing unlabored no accessory muscle use good effort. Left supraclavicular swelling has surprisingly largely resolved its nontender. Left armpit and lateral pectoralis region examined almost identical to yesterdaynot nearly as firm swollen or tender in his axilla than before and the week, but about identical to yesterday (mildly firm mildly tender to deep palpation, hard to tell discrete fullness, lateral pack region mildly firm and full and tender almost identical to the yesterday) Severe sepsisstrepI suspect lymphangitis and subsequent secondary bacteremia is the main cause; have to assume infectious myositis, but may also be reactive inflammation given that the bulk of the lymphangitis is right next to the potentially involved muscles was improving quite nicely and then suddenly yesterday had a setback with recurrence of temperatures, slight increase in white count and CRP, and marked increase in left supraclavicular adenopathyfortunately nothing surgical, increased antibiotic coverage back to cefepime and improved already. Discussed with patient and that this does create a little bit of a conundrum, given his marked improvement on the cefepime (not just his temperature and white count, but clinically the nightandday change of his supraclavicular adenopathy) certainly have to consider that polymicrobial including more resistant gram-negatives may have been at play; at the same time, improvement after 1 dose of cefepime does leave me wondering if this was not just a waxing and waning because he had been so septic. this complicates discharge abx choice a bit - will need to follow his progress and d/w ID prior to dc. has excellent PCP and therefore close f/u (and the ability to readjust course if needed) does take some risk out of the decision making, however. MICHEAL - sec to Sepsis. Improved. Hypontremia - due to infection DVT proph - heparin SQ otherwise as above discussed case w oncoming attending physician, [facility] residents coming back on service are familiar with his care; reached out to PCP to update for f/u Subjective Acute events overnight- none. Pt examined at bedside. He has not had a fever since 4 PM on 12/18. Reports little change in his swelling and pain from axilla to supraclavicular area. Review of Systems Review of Systems: as per HPI Physical Exam Physical Exam: Gen: well appearing male in NAD HEENT: AT NC MMM Resp: CTAB, no increased work of breathing, no crackles or wheezes CV: RRR, normal S1 and S2, clinically well perfused, no edema Abd: non-distended, nontender Psych: appropriate mood and affect Neuro: alert and oriented MSK: indurated skin with faint erythema of L axilla + lateral border of L pectoral muscle, also seen along L SCM to trapezius to edge of deltoid along supraclavicular space. Areas are warm to touch, edematous and tender though mildly improved from day prior Results & Data Results & Data Vital Signs (Past 12 Hours) Vital Signs Temp Pulse Pulse Pulse Resp BP BP 12/19/23 09:01 100 H 12/19/23 07:41 37.3 C 92 H 16 126/82 12/19/23 03:10 37.3 C 98 H 18 125/77 12/19/23 00:12 12/18/23 22:48 36.6 C 93 H 18 138/75 12/18/23 21:58 94 H Pulse Ox O2 Del Method 12/19/23 09:01 12/19/23 07:41 94 Room Air 12/19/23 03:10 96 Room Air 12/19/23 00:12 Room Air 12/18/23 22:48 95 Room Air 12/18/23 21:58 Resident Activity Tracking Resident Involvement: Resident Care Provided Care Provided: Adult Hospital Medicine
--- NOTE | 2023-12-19 15:15 | Billing Data ---
Date of Service December 19, 2023 Coding Level of Care Code 77457 SUB INP/OBS CARE MIN
--- NOTE | 2023-12-20 06:52 | Hospitalist Progress Note ---
Date of Service December 20, 2023 Assessment & Plan (1) Cellulitis of arm, left: Plan: 43 year old male admitted for management of moderate to severe sepsis and lymphangitis with mediastinitis ?myositis with repeat imaging showing concern for myonecrosis. Sepsis secondary to lymphangitis/myositis with GAS bacteremia CT chest with evidence with lymphangitis, mediastinitis, and myositis. CT C- Spine without signs of abscess. -Blood cultures growing pansensitive gram positive GAS. Repeat BCx NGTD x48h -Sputum Cx 12/15 growing no albicans -Thoracentesis 12/16 -Pleural Cx NGTD -Exudative fluid w/o signs of empyema -TTE negative for vegetations -Antibiotic regimen -Previous abx- cefepime, daptomycin, and clindamycin (anti-toxin) 12/12 - 12/15 -Rocephin (12/14) expanded to cefepime (12/18), linezolid 600 mg BID (12/15), Flagyl 500 mg IV TID (12/15) Concern for myonecrosis and necrotizing fasciitis/myositis. Would -Tylenol PRN fever -Noted WBC rise 27 -> 33 -> 28, CRP 5 -> 9 -> 10 over past 48 hours including 2x fevers in <12 hours overnight on 12/18 -Repeat US 12/18- L axillary intramuscular/subcutaneous/deep tissue edema w/o drainable collection or LAD -Repeat US 12/18- L supraclavicular subcutaneous/deep tissue edema with LAD 1 .4 x 0.8 x 1.1 cm -Repeat BCx from 12/18 pending. If positive, will need KIMO for endocarditis evaluation -General surgery consulted and following- no surgical intervention planned as of present -Ceftriaxone expanded to cefepime after US findings resulted -Peripheral smear pending to evaluate for malignancy given supraclavicular LAD Acute watery diarrhea Noted onset on 12/18. Negative c dif Infected Urinalysis U/A with protein, blood, WBC, bacteria, epithelial cells. No urinary symptoms, may be acute cystitis vs contaminant. Current abx will cover regardless. Urine culture NGTD. Hyponatremia Na 126 on arrival. Initially improved but now decreasing once again, Na 131 today -Encourage continued solute intake + oral hydration -Monitor BMP F/E/N/GI: Regular diet. DVT PPx: Heparin SQ q12h Code: Full Dispo: PCU Admission and Anticipated Discharge Date Admission Date: December 12, 2023 Subjective Patient seen at bedside this AM. Patient with continued fevers throughout the weekend. Patient with soreness of the left pec area and left neck swelling that started over the weekend. Review of Systems 2 Review of Systems: as per HPI Physical Exam 2 Physical Exam: Gen: fatigued but improved appearing male in NAD HEENT: AT NC MMM Resp: no increased work of breathing, respiratory rate has slowed to a normal rate CV: clinically well perfused, no edema Abd: non-distended Psych: appropriate mood and affect Neuro: alert and oriented Results & Data Results & Data Vital Signs (Past 12 Hours) Vital Signs Temp Pulse Pulse Pulse Resp BP Pulse Ox 12/20/23 04:22 37.6 C H 12/20/23 03:20 38.1 C H 104 H 18 132/88 98 12/19/23 22:27 37.1 C 94 H 20 127/76 97 12/19/23 22:00 90 12/19/23 19:42 37.2 C 102 H 18 122/72 97 O2 Del Method 12/20/23 04:22 12/20/23 03:20 Room Air 12/19/23 22:27 Room Air 12/19/23 22:00 12/19/23 19:42 Room Air Laboratory Results 12/20/23 06:55 12/20/23 06:[address] 12/20/23 08:39 FINDINGS: Unremarkable thyroid. The thoracic aorta is normal in caliber and demonstrates standard 3-vessel arch anatomy. The heart is normal in size and without pericardial effusion. Evaluation of the lung parenchyma is modestly degraded by motion artifact. Small left pleural effusion has not significant changed in size, however there is now layering increased attenuation debris within the dependent left pleural space, image 177. Dependent left lower lobe consolidation suggestive of compressive atelectasis. A trace right pleural effusion persists. The upper lobe lung parenchyma appears clear. The trachea and central airways are patent.There are numerous prominent left supraclavicular nodes which measure up to 10 mm in short axis. There is mild infiltration throughout the mediastinum, greatest superiorly and in the prevascular space. There are prominent subcentimeter mediastinal lymph nodes, and these findings are similar to previous. There are mildly enlarged left axillary and subpectoral lymph nodes which measure up to 13 mm in short axis. No right axillary lymphadenopathy is identified. A small hiatal hernia is noted. The liver appears steatotic. The spleen is mildly enlarged measuring 14 cm in length. Skeletal structures: No lytic or blastic bony lesions are seen. Again seen is significant superficial and deep inflammation and fluid involving the soft tissues in the left lower neck, left chest wall, and extending into the left flank/upper abdomen. This appears stable to slightly progressed compared to 12/17/2023. No soft tissue gas is identified. From prior is ill-defined areas of decreased attenuation within the left pectoralis minor and major musculature and left latissimus dorsi musculature. No drainable fluid collection identified by CT. IMPRESSION: 1. Extensive inflammatory changes with edema again noted throughout the superficial and deep soft tissues of the left lower neck, axilla, chest wall, and left flank which appears to have mildly increased compared to 12/17/2023 suggestive of cellulitis/myositis with new foci of ill-defined decreased attenuation within the left pectoralis and latissimus dorsi musculature suggestive of myonecrosis/developing intramuscular abscesses. No drainable fluid collections identified by CT. 2. No subcutaneous or deep tissue air identified. 3. Stable size of the small left pleural effusion now demonstrating layering dependent hyperattenuating hemorrhage versus proteinaceous debris. 4. Probable mediastinitis with unchanged lymphadenopathy. 5. Unchanged left lower lobe consolidation.
[2023-12-20 07:24] LABS: Hematocrit (blood only) 34.3 % (42.0-52.0); Hemoglobin 11.3 g/dl (14.0-18.0); Mean Corpuscular Hemoglobin 29.3 pg (25.0-34.0); Mean Corpuscular Hgb Conc 32.9 g/dL (32.0-36.0); Mean Corpuscular Volume 88.9 fL (80.0-100.0); Mean Platelet Volume 9.3 fL (9.4-12.4); Platelet Count 407 K/uL (130-400); RDW Coefficient of Variation 14.1 % (11.5-14.5); RDW Standard Deviation 45.5 fL (36.4-46.3); Red Blood Count 3.86 M/uL (4.70-6.10); White Blood Count 22.42 K/ul (4.8-10.8)
[2023-12-20 07:41] LABS: Albumin Globulin Ratio 0.9 (0.9-2); BUN Creatinine Ratio 16.2 (10-20); Bilirubin,Total 0.6 mg/dl (0.2-1.0); C Reactive Protein 7.67 mg/dl (0-0.5); Calcium 8.1 mg/dl (8.6-10.3); Creatinine Clr Calc Pharmacy 153.7 ml/min; Est GFR (African American) 130.9 ml/min; Globulin 3.5 gm/dl (2.5-4.0); Potassium 4.5 mmol/L (3.5-5.1); Total Protein 6.5 gm/dl (6.0-8.3)
--- NOTE | 2023-12-20 08:19 | Surgery Progress Note ---
Date of Service December 20, 2023 Assessment & Plan (1) Acute mediastinitis: Plan: Events noted from over the wknd Today WBC decreased to 22 (28, 32). HRs 90-100s, Temperatures 99-100'sF US revealed persistent subcutaneous edema with supraclavicular lymphadenopathy without drainable fluid collections On exam he has fullness of L supraclavicular region. non tender. area's of L chest/flank with improving erythema and some skin desquamation He is currently maintained on cefepime, flagyl, and linezolid Thoracentesis with no growth to date A CT chest has been ordered, we will follow up on results ID following along closely Call if any questions/concerns, but no plans for general surgical involvement at this time (2) Streptococcal bacteremia: Admission and Anticipated Discharge Date Admission Date: December 12, 2023 Subjective Patient feeling okay, mostly frustrated with the up's and down's of his hospitalization. Denies cough or shortness of breath. Mostly feels some discomfort around his L [place] muscle, almost like a "pulled muscle" sensation. Otherwise doing okay. No worsening pain Physical Exam Physical Exam: awake, alert, no distress. Skin: fullness of L supraclavicular region. non tender. area's of L chest/flank with improving erythema and some skin desquamation Results & Data Vital Signs (Past 12 Hours) Vital Signs Temp Pulse Pulse Resp BP Pulse Ox O2 Del Method 12/20/23 08:07 99.0 F 113 H 17 128/81 99 Room Air 12/20/23 04:22 99.7 F H 12/20/23 03:20 100.6 F H 104 H 18 132/88 98 Room Air 12/19/23 22:27 98.8 F 94 H 20 127/76 97 Room Air 12/19/23 22:00 90 PG Care Time/CCT Total # of Minutes Spent Total Time Spent with Patient: Total time spent is greater than 50% in coordination of care (as documented) at patient's floor/unit and/or counseling patient: Coding Level of Care Code 00052 SUB INP/OBS CARE 11/25MIN Diagnoses Acute mediastinitis J98.51 Streptococcal bacteremia R78.81; B95.5
[2023-12-20] MEDS: OPTIRAY 320 500ml IV ONE (09:33)
--- NOTE | 2023-12-20 09:56 | CT Scan Report ---
CHEST CT WITH CONTRAST CT DOSE: 975.09 mGy.cm HISTORY: Follow-up study in a patient with mediastinitis and lymphadenopathy of the chest mediastini tis r/o abscess TECHNIQUE: Multiaxial CT images of the chest were performed following the IV administration of 90 cc of Optiray. A dose lowering technique was utilized adhering to the principles of ALARA. COMPARISON: Ultrasound studies 12/18/2023, chest CT 12/17/2023, 12/14/2023, 12/12/2023 FINDINGS: Unremarkable thyroid. The thoracic aorta is normal in caliber and demonstrates standard 3-v essel arch anatomy. The heart is normal in size and without pericardial effusion. Evaluation of the l norma parenchyma is modestly degraded by motion artifact. Small left pleural effusion has not significa nt changed in size, however there is now layering increased attenuation debris within the dependent l eft pleural space, image 177. Dependent left lower lobe consolidation suggestive of compressive atele ctasis. A trace right pleural effusion persists. The upper lobe lung parenchyma appears clear. The tr achea and central airways are patent.There are numerous prominent left supraclavicular nodes which me asure up to 10 mm in short axis. There is mild infiltration throughout the mediastinum, greatest supe riorly and in the prevascular space. There are prominent subcentimeter mediastinal lymph nodes, and t hese findings are similar to previous. There are mildly enlarged left axillary and subpectoral lymph nodes which measure up to 13 mm in mark rt axis. No right axillary lymphadenopathy is identified. A small hiatal hernia is noted. The liver a ppears steatotic. The spleen is mildly enlarged measuring 14 cm in length. Skeletal structures: No ly tic or blastic bony lesions are seen. Again seen is significant superficial and deep inflammation and fluid involving the soft tissues in t he left lower neck, left chest wall, and extending into the left flank/upper abdomen. This appears st able to slightly progressed compared to 12/17/2023. No soft tissue gas is identified. From prior is ill-defined areas of decreased attenuation within the left pectoralis minor and major m usculature and left latissimus dorsi musculature. No drainable fluid collection identified by CT. IMPRESSION: 1. Extensive inflammatory changes with edema again noted throughout the superficial and deep soft tis sues of the left lower neck, axilla, chest wall, and left flank which appears to have mildly increase d compared to 12/17/2023 suggestive of cellulitis/myositis with new foci of ill-defined decreased atte nuation within the left pectoralis and latissimus dorsi musculature suggestive of myonecrosis/develop ing intramuscular abscesses. No drainable fluid collections identified by CT. 2. No subcutaneous or deep tissue air identified. 3. Stable size of the small left pleural effusion now demonstrating layering dependent hyperattenuati ng hemorrhage versus proteinaceous debris. 4. Probable mediastinitis with unchanged lymphadenopathy. 5. Unchanged left lower lobe consolidation. ACT 112: Negative or not required by law. Electronically signed by: Milo Davis M.D. 12/20/2023 9:54 AM
--- NOTE | 2023-12-20 09:56 | Infectious Disease Progress Nt ---
Date of Service December 20, 2023 Assessment & Plan (1) Group A streptococcal infection: (2) Necrotizing fasciitis due to Streptococcus pyogenes: (3) Acute mediastinitis: (4) Streptococcal bacteremia: Plan Uri Barrientos is a 43-year-old man with no significant PMH who presents to [facility] on 12/12/23 with left axillary pain, redness, swelling, and fevers, with CT chest showing extensive inflammation in L neck, supraclavicular region, L axilla, chest wall, and with extension into mediastinum. Found to have GAS bacteremia. ID is consulted for L axillary and chest wall SSTI and necrotizing fasciitis, mediastinitis, and GAS bacteremia. 12/14 CT showing increased pleural effusions and somewhat increasing spread of infection through chest wall, myositis, and mediastinitis. S/p L-sided thoracentesis on 12/16 yielding exudative fluid. Repeat CT on 12/17 with overall improved soft tissue infection but continued mediastinitis and myositis, small pleural effusions. Pt again febrile on 12/17. With invasive GAS infection, including with SSTI, myositis, and necrotizing soft tissue infection (NSTI) of the L chest and trunk, as well as mediastinitis and pleural effusions. Appears to have started in L axillary region, rather than pharyngeal source although spread into mediastinum is similar to deep neck space infection with concern that necrotizing mediastinitis can rapidly spread. Appreciate surgery following closely. 12/16 L thoracentesis: pH 7.41, exudative, LDH 481 (serum 288, ULN 244), total protein <3, glucose 93, amylase <10. 14k WBC (91% neutrophils, 4% lymphs, 5% mesos/macros/monos), 62k rbc, red/cloudy. Also with GAS bacteremia, thus far repeat BCx from 12/13 are NGTD and 12/13 TTE without evidence of valvular vegetations. Original port of entry may be a puncture wound of his L 2nd finger (was cut on a can, pt later cleaned gutters, finger developed a boil which drained purulent fluid and has since healed. Pt with Tdap 03/2023). Pt with hypotension to 80s/50s in the ED though improved with resuscitation. Also with signs of multiorgan involvement including MICHEAL, worsening plt count, and mildly elevated bilirubin. Together, these could indicative a component of possible GAS-related toxic shock syndrome. Also with pyuria and mild perinephric stranding b/l on CT, UA also with granular casts. Also with desquamation from his tongue, as well as desquamation from the head of his penis, which may be manifestations of Strep TSS. Although GAS likely driving pathogen, with mediastinitis component and thus can remain slightly broader for time being. I suspect that the reason for his persistent fevers and leukocytosis has been ongoing development of myositis/myonecrosis and abscesses that require source control rather than antibiotic failure. Continue to suspect that this is driven by GAS as the main pathogen however it is reasonable to continue broad coverage for pending obtaining deep cultures. Would continue linezolid (maintain GAS anti-toxin effect), cefepime, and metronidazole for now. No esophageal/GI involvement to suggest empiric yeast coverage for mediastinitis especially given known GAS infection. 12/15 SpCx with Stacey but would not treat this, as this is likely colonization; no evidence of deeper yeast involvement. At this point he has demonstrated failure of conservative measures given worsening noted on 12/20 CT chest and he warrants transfer for CT surgery evaluation for consideration of I&D of necrotizing SSTI due to the life and limb threatening nature of this severe infection. ID Problem List: 1.L axillary and L chest wall SSTI c/f necrotizing fasciitis, mediastinitis 2.GAS bacteremia with c/f GAS-related toxic shock syndrome 3.Acute kidney injury Recommendations: - Continue linezolid (antitoxin) 600 mg PO BID, cefepime 2g IV q12h, and metronidazole 500 mg IV TID - Recommend transfer to tertiary care for CT surgery evaluation for consideration of I&D of necrotizing SSTI and would send deep specimens for bacterial, fungal and AFB cultures as well as for pathology - Final antibiotic plan pending deep culture results and clinical course - If intraop specimens are no growth or grow only GAS, then would switch from cefepime/flagyl to cefazolin 2g IV q8h for directed therapy against GAS and continue linezolid for anti-toxin effects pending clinical improvement - Appreciate surgery involvement - Pt to follow with allergy for outpatient PCN testing - F/u 12/16 pleural fluid Cx Discussed with Dr. Teixeira Thank you for involving us in the care of this patient. Infectious diseases is will follow with you. Please contact us via the [facility] call center at [phone] with any further questions or concerns. Evelin Frank MD, PhD ID attending [facility] Admission and Anticipated Discharge Date Admission Date: December 12, 2023 Subjective Subsequent visit was provided via telemedicine using two-way real-time interactive telecommunication between the patient and the telemedicine provider. For the duration of the visit, the provider was performing the assessment from a different facility than the patient. This includesuse of bluetooth stethoscope forauscultationperformed by the telepresenter that the telemedicine provider can hear if described in the physical exam. [employer] contact information: Please call [facility] Call Center [phone]. (Phone Number For Physician Use Only) After establishing a telemedicine visit, patient was: Patient/authorized rep acknowledged consent and understanding Time Spent with Patient: Subsequent => 55 min Febrile to 38.1 C early this morning. Has been tachycardic in the 100s-110s, otherwise hemodynamically stable with stable respiratory status on room air. Labs today demonstrate WBC 22.42 from 28.71, hgb 11.3, plt 407, Na 131, Cr 0.74, CRP 7.67 from 10.01, procalcitonin 0.38 from 0.76. He was switched from ceftriaxone to cefepime on 12/18. He has been continued on linezolid and metronidazole. He was evaluated by surgery this morning who are recommending repeat CT chest and no plan for surgical intervention at this time. Patient interview: He had part of a day where the left side of his neck hurt. All of this stuff was gone and he was able to put his hands up behind his head. Then it was hard for him to lift his arm. It feels like he has a strained muscle. He was previously unable to move his arm and the glands under his arm were enormous. He thinks it got worse 3-4 days ago. His pec/armpit area feels "clenched" and then he started spiking temperatures again. He thinks that he is feeling a little better every day. Physical Exam Constitutional: WDWN man resting comfortably in bed, NAD Respiratory: Normal respiratory effort Skin: Large swollen area just distal to left axilla with associated light pink blanching erythema extending down left flank; area of superficial desquamating skin at lower left flank Neurologic: A&Ox4, facial expression symmetric, moving all extremities, no focal deficits Psychiatric: Appropriate mood and affect Results & Data Vital Signs (Past 12 Hours) Vital Signs Temp Pulse Pulse Resp BP Pulse Ox O2 Del Method 12/20/23 08:07 37.2 C 113 H 17 128/81 99 Room Air 12/20/23 04:22 37.6 C H 12/20/23 03:20 38.1 C H 104 H 18 132/88 98 Room Air 12/19/23 22:27 37.1 C 94 H 20 127/76 97 Room Air 12/19/23 22:00 90 Laboratory Results Short CBC 12/20/23 Range/Units 06:55 WBC 22.42 H (4.8-10.8) K/ul Hgb 11.3 L (14.0-18.0) g/dl Hct 34.3 L (42.0-52.0) % Plt Count 407 H (130-400) K/uL BMP 12/20/23 06:55 Sodium 131 L Potassium 4.5 Chloride 98 Carbon Dioxide 27 BUN 12 Creatinine 0.74 Glucose 92 Calcium 8.1 L Liver Function 12/20/23 Range/Units 06:55 Total Bilirubin 0.6 (0.2-1.0) mg/dl AST 21 (13-39) U/L ALT 26 (7-52) U/L Alkaline Phosphatase 93 (34-104) U/L Albumin 3.0 L (3.4-5.0) gm/dl Diagnostic Findings Axilla US 12/18/23 12:30 US axilla LT HISTORY: 43 years-old Male sepsis, swelling acute pain and swelling of the left axilla COMPARISON: Chest CT 12/17/2023 TECHNIQUE: Multiple real-time sonographic images of the left axilla soft tissues were obtained assessing grayscale appearance and color flow FINDINGS/IMPRESSION: There is persistent intramuscular, subcutaneous and deep tissue edema within the left axilla. No drainable fluid collections and no pathologically enlarged lymph nodes identified by ultrasound. ACT 112: Negative or not required by law. The above report was generated using voice recognition software. It may contain grammatical, syntax or spelling errors. Electronically signed by: Milo Davis M.D. 12/18/2023 3:09 PM Soft Tissue Ultrasound 12/18/23 12:31 US soft tissue neck HISTORY: 43 years-old Male supraclavicular region dx sepsis, swelling acute left-sided chest pain COMPARISON: Axillary ultrasound the same day, chest CT 12/17/2023 TECHNIQUE: Multiple real-time sonographic images of the left axillary supraclavicular tissues were obtained assessing grayscale appearance and color flow. FINDINGS/IMPRESSION: There is persistent extensive subcutaneous, and deep tissue edema within the imaged tissues of the left chest/supraclavicular tissues along with supracla vicular lymphadenopathy measuring up to 1.4 x 0.8 x 1.1 cm. No drainable fluid collections. ACT 112: Negative or not required by law. The above report was generated using voice recognition software. It may contain grammatical, syntax or spelling errors. Electronically signed by: Milo Davis M.D. 12/18/2023 3:[address] 12/20/23 08:[address] WITH CONTRAST CT DOSE: 975.09 mGy.cm HISTORY: Follow-up study in a patient with mediastinitis and lymphadenopathy of the chest mediastinitis r/o abscess TECHNIQUE: Multiaxial CT images of the chest were performed following the IV administration of 90 cc of Optiray. A dose lowering technique was utilized adhering to the principles of ALARA. COMPARISON: Ultrasound studies 12/18/2023, chest CT 12/17/2023, 12/14/2023, 12/12/2023 FINDINGS: Unremarkable thyroid. The thoracic aorta is normal in caliber and demonstrates standard 3-vessel arch anatomy. The heart is normal in size and without pericardial effusion. Evaluation of the lung parenchyma is modestly degraded by motion artifact. Small left pleural effusion has not significant changed in size, however there is now layering increased attenuation debris within the dependent left pleural space, image 177. Dependent left lower lobe consolidation suggestive of compressive atelectasis. A trace right pleural effusion persists. The upper lobe lung parenchyma appears clear. The trachea and central airways are patent.There are numerous prominent left supraclavicular nodes which measure up to 10 mm in short axis. There is mild infiltration throughout the mediastinum, greatest superiorly and in the prevascular space. There are prominent subcentimeter mediastinal lymph nodes, and these findings are similar to previous. There are mildly enlarged left axillary and subpectoral lymph nodes which measure up to 13 mm in short axis. No right axillary lymphadenopathy is identified. A small hiatal hernia is noted. The liver appears steatotic. The spleen is mildly enlarged measuring 14 cm in length. Skeletal structures: No lytic or blastic bony lesions are seen. Again seen is significant superficial and deep inflammation and fluid involving the soft tissues in the left lower neck, left chest wall, and extending into the left flank/upper abdomen. This appears stable to slightly progressed compared to 12/17/2023. No soft tissue gas is identified. From prior is ill-defined areas of decreased attenuation within the left pectoralis minor and major musculature and left latissimus dorsi musculature. No drainable fluid collection identified by CT. IMPRESSION: 1. Extensive inflammatory changes with edema again noted throughout the superficial and deep soft tissues of the left lower neck, axilla, chest wall, and left flank which appears to have mildly increased compared to 12/17/2023 suggestive of cellulitis/myositis with new foci of ill-defined decreased attenuation within the left pectoralis and latissimus dorsi musculature suggestive of myonecrosis/developing intramuscular abscesses. No drainable fluid collections identified by CT. 2. No subcutaneous or deep tissue air identified. 3. Stable size of the small left pleural effusion now demonstrating layering dependent hyperattenuating hemorrhage versus proteinaceous debris. 4. Probable mediastinitis with unchanged lymphadenopathy. 5. Unchanged left lower lobe consolidation. ACT 112: Negative or not required by law. Electronically signed by: Milo Davis M.D. 12/20/2023 9:54 AM
--- NOTE | 2023-12-20 18:20 | Discharge Summary ---
Date of Service December 20, 2023 Admission HPI Per Admitting Provider Uri is a 43 year old male with no discernable past medical history coming in for left axilla pain x2 days. Patient states that he had developed soreness below the L armpit around 2 days ago and developed fevers up to 103 and 104 to go with it. He had nausea and vomiting during the first 24 hours as well as some diarrhea. He noticed he had some pain when taking a deep breath. Him and his went to urgent care yesterday but conservative treatment was advised. The area below the armpit became more red and swollen and so he decided to come to the ER to be evaluated. Their son had a recent upper respiratory infection with sore throat earlier in the week. Patient has not history of previous skin or soft tissue infection. Patient is not a smoker. Patient denies chest pain or urinary symptoms. Patient states he had an accident a year or so ago which caused a spinal compression fracture and he was treated nonsurgically at the time without issue. The pain does not go to the midline spine and is more focused at the left axilla and anterior chest. In the ER CBC unremarkable except for Neutrophil count of 9.15. CMP showed Na 126, creatinine 1.50, lactate of 4.9 followed by 3.2, T. bili 1.9, D bili 0.6, procal 25.60. UA with blood, protein, WBC, bacteria, epithelial cells. Viral PCR negative. CXR negative for cardiopulmonary findings, CT chest w/ extensive inflammation w/in L lower neck, supraclavicular region, L axilla and chest wall extending into mediastinum; etiology not clear, findings favor extensive infectious process with cellulitis; no soft tissue gas, infectious fasciitis cannot be excluded; associated asymmetric enlargement of multiple left sided muscles could represent infectious myositis. Admission Exam Per Admitting Provider Constitutional: WD/WN, vitals as above Eyes: PERRL, conjunctivae normal, anicteric sclerae ENMT: erythema of posterior oropharynx without swelling. Respiratory: normal respiratory effort, lungs clear to auscultation Cardiovascular: RRR, no murmur, no edema Chest (Breasts): Additional Comments: Normal appearance aside from erythema on anterior chest. Gastrointestinal (Abdomen): normal bowel sounds, soft, nontender, no hepatosplenomegaly Skin: Area of swelling and erythema without fluctuance of papules around 6-7cm in diameter at the L axilla. Pain elicited with palpation at the left axilla. scattered pinpoints of erythema on upper extremities and chest. Psychiatric: A+Ox3, euthymic affect Lymphatic: No increased cervical or axillary lymphadenopathy noted bilaterally. Principal Diagnosis myositis Discharge Exam Gen: fatigued but improved appearing male in NAD HEENT: AT NC MMM Resp: no increased work of breathing, respiratory rate has slowed to a normal rate CV: clinically well perfused, no edema Abd: non-distended Psych: appropriate mood and affect Neuro: alert and oriented Skin: decreased swelling and erythema of the trunk - some desquamation of the skin where he was erythematous, continued tenderness of the left pec and axilla, swelling of the supraclavicular region on the left Discharge Data Allergies Allergy/AdvReac Type Severity Reaction Status Date / Time amoxicillin Allergy Unknown HAPPENED Verified 12/15/23 11:07 AN INFANT Penicillins Allergy Unknown HAPPENED Verified 12/12/23 08:10 AN vancomycin AdvReac Flushing Verified 12/15/23 11:15 Consultations 12/12/23 07:24 ED Decision to Admit Stat 12/14/23 07:31 Consult Infectious Diseases Routine 12/14/23 09:30 Consult General Surgery Routine 12/14/23 10:56 Consult Allergy / Immunology Routine 12/15/23 11:51 Consult Pulmonology Routine 12/20/23 16:48 Burn CD for patient Routine Ordered Studies Chest X-Ray 12/12/23 05:16 FINDINGS: Lung volumes are normal. Lungs are clear. There is no pneumothorax or pleural effusion. Cardiac size is normal. Mediastinal contours are normal. There is no evidence for pulmonary edema. Left lower cervical, axillary and chest wall soft tissue swelling is present. No soft tissue gas is identified. IMPRESSION: 1. No acute cardiopulmonary findings. 2. Nonspecific left lower cervical, axillary and chest wall soft tissue swelling. Chest CT 12/12/23 05:52 FINDINGS: Note is made of extensive fluid and stranding within the left lower neck, supraclavicular region, left axillar and left chest wall. This extends into the left superior mediastinum. Multiple mildly enlarged lymph nodes are probably reactive. A left level 4 cervical lymph node on image 17 of 273 measures 2 x 0.8 cm. A left axillary node measures 1.3 x 1.3 cm. There is asymmetric enlargement of the left pectoralis major and minor muscles as well as the left shoulder and left lower cervical musculature. This also involves the lateral chest wall musculature. No soft tissue gas. No rim-enhancing fluid collection is present. Size of the heart is normal. There is no pericardial effusion. Trace left pleural effusion is present. There is no consolidation to suggest pneumonia. No areas of bony destruction are present. Visualized portions of the upper abdomen demonstrate mild splenomegaly. There is possible hepatic steatosis. Mild symmetric bilateral perinephric stranding. IMPRESSION: 1. Extensive inflammation within the left lower neck, supraclavicular region, left axilla and chest wall, extending into the mediastinum. The etiology is not clear however the findings favor an extensive infectious process with cellulitis. Although no soft tissue gas, infectious fasciitis cannot be excluded. Associated asymmetric enlargement of multiple left-sided muscles, as described above, could represent an infectious myositis. No soft tissue gas. No rim-enhancing fluid collections. 2. Left lower cervical and axillary lymphadenopathy, likely reactive. 3. Trace left pleural effusion. 4. Mild splenomegaly. Chest X-Ray 12/13/23 11:19 FINDINGS: Left-sided chest wall soft tissue thickening again noted. This is similar to the prior study. There is a small left and trace right pleural effusion. These have slightly progressed. No pneumothorax. The heart is mildly enlarged. No focal lung consolidations to suggest a pneumonia. There is mild central pulmonary vascular congestion without overt edema. No acute fractures identified. IMPRESSION: 1. Left chest wall soft tissue swelling again noted 2. Mild cardiomegaly, mild congestive change, and bilateral pleural effusions have slightly progressed. Cervical Spine CT 12/13/23 11:30 FINDINGS: There is an old, healed left C7 transverse process fracture. No acute fractures. No subluxation. Prevertebral soft tissues and the C1-C2 interval are intact. No pneumothorax. Left lower neck soft tissue edema is again noted and better appreciated on the recent chest CT. No loculated fluid collections on this noncontrast study to suggest an abscess. The prevertebral soft tissues appear intact. Evaluation for an epidural abnormality is essentially nondiagnostic by CT. Mild left lower cervical lymphadenopathy is again noted. IMPRESSION: 1. No acute fractures within the cervical spine. 2. Redemonstration of the left lower neck soft tissue edema with mild left lower cervical lymphadenopathy. This is similar to the prior CT examination. This could represent an infectious or inflammatory process. 3. The prevertebral soft tissues are intact. 4. No CT evidence for discitis/osteomyelitis within the cervical spine. Chest CT 12/14/23 09:30 FINDINGS: Thyroid: Imaged portions of the thyroid gland are normal in size and attenuation. Thoracic aorta: The thoracic aorta is normal in caliber and demonstrates standard 3-vessel arch anatomy. No dissection is seen. Pulmonary vasculature: The pulmonary trunk is normal in caliber. There are no filling defects identified in the central pulmonary vessels to indicate pulmonary embolus. Note that this examination was not protocoled for evaluation of the pulmonary arteries. Heart: The heart is normal in size and without pericardial effusion. Lungs and pleural spaces: Evaluation of the lung parenchyma is significantly degraded by motion artifact. There is a small left pleural effusion with dependent consolidation. This has increased from previous. A trace right pleural effusion is new from 12/12/2023. There is dependent atelectasis in the right lung base. The upper lobe lung parenchyma appears clear. The trachea and central airways are patent. Lower neck: There are numerous prominent left supraclavicular nodes which measure up to 11 mm in short axis. Mediastinum: There is mild infiltration throughout the mediastinum, greatest superiorly and in the prevascular space. There are prominent subcentimeter mediastinal lymph nodes. Angelina: Clear. Axillae: There are mildly enlarged left axillary and subpectoral lymph nodes which measure up to 12 mm in short axis. No right axillary lymphadenopathy is identified. Upper abdomen: A small hiatal hernia is noted. The liver appears steatotic. Skeletal structures: No lytic or blastic bony lesions are seen. Soft tissues: Again seen is significant superficial and deep inflammation and fluid involving the soft tissues in the left lower neck, the left chest wall, and extending into the left flank/upper abdomen. This has modestly increased from previous, as there is now mild inflammation in the right anterior upper chest wall which was not seen on 12/12/2023. No soft tissue gas is identified. There is no organized fluid collection to suggest abscess. There is mild edema within the pectoralis and chest wall musculature suggesting myositis. The left axillary vessels appear patent. IMPRESSION: 1. Significantly motion compromised examination. 2. Again seen is extensive inflammatory change and fluid within the superficial and deep soft tissues of the left lower neck, axilla, chest wall, and left flank. This has somewhat increased from 12/12/2023, with inflammatory change now seen in the right anterior/upper chest wall. This is pathologically indeterminant, and almost certainly infectious in etiology. This likely represents cellulitis. A fasciitis is not excluded. No soft tissue gas is seen and no organized/drainable fluid collection is identified. 3. Inflammation extends into the mediastinum, likely representing mediastinitis. There is also myositis of the left chest wall musculature. 4. Mildly enlarged left supraclavicular, axillary, and mediastinal lymph nodes are likely reactive. 5. Left larger than right pleural effusions with dependent consolidation. These have increased in size from previous. 6. Mild splenomegaly. 7. Additional findings as above. Thoracentesis/Paracentesis US 12/16/23 00:00 PROCEDURE: Procedure and risks were explained. Informed consent was obtained. A final timeout was completed. The left posterior thorax was prepped and draped in sterile fashion. 1% buffered lidocaine was utilized for skin anesthesia. Utilizing ultrasound guidance, a 5 [place] safety centesis catheter was advanced into the small left pleural effusion. Ultrasound images were obtained. Approximately 300 mL of cloudy johana-colored fluid was removed and sent to the lab for analysis. The catheter was removed and Band-Aid applied. The patient tolerated the procedure well. Vital signs will be monitored on the floor and a chest x-ray will be obtained post procedure. IMPRESSION: Ultrasound-guided left thoracentesis as detailed above. Performed, dictated, and signed by Manas Frank PA-C; to be co-signed by Dr. Rubens Becker. Chest X-Ray 12/16/23 12:10 FINDINGS: There is no pneumothorax following left thoracentesis. No significant residual pleural effusion is identified. Basilar opacities again noted. No evidence for pulmonary edema. Cardiomediastinal silhouette is stable. IMPRESSION: 1. No pneumothorax following left thoracentesis. No residual pleural effusion identified. 2. Persistent left basilar opacity which could reflect consolidation or atelectasis. Chest CT 12/17/23 07:27 FINDINGS: Thyroid: Imaged portions of the thyroid gland are normal in size and attenuation. Thoracic aorta: The thoracic aorta is normal in caliber and demonstrates standard 3-vessel arch anatomy. Heart: The heart is normal in size and without pericardial effusion. Lungs and pleural spaces: Evaluation of the lung parenchyma is modestly degraded by motion artifact. A small left pleural effusion with left basilar consolidation is not significantly changed from 12/16/2023. A trace right pleural effusion persists. The upper lobe lung parenchyma appears clear. The trachea and central airways are patent. Lower neck: There are numerous prominent left supraclavicular nodes which measure up to 10 mm in short axis. Mediastinum: There is mild infiltration throughout the mediastinum, greatest superiorly and in the prevascular space. There are prominent subcentimeter mediastinal lymph nodes, and these findings are similar to previous. Angelina: Not well assessed A contra. Axillae: There are mildly enlarged left axillary and subpectoral lymph nodes w hich measure up to 13 mm in short axis. No right axillary lymphadenopathy is identified. Upper abdomen: A small hiatal hernia is noted. The liver appears steatotic. The spleen is mildly enlarged measuring 14 cm in length. Skeletal structures: No lytic or blastic bony lesions are seen. Soft tissues: Again seen is significant superficial and deep inflammation and fluid involving the soft tissues in the left lower neck, the left chest wall, and extending into the left flank/upper abdomen. This appears most improved as compared to 12/14/2023. No soft tissue gas is identified. There is no organized fluid collection to suggest abscess identified on this unenhanced examination. There is mild edema within the pectoralis and chest wall musculature suggesting myositis. The left axillary vessels appear patent. IMPRESSION: 1. Suboptimal examination without IV contrast. 2. Again seen is extensive inflammatory change and fluid within the superficial and deep soft tissues of the left lower neck, axilla, chest wall, and left flank. This has modestly improved as compared to 12/14/2023. This is pathologically indeterminant, and almost certainly infectious in etiology. This likely represents cellulitis. A fasciitis is not excluded. No soft tissue gas is seen and no organized/drainable fluid collection is identified on this unenhanced examination. 3. Inflammation extends into the mediastinum, likely representing mediastinitis. There is also myositis of the left chest wall musculature. 4. Mildly enlarged left supraclavicular, axillary, and mediastinal lymph nodes are likely reactive and similar to previous. 5. Left larger than right pleural effusions with dependent consolidation. These have not appreciably changed. 6. Mild splenomegaly. 7. Additional findings as above. Axilla US 12/18/23 12:30 FINDINGS/IMPRESSION: There is persistent intramuscular, subcutaneous and deep tissue edema within the left axilla. No drainable fluid collections and no pathologically enlarged lymph nodes identified by ultrasound. Soft Tissue Ultrasound 12/18/23 12:31 FINDINGS/IMPRESSION: There is persistent extensive subcutaneous, and deep tissue edema within the imaged tissues of the left chest/supraclavicular tissues along with supraclavicular lymphadenopathy measuring up to 1.4 x 0.8 x 1.1 cm. No drainable fluid collections. Chest CT 12/20/23 08:39 FINDINGS: Unremarkable thyroid. The thoracic aorta is normal in caliber and demonstrates standard 3-vessel arch anatomy. The heart is normal in size and without pericardial effusion. Evaluation of the lung parenchyma is modestly degraded by motion artifact. Small left pleural effusion has not significant changed in size, however there is now layering increased attenuation debris within the dependent left pleural space, image 177. Dependent left lower lobe consolidation suggestive of compressive atelectasis. A trace right pleural effusion persists. The upper lobe lung parenchyma appears clear. The trachea and central airways are patent.There are numerous prominent left supraclavicular nodes which measure up to 10 mm in short axis. There is mild infiltration throughout the mediastinum, greatest superiorly and in the prevascular space. There are prominent subcentimeter mediastinal lymph nodes, and these findings are similar to previous. There are mildly enlarged left axillary and subpectoral lymph nodes which measure up to 13 mm in short axis. No right axillary lymphadenopathy is identified. A small hiatal hernia is noted. The liver appears steatotic. The spleen is mildly enlarged measuring 14 cm in length. Skeletal structures: No lytic or blastic bony lesions are seen. Again seen is significant superficial and deep inflammation and fluid involving the soft tissues in the left lower neck, left chest wall, and extending into the left flank/upper abdomen. This appears stable to slightly progressed compared to 12/17/2023. No soft tissue gas is identified. From prior is ill-defined areas of decreased attenuation within the left pectoralis minor and major musculature and left latissimus dorsi musculature. No drainable fluid collection identified by CT. IMPRESSION: 1. Extensive inflammatory changes with edema again noted throughout the superficial and deep soft tissues of the left lower neck, axilla, chest wall, and left flank which appears to have mildly increased compared to 12/17/2023 suggestive of cellulitis/myositis with new foci of ill-defined decreased attenuation within the left pectoralis and latissimus dorsi musculature suggestive of myonecrosis/developing intramuscular abscesses. No drainable fluid collections identified by CT. 2. No subcutaneous or deep tissue air identified. 3. Stable size of the small left pleural effusion now demonstrating layering dependent hyperattenuating hemorrhage versus proteinaceous debris. 4. Probable mediastinitis with unchanged lymphadenopathy. 5. Unchanged left lower lobe consolidation. Hospital Course (1) Pleural effusion: 43 year old male admitted for management of moderate to severe sepsis and lymphangitis with mediastinitis ?myositis with repeat imaging showing concern for myonecrosis. Sepsis secondary to lymphangitis/myositis with GAS bacteremia Concern for myonecrosis on updated CT Chest CT chest with evidence with lymphangitis, mediastinitis, and myositis. CT C- Spine without signs of abscess. Blood cultures growing pansensitive gram positive GAS. Repeat BCx NGTD x48h. Thoracentesis 12/16 with exudative fluid - no signs of empyema at that time. TTE negative for vegetations. US 12/18- L axillary intramuscular/subcutaneous/deep tissue edema w/o drainable collection or LAD. Repeat US 12/18- L supraclavicular subcutaneous/deep tissue edema with LAD 1.4 x 0.8 x 1.1 cm. Consults: ID, pulm, and gen surg Blood cultures 12/12 - GAS bacteremia, pansensitive Blood cultures 12/13 NGTD x 48H Blood cultures 12/18 NGTD x 48H Urine cx 12/12 NGTD Sputum culture 12/15 - no albicans Pleural cx - NGTD Patient with continued fevers and leukocytosis. Concern for myonecrosis and necrotizing fasciitis/myositis. Discussed with ID and general surgery. Recommend transfer to tertiary care center with cardiothoracic surgery. [place] [facility] [place] Has bed available and transport. Transport agreement signed. Antibiotics cefepime, daptomycin, and clindamycin (anti-toxin) 12/12 - 12/15 added metronidazole 12/14 linezolid and ceftriaxone 12/15 expanded back to cefepime 12/18 currently on linezolid, cefepime, and flagyl Acute watery diarrhea Noted onset on 12/18. Negative c dif Infected Urinalysis U/A with protein, blood, WBC, bacteria, epithelial cells. No urinary symptoms, may be acute cystitis vs contaminant. Current abx will cover regardless. Urine culture NGTD. Hyponatremia Na 126 on arrival. Initially improved but now decreasing once again, Na 131 today -Encourage continued solute intake + oral hydration -Monitor BMP F/E/N/GI: Regular diet. DVT PPx: Heparin SQ q12h Code: Full Dispo: PCU (2) Necrotizing fasciitis due to Streptococcus pyogenes: (3) Acute mediastinitis: (4) Penicillin allergy: (5) Streptococcal bacteremia: (6) Group A streptococcal infection: (7) Sepsis: (8) Cellulitis of arm, left: Total Time Total Time Spent Total Time Spent (In Minutes): 42 Discharge Plan Discharge Items Patient Disposition: Transfer Acute [facility] Reason For Visit: CELLULITIS, MYOSITIS Discharge Diagnosis: necrotizing fasciitis Activity: Per Instructions section Non-emergency contact: Primary Care Provider Call non-emergency contact if: your temperature is above 101 Follow-up/Referrals: Silas Garcia MD [Physician] - (1-2 months after discharge, patient seen inpatient) Stanislaw Pacheco MD [Primary Care Provider] - Diet: Regular Addtl Attending Provider Instructions: 43 year old male admitted for management of moderate to severe sepsis and lymphangitis with mediastinitis ?myositis with repeat imaging showing concern for myonecrosis. Sepsis secondary to lymphangitis/myositis with GAS bacteremia Concern for myonecrosis on updated CT Chest CT chest with evidence with lymphangitis, mediastinitis, and myositis. CT C- Spine without signs of abscess. Blood cultures growing pansensitive gram positive GAS. Repeat BCx NGTD x48h. Thoracentesis 12/16 with exudative fluid - no signs of empyema at that time. TTE negative for vegetations. US 2/17- L axillary intramuscular/subcutaneous/deep tissue edema w/o drainable collection or LAD. Repeat US 2/17- L supraclavicular subcutaneous/deep tissue edema with LAD 1.4 x 0.8 x 1.1 cm. Consults: ID, pulm, and gen surg Blood cultures 12/12 - GAS bacteremia, pansensitive Blood cultures 12/13 NGTD x 48H Blood cultures 12/18 NGTD x 48H Urine cx 12/12 NGTD Sputum culture 12/15 - no albicans Pleural cx - NGTD Patient with continued fevers and leukocytosis. Concern for myonecrosis and necrotizing fasciitis/myositis. Discussed with ID and general surgery. Recommend transfer to tertiary care center with cardiothoracic surgery. [place] [facility] [place]. Has bed available. Awaiting transport. Antibiotics cefepime, daptomycin, and clindamycin (anti-toxin) 12/12 - 12/15 added metronidazole 12/14 linezolid and ceftriaxone 12/15 expanded back to cefepime 12/18 currently on linezolid, cefepime, and flagyl Acute watery diarrhea Noted onset on 12/18. Negative c dif Infected Urinalysis U/A with protein, blood, WBC, bacteria, epithelial cells. No urinary symptoms, may be acute cystitis vs contaminant. Current abx will cover regardless. Urine culture NGTD. Hyponatremia Na 126 on arrival. Initially improved but now decreasing once again, Na 131 today -Encourage continued solute intake + oral hydration -Monitor BMP F/E/N/GI: Regular diet. DVT PPx: Heparin SQ q12h Code: Full Dispo: PCU Pending Studies at Discharge: No Stand-Alone Forms: My [facility] Skilled Items Patient informed of condition?: Yes DNR: No Discharge Level of Care: Other Communicable Disease: Yes (necrotizing fasciitis ) Discharge Prognosis: Stable Lines: Peripheral IV Urinary Catheter: No Medications and DC Order Prescriptions: New acetaminophen 325 mg Tablet 650 mg PO Q4H PRNQty: 0 0RF polyethylene glycol 3350 [Miralax] 17 gram Powder In Packet 17 g PO DAILY PRNQty: 0 0RF linezolid 600 mg Tablet 600 mg PO BID Qty: 0 0RF pantoprazole 40 mg Tablet,Delayed Release (Dr/Ec) 40 mg PO BID Qty: 0 0RF heparin, porcine (PF) 5,000 unit/0.5 mL Syringe 5,000 unit subcut Q12 Qty: 0 0RF ondansetron HCl (PF) 4 mg/2 mL Solution 4 mg IV Q6H PRNQty: 0 0RF No Action ondansetron 8 mg tablet,disintegrating 8 mg PO TID PRN (Reason: Nausea And Vomiting) Discharge Orders: Discharge Order (Routine); Ordered 12/20/23 Ordered By: Vicky Teixeira Admission Data Admit Date/Time: 12/12/23 15:06 Attending Provider: Altagracia Navarrete Admit Provider: Noe Starr Primary Care Provider: Stanislaw Pacheco Other Providers: Pato Kline; Ginny Isbell; Susan York; Cristy Issa; Светлана Argueta; Cynthia Pratt; Noé Lew; Evelin Frank; Juanita Nicholson; Manas Vargas; Nicole Vang; Kristine Wong Supervising Physician Co-Signing Physician Notes I personally examined the patient and verified de paz points of history and exam, discussed case, and agree with decision making and plan documented by Dr. Teixeira. Meeting today with patient, his Vanita, Dr. Frank, and primary team reviewed worsening CT scan results and [place] [facility] [place]. Continue IV linezolid, cefepime, and metronidazole. Transfer arranged and patient transported at discharge. Resident Activity Tracking Resident Involvement: Resident Care Provided Care Provided: Adult Hospital Medicine
[2023-12-21 16:22] LABS: Pleural Fluid, Albumin 1.2 g/dL
== END 2023-12-20 20:31 | disposition short-term general hospital (02) | DRG 871 ==
LOC: SUATTDRO → ED 05:04 → EDINP 09:12 → SUATTDRO 15:06 → 2S 12-13 14:43
DX: Z88.0 Allergy status to penicillin; E87.1 Hypo-osmolality and hyponatremia; N30.00 Acute cystitis without hematuria; M72.6 Necrotizing fasciitis; A40.0 Sepsis due to streptococcus, group A; J90 Pleural effusion, not elsewhere classified; N17.9 Acute kidney failure, unspecified; J98.51 Mediastinitis; L03.112 Cellulitis of left axilla; L03.898 Acute lymphangitis of other sites; R65.20 Severe sepsis without septic shock; I10 Essential (primary) hypertension; Z88.1 Allergy status to other antibiotic agents; M60.08 Infective myositis, other site